=== PATIENT | male | born 1945 | race Caucasian/White ===

== ENCOUNTER 2020-02-09 09:20 | Outpatient (REF) | payer OTHER, SELFPAY | END 2020-02-09 09:21 | disposition home or self-care (01) | LOC: HO.LAB 09:20 | PROVIDERS: PCP Internal Medicine Geriatric Medicine; Visit Provider Internal Medicine | DX: Z20.828 Contact with and (suspected) exposure to other viral communicable diseases (principal) | CPT/HCPCS: C9803; U0003 ==

== ENCOUNTER 2021-12-23 10:20 | Outpatient (REF) | payer OTHER, SELFPAY | END 2021-12-23 10:21 | disposition home or self-care (01) | LOC: HO.US 10:20 | PROVIDERS: PCP Internal Medicine Geriatric Medicine; Visit Provider Internal Medicine Geriatric Medicine | DX: Z13.89 Encounter for screening for other disorder (principal) ==

== ENCOUNTER 2022-01-06 09:45 | Outpatient (REF) | payer OTHER, SELFPAY ==
[2022-01-06 11:46] LABS: Estimated Average Glucose 183 mg/dL
[2022-01-06 11:53] LABS: Prothrombin Time 11.6 SEC (10.0-13.1)
[2022-01-06 12:01] LABS: Alanine Aminotransferase 12 U/L (0-40); Albumin Level 4.4 g/dL (3.5-5.0); Alkaline Phosphatase 54 U/L (39-117); Anion Gap 16 (12-20); Aspartate Amino Transferase 22 U/L (5-37); Bilirubin Direct 0.5 mg/dL (0.0-0.5); Bilirubin Total 0.9 mg/dL (0.0-1.0); Blood Urea Nitrogen 25 mg/dL (9-16); Calcium 9.4 mg/dL (8.4-10.2); Carbon Dioxide 25 mmol/L (22-29); Chloride 104 mmol/L (96-108); Cholesterol 124 mg/dL; Estimated Glomerular Filt Rate 48; Glucose Random 181 mg/dL (60-115); HDL Cholesterol 35 mg/dL; Iron 91 mcg/dL (45-160); LDL Cholesterol Calculated 62 mg/dl; Percent Iron Saturation 21 % (15-50); Potassium 5.4 mmol/L (3.3-5.1); Sodium 140 mmol/L (135-145); Total Iron Binding Capacity 440 mcg/dL (228-428); Triglycerides 136 mg/dL; Unsaturated Iron Binding 349 ug/dL
[2022-01-06 12:20] LABS: HBS Num1 1.94 mIU/mL (0-7.99); HBc Num1 0.11 S/CO (0.00-0.79); HBsAGNum1 0.16 S/CO (0.00-0.99); Hepatitis B Core Antibody Nonreactive (Nonreactive); Hepatitis B Surface Antigen Negative (Negative); ~HepC Num1 0.18 S/CO (0.00-0.79); ~Hepatitis B Surface Antibody NONREACTIVE (Nonreactive); ~Hepatitis C Antibody Nonreactive (Nonreactive)
[2022-01-06 12:24] LABS: Ferritin 11 ng/mL (20-250); Vitamin D 25-OH Total 28.2 ng/mL (>30)
[2022-01-06 12:39] LABS: Folate 9.3 ng/mL (> or = 4.0); Vitamin B12 211 pg/mL (200-900)
[2022-01-07 08:10] LABS: Hepatitis A Antibody IgG REACTIVE (Nonreactive); ~Hepatitis A Antibody IgG 11.11 S/CO (0.00-0.99)
== END 2022-01-06 09:46 | disposition home or self-care (01) ==
LOC: HO.LAB 09:45
PROVIDERS: PCP Internal Medicine Geriatric Medicine; Visit Provider Internal Medicine
DX: K74.60 Unspecified cirrhosis of liver (principal); K29.70 Gastritis, unspecified, without bleeding; B96.81 Helicobacter pylori [H. pylori] as the cause of diseases classified elsewhere; Z86.010 Personal history of colon polyps; E11.9 Type 2 diabetes mellitus without complications; I10 Essential (primary) hypertension; Z79.899 Other long term (current) drug therapy
CPT/HCPCS: 80053; 80061; 80321; 82248; 82306; 82607; 82728; 82746; 83036; 83540; 85610; 86704; 86706; 86708; 86803; 87340; 99202

== ENCOUNTER 2022-01-23 09:43 | Outpatient (REF) | payer OTHER, SELFPAY ==
--- NOTE | ~2022-01-23 | US_ITS ---
EXAMINATION: US COMPLETE ABDOMEN WITH LIVER ELASTOGRAPHY CLINICAL INFORMATION: Hepatic cirrhosis. COMPARISON: None. TECHNIQUE: Real-time imaging of the abdominal viscera. Noninvasive ultrasound liver fibrosis assessment is performed using Candie ElastPQ point quantification shear wave elastography (2D-SWE) with a C5-2 MHz transducer. Multiple elastography samples are obtained. FINDINGS: PANCREAS: Limited. The visualized pancreatic head and proximal body are normal in appearance. The remainder of the pancreas is obscured from visualization by the overlying bowel gas. ABDOMINAL AORTA: The proximal, middle, and distal aortic segments are normal in caliber. INFERIOR VENA CAVA: Visualized portions are normal. LIVER: The liver demonstrates normal size, contour and generally increased echogenicity. No focal lesion or intrahepatic biliary duct dilatation. The right lobe measures 13.6 cm in length. The left lobe measures 11.4 cm in length. Portal flow is towards the liver (hepatopetal). Shear wave liver elastography median stiffness is 1.61 m/s (reference: normal median stiffness is 1.3 m/s or less). IQR/median stiffness to assess sampling precision is 0.13 (reference: good quality data set is IQR/median stiffness of 0.15 or less). GALLBLADDER: Normal. The gallbladder is physiologically distended without evidence of stones, sludge, polyps, wall thickening or pericholecystic fluid. COMMON BILE DUCT: Normal in caliber measuring 0.7 cm in diameter. RIGHT KIDNEY: There are multiple simple cysts, the largest at the interpolar aspect measuring 1.4 cm in maximal diameter.. No hydronephrosis. No renal calculi or focal parenchymal lesions. The kidney measures 10.3 cm in maximum dimension. LEFT KIDNEY: There are multiple simple cysts, the largest at the interpolar aspect measuring 4.3 cm in maximal diameter. No hydronephrosis. No renal calculi or focal parenchymal lesions. The kidney measures 11.4 cm in maximum dimension. SPLEEN: Normal. The spleen measures 13.0 cm in maximum dimension. FREE FLUID: None. US/US abdomen comp w elastography IMPRESSION: 1. There is generalized increase in hepatic echotexture, consistent with fatty infiltration or hepatocellular disease. Please correlate clinically. No focal hepatic mass or intrahepatic biliary dilatation is seen. 2. Liver elastography: In the absence of other known clinical signs, measurements rule out compensated advanced chronic liver disease. If there are known clinical signs, further testing may be needed for confirmation. 3. There is borderline splenomegaly. 4. There are benign, simple bilateral renal cysts, for which no imaging follow-up is recommended. 5. Technically limited ultrasound examination of the pancreas. REFERENCE: Society of Radiologists in Ultrasound Liver Stiffness Thresholds (2020): LIVER STIFFNESS THRESHOLDS: *Liver Stiffness equal or less than 1.3 m/s: High probability of being normal. *Liver Stiffness less than 1.7 m/s: In the absence of other known clinical signs, rules out compensated advanced chronic liver disease. *Liver Stiffness 1.7-2.1 m/s: Suggestive of compensated advanced chronic liver disease but need further test for confirmation. *Liver Stiffness over 2.1 m/s: Rules in compensated advanced chronic liver disease. *Liver Stiffness over 2.4 m/s: Suggestive of clinically significant portal hypertension. QUALITY OF DATA SET: *IQR/Median value equal or less than 0.15 implies a quality data set. *IQR/Median value over 0.15 implies a poor quality data set. SIGNIFICANT CHANGE FROM PRIOR EXAM: Significant change if liver stiffness measurement is 10% or greater from prior exam. OTHER CONSIDERATIONS: The stage of liver fibrosis may be overestimated in the setting of acute hepatitis, liver inflammation, elevated liver function tests, hepatic vascular congestion, obstructive cholestasis, non-fasting state, and infiltrative diseases such as amyloidosis and lymphoma. In some patients with NAFLD, the liver stiffness thresholds for compensated advanced chronic liver disease may be lower. In causes other than viral hepatitis and NAFLD, liver stiffness thresholds are not well established.
== END 2022-01-23 09:44 | disposition home or self-care (01) ==
LOC: HO.US 09:43
PROVIDERS: Visit Provider Internal Medicine Geriatric Medicine
DX: K74.60 Unspecified cirrhosis of liver (principal)
CPT/HCPCS: 76705; 76981

== ENCOUNTER 2022-03-05 08:56 | Day surgery (SDC) | payer OTHER, SELFPAY ==
[2022-02-26 13:37] VITALS: BMI 34.3
[2022-03-05] MEDS: Lactated Ringers 1,000 ML 50 ML IVCONT (09:20)
[2022-03-05 09:26] LABS: Hematocrit 38.6 % (42.0-52.0); Hemoglobin 12.8 g/dl (14.0-18.0); Mean Corpuscular HGB Conc 33.2 g/dl (31.0-36.0); Mean Corpuscular Hemoglobin 28.7 pg (27.0-33.0); Mean Corpuscular Volume 86.5 fL (80.0-98.0); Mean Platelet Volume 9.7 fL (9.4-12.4); Platelet Count 164 X10*3/uL (160-400); Red Blood Count 4.46 X10*6/uL (4.60-5.80); Red Cell Distribution Width 14.6 % (11.0-16.0); White Blood Count 5.7 X10*3/uL (4.8-10.8)
[2022-03-05 09:36] LABS: Anion Gap 11 (12-20); Carbon Dioxide 28 mmol/L (22-29); Chloride 105 mmol/L (96-108); Sodium 139 mmol/L (135-145)
--- NOTE | 2022-03-05 09:37 | MHC.SHP ---
Pre-Procedural Eval Section A Date of Service: 03/05/22 Section B Chief Complaint: Unspecified cirrhosis of liver, Hx of polyps Relevant Social History: Alcohol Use Present Medications: see Short Stay Collaborative assessment Medical History: Significant History (cirrhosis, H pylori, hx of 1.5 cm TA ) Allergies: Allergies Allergy/AdvReac Type Severity Reaction Status Date / Time hydrocodone [Vicodin] Allergy Intermediate Rash Verified 03/05/22 09:06 Review of Systems Review of Systems Comment: A 10 point ROS negative except as above Exam Exam Comment: Gen appear: No acute distress, well nourished HEENT: no icterus Chest: No overt resp distress Abd: soft, nontender, nondistended Psych: Stable affect, answering questions appropriately Neuro: A/Ox3 noted to move all extremities spontaneously Ext: no peripheral edema Plan Diagnosis/Plan: Unchanged I have reviewed the history and physical and performed a pertinent physical examination on my patient. No changes have occurred unless specified. Time Spent With Patient Time: Total time managing care of this patient today ____ minutes.
[2022-03-05 09:38] LABS: Glucose, Whole Blood 154 mg/dL (60-115)
[2022-03-05 09:40] VITALS: BP 157/83; PULSE 55; RESP 18; TEMP 36.7; O2SAT 99
--- NOTE | 2022-03-05 09:44 | P.CONAN_ITS ---
[facility] Active Problems Active Problems: All Active Problems (Updated 02/26/22 @ 13:41 by Haydee Infante RN) Cirrhosis (Acute) Personal history of colonic polyps (Acute) Helicobacter pylori gastritis (Acute) Past Medical History Medical History Alcohol use disorder BPH (benign prostatic hyperplasia) Chronic prescription opiate use Chronic renal insufficiency Cirrhosis Coronary artery disease CVA (cerebral vascular accident) Depression Elevated cholesterol Hypertension Obesity Sleep apnea Type 2 diabetes Family History Family history of problems with anesthesia: No Surgical History Surgical History History of esophagogastroduodenoscopy (EGD) Hx of colonoscopy Hx of transurethral resection of prostate History of Problems with Anesthesia: No Social History Social History Are you a primary laboratory animal care veterinarian to a significant other at home: No Do you presently have visiting nurse or other home services: No Patient Tobacco Use Status: Former Tobacco user Tobacco use type: Cigarette Use of substances other than those prescribed or required for medical reasons: No Have you been hit, kicked, punched, or otherwise hurt by someone within the past year? If so, by whom?: No Are you DNR?: No Advance Directives: No Advance Directives Information Provided: Yes (brochure mailed) Advance Directives on File: No Recently lost weight without trying: No Eating poorly because of decreased appetite: No Nutrition Risks: Surgical patient >75years Poor oral hygiene: No (adentulous) Meds Allergies Allergy/AdvReac Type Severity Reaction Status Date / Time hydrocodone [Vicodin] Allergy Intermediate Rash Verified 03/05/22 09:06 Active Medications: Current Medications Lactated Ringer's (Lr) 1,000 mls @ 50 mls/hr IVCONT .Q20H DANA Last Admin: 03/05/22 09:20 Dose: 50 mls/hr Home Medications Medication Instructions Recorded Confirmed Last Taken Type albuterol sulfate 90 mcg/actuation 1 puff inhalation Q4-6H PRN 01/06/22 02/26/22 Unknown History aerosol inhaler (Ventolin HFA) Wheezing aspirin 81 mg tablet,delayed 81 mg PO BEDTIME 01/06/22 02/26/22 Unknown History release atorvastatin 20 mg tablet 20 mg PO BEDTIME 01/06/22 02/26/22 Unknown History blood sugar diagnostic (FreeStyle #10 ea 01/06/22 Unknown History Lite Strips) dulaglutide 3 mg/0.5 mL 3 mg subcut QWEEK 01/06/22 02/26/22 Unknown History subcutaneous pen injector (Trulicity) fesoterodine 4 mg tablet,extended 4 mg PO BEDTIME 01/06/22 02/26/22 Unknown History release 24 hr (Toviaz) lancets 33 gauge (TRUEplus Lancets) #100 ea 01/06/22 Unknown History lisinopril 10 1 tab PO DAILY 01/06/22 02/26/22 Unknown History mg-hydrochlorothiazide 12.5 mg tablet metformin 500 mg tablet,extended 500 mg PO QPM 01/06/22 02/26/22 Unknown History release 24 hr metoprolol tartrate 50 mg tablet 50 mg PO BID 01/06/22 02/26/22 Unknown History naloxone 4 mg/actuation nasal spray 0 spray intranasal 01/06/22 Unknown History omeprazole 20 mg capsule,delayed 20 mg PO DAILY 01/06/22 02/26/22 Unknown History release oxycodone-acetaminophen 5 mg-325 1 tab PO Q12H PRN Pain 01/06/22 02/26/22 Unknown History mg tablet sertraline 50 mg tablet 50 mg PO DAILY 01/06/22 02/26/22 Unknown History sildenafil 100 mg tablet (Viagra) 100 mg PO DAILY PRN Erectile 01/06/22 02/26/22 Unknown History Dysfunction trazodone 50 mg tablet 50 mg PO BEDTIME 01/06/22 02/26/22 Unknown History coenzyme Q10-vit 1 cap PO DAILY 02/26/22 02/26/22 Unknown History D0-G9-O-magnesium-zinc 30 mg-25 mg-25 mg-250 mg cap ferrous sulfate 325 mg (65 mg 325 mg PO DAILY 02/26/22 02/26/22 Unknown History iron) tablet Exam Exam Date and Time: March 05, 2022 0944 Height,Weight and Vital Signs: Height 5 ft 6 in Weight 96.615 kg Last Vital Signs Temp 98.1 F 03/05/22 09:40 Pulse 55 03/05/22 09:40 Resp 18 03/05/22 09:40 BP 157/83 H 03/05/22 09:40 Pulse Ox 99 03/05/22 09:40 O2 Del Method 03/05/22 09:40 Pertinent Lab Results Pertinent Lab Results: Laboratory Tests 03/05/22 03/05/22 03/05/22 09:16 09:16 09:19 WBC 5.7 RBC 4.46 L Hgb 12.8 L Hct 38.6 L MCV 86.5 MCH 28.7 MCHC 33.2 RDW 14.6 Plt Count 164 MPV 9.7 Absolute Nucleated RBC 0.000 Nucleated RBC % (auto) 0.0 Sodium 139 Potassium 5.0 Chloride 105 Carbon Dioxide 28 Anion Gap 11 L POC Glucose 154 H Airway Mallampati Class: III TM Dist: >3cm Neck ROM: Full Assessment and Plan Assessment Anesthesia Assessment: Anesthesia Plan Discussed and Chart Reviewed Final Anesthetic Review Family History of Problems with Anesthesia: No History of Problems with Anesthesia: No NPO: Yes ASA Class: III Final Preanesthetic Review: No Changes in Pt Med Stat, Meds/Allgs Chart Reviewed, Consent Obtained/Reviewed and Anes Risks/Benef Reviewed Patient Risk: Intermediate Procedure Risk: Low Anesthetic Plan Anesthetic Plan: MAC: Disposition: Standard PACU
--- NOTE | 2022-03-05 10:03 | P.OP_ITS ---
Operative Note Operative Note Date of Service: 03/05/22 Narrative: Procedure:?Esophagogastroduodenoscopy and Colonoscopy Indication:?Cirrhosis r/o varices, personal hx of polyps Endoscopist:?Margaret Bruce MD Anesthesia Provider:?Dr Sheree Foote Anesthesia type:?MAC Instrument:?Olympus GIF-H190 and PCF-H190L ?? EGD Procedure:?? The procedure, indications, preparation and potential complications were reviewed with the patient, who indicated understanding and gave written informed consent to proceed. A physical exam was performed. The endoscope was introduced through the mouth, and advanced to the third part of duodenum. The mucosa was carefully examined on slow withdrawal of the endoscope. The patient tolerated the procedure well. There were no immediate complications.? ? EGD Findings:? * Esophagus:? White plaque like exudates noted throughout the esophagus. Flat v arices. The Z line was at 42 cm. * Stomach:?Diffuse congestion and erythema in mosaic pattern consistent with portal hypertensive gastropathy was noted in the whole stomach. Antral erosions and superficial ulcerations were noted. Random cold forceps gastric biopsies were taken to rule out H Pylori infection.? * Duodenum:? Small erosions and erythema noted in duodenal bulb. Remaining mucosa was endoscopically normal in the examined duodenum. Cold forceps biopsies were taken from duodenal bulb and second portion of the duodenum to rule out celiac sprue. Colonoscopy Procedure:? The patient was then turned for the colonoscopy. A digital rectal exam was performed which was abnormal due to findings of external hemorrhoids. The colonoscope was then inserted through the anus and advanced through the colon to the cecum at 75 cm and terminal ileum. The appendiceal orifice and ileocecal valve was identified.? Mucosa was carefully examined under high definition white light as the instrument was slowly withdrawn in a retrograde panoramic fashion. Retroflexion was performed in rectum. The procedure was not difficult. There were no immediate obvious complications. The quality of the prep was BBPS: 3+3+3 = excellent Withdrawal time 13 minutes. Limitations: No limitations. Findings: Mucosa: Scattered arteriovenous malformations were noted in right colon: 1 in cecum and 2 in ascending colon. These were completely ablated with argon plasma coagulation. Protruding lesions: * ?Small external hemorrhoids without stigmata of recent bleeding.? Impression:? 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 * Fluconazole 200mg x 14 days prescribed * NSBB not indicated for small varices in Child House Class A patient * Follow biopsy results. Our office will call or send a letter with results within 7-10 days.? * If H pylori +, patient will be prescribed eradication therapy followed by test of cure. * Avoid NSAIDs. * Repeat EGD in 2 years for variceal surveillance and repeat colonoscopy in 5 years due to history of advanced polyp Above has been reviewed with the patient. Relevant educational hand outs were provided at discharge.?
[2022-03-05 10:33] VITALS: BP 107/71; PULSE 75; RESP 18; TEMP 36.1; O2SAT 94
[2022-03-05 10:48] VITALS: BP 149/84; PULSE 61; RESP 16; TEMP 36.4; O2SAT 98
== END 2022-03-05 11:38 | disposition home or self-care (01) ==
PROVIDERS: Anesthesiology; PCP Internal Medicine Geriatric Medicine; Visit Provider Internal Medicine
PROC: (CPT 45388; principal; 2022-03-05 10:10)
DX: K74.60 Unspecified cirrhosis of liver (principal); I85.10 Secondary esophageal varices without bleeding; Z86.010 Personal history of colon polyps; K55.20 Angiodysplasia of colon without hemorrhage; K64.4 Residual hemorrhoidal skin tags; K29.50 Unspecified chronic gastritis without bleeding; B96.81 Helicobacter pylori [H. pylori] as the cause of diseases classified elsewhere; K76.6 Portal hypertension; K31.89 Other diseases of stomach and duodenum; B37.81 Candidal esophagitis; K29.80 Duodenitis without bleeding; I25.10 Atherosclerotic heart disease of native coronary artery without angina pectoris; Z87.891 Personal history of nicotine dependence; I10 Essential (primary) hypertension; E66.9 Obesity, unspecified; Z68.34 Body mass index [BMI] 34.0-34.9, adult; E11.9 Type 2 diabetes mellitus without complications; Z79.85 Long-term (current) use of injectable non-insulin antidiabetic drugs; Z86.73 Personal history of transient ischemic attack (TIA), and cerebral infarction without residual deficits; F10.91 Alcohol use, unspecified, in remission; Z79.891 Long term (current) use of opiate analgesic; Z88.8 Allergy status to other drugs, medicaments and biological substances; Z79.899 Other long term (current) drug therapy
CPT/HCPCS: 45388; 43239; 36415; 80051; 82947; 85027; 88305; 88342

== ENCOUNTER → 2022-03-20 12:16 | Outpatient (BNVA) | payer OTHER, SELFPAY | PROVIDERS: PCP Internal Medicine Geriatric Medicine; Visit Provider Internal Medicine | DX: K29.70 Gastritis, unspecified, without bleeding (principal); B96.81 Helicobacter pylori [H. pylori] as the cause of diseases classified elsewhere; K74.60 Unspecified cirrhosis of liver; Z86.010 Personal history of colon polyps; Z98.890 Other specified postprocedural states | CPT/HCPCS: 99212 ==

== ENCOUNTER 2022-11-18 12:52 | Outpatient (AMB) | payer OTHER, SELFPAY ==
--- NOTE | 2022-11-18 12:55 | MHC.OFFVIS ---
Intake Vital Signs 11/18/22 12:57 Height 5 ft 6 in Weight 213 lb 13.574 oz BMI 34.5 Blood Pressure Location Lt brachial Position Sitting Intake Visit Reasons: 6 Month Follow Up Intake Note: Rashid presents in the office as a 6 month follow up. CC: Ever since the EGD he has been having issues swallowing - they want a MRI on the stomach - there is a ball in his stomach when he lays down. 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 Patient is accompanied by his , who also helped interpret for him. Initial note 01/06/22: Per the notes received from primary care provider's office, he was seen at [facility] earlier in November for abdominal pain. Workup included CT scan of the abdomen that showed cirrhotic appearing liver. Of note, his lipase was also elevated at 663. CT abdomen and pelvis 11/21/2021: Scarring in the lower lobes with cystic lucencies similar to prior exam. Mild cardiomegaly. Liver demonstrates a nodular contour consistent with cirrhosis. Patient reports no gastrointestinal complaints to include abdominal pain, nausea, vomiting, changes in appetite, swelling in legs, new rash, shortness of breath, confusion. His only complaint is a bulge that appears in his abdomen whenever he is sitting up. He reports history of heavy alcohol use, but has been sober for 17 years. Also quit smoking. Does not report any history of IV drug use. No family history of liver disease to include liver cancer. Also does not report any history of iron overload, early COPD/pulmonary disease, early neuropsychiatric illness in the family. Recent endoscopy: EGD/colonoscopy 2019: EGD with H pylori gastritis. Patient does not recall getting treated. Colonoscopy was technically challenging and completed with position change and applying pressure. Good prep. 1.5 cm tubular adenoma in the transverse colon. US elastography 01/2022: No focal mass/lesion in the liver. Labs 01/06/22: Peth negative. Normal plt count. Not immune to HBV. EGD/colo 03/05/22 Excellent prep to the T.I. 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 Duodenal mucosa within normal limits; preserved villous architecture and no increased intraepithelial lymphocytes seen.? B.? Stomach, random, biopsy:? Gastric antral mucosa with moderate chronic active gastritis and numerous Helicobacter pylori organisms identified along with intestinal metaplasia; negative for dysplasia.? 03/20/22 Reports no gastrointestinal complaints. Denies any abdominal pain, nausea, vomiting, changes in appetite, increased abdominal distension. Continues to remain abstinent from alcohol. His recalls that he may have started hepatitis-B vaccination series, but does not know when he is due for next dose. She will check with his primary care provider. EGD and colonoscopy results discussed. Including results of H pylori, with gastric metaplasia. No family history of stomach cancer. 11/18/22: Coming in after Mar for follow up. Reports taking Abx however unsure if took them properly as reports still has some of the pills left. reports pt has frequent coughing and difficulty swallowing michael liquids - was not present at the time of previous EGD but has been progressing since earlier this year. No change in appetite, no weight loss. She is also worried about a lump that forms in his abdomen on sitting up. In terms of liver cirrhosis, no abd distention, swelling, shortness of breath or rash reported. Pt was not aware of US that was ordered for him earlier this year. Also due for surveillance EGD later this year. [facility] Medical History Chronic renal insufficiency Sleep apnea CVA (cerebral vascular accident) BPH (benign prostatic hyperplasia) Depression Alcohol use disorder Cirrhosis Elevated cholesterol Chronic prescription opiate use Obesity Type 2 diabetes Coronary artery disease Hypertension Surgical History Hx of transurethral resection of prostate History of esophagogastroduodenoscopy (EGD) Hx of colonoscopy Social History Are you a primary medication care manager to a significant other at home: No Do you presently have visiting nurse or other home services: No Patient Tobacco Use Status: Former Tobacco user Tobacco use type: Cigarette Review of Systems Const All systems reviewed & are unremarkable except as noted in HPI and below Physical Exam Vital Signs: BMI result Body Mass Index 34.5 Gen Appear: NAD, well nourished HEENT: No scleral icterus, no bitemporal wasting noted Chest: CTA CVS: Regular S1/S2 no murmurs Abd: soft, nontender, nondistended, no shifting dullness to percussion, bowel sounds active , diastasis recti Ext: +1 pitting peripheral edema bilaterally Neuro: A/Ox3, no asterixis Derm: Spider angioma on chest noted Assessment & Plan Assessment & Plan (1) Cirrhosis: Code(s): K74.60 - Unspecified cirrhosis of liver Plan: Compensated cirrhosis Child Class A Reviewed in detail that the likely etiology of his cirrhosis was background of alcohol use and more recently metabolic associated fatty liver disease. Patient and were educated on natural history and evolution of cirrhosis, and risk factors for progression of liver disease. Continues to remain compensated clinically, will obtain updated MELD labs. Also overdue for HCC screening. 1. No evidence of ascites on exam today. 2. No evidence of hepatic encephalopathy based on exam and history. 3. Variceal screening: Has PHG based on EGD 02/2022. Repeat due in 02/2023. 4. HCC screening: Overdue. US was initially ordered in July - reordered and pt and both urged to make the appt y. 5. Nutrition: Advised to take 2g Na diet. No protein restriction advised. Add a night time snack. (2) Helicobacter pylori gastritis: Code(s): K29.70 - Gastritis, unspecified, without bleeding; B96.81 - Helicobacter pylori [H. pylori] as the cause of diseases classified elsewhere Plan: Longstanding hx. Was noted on prior EGD as well but patient does not recall receiving antibiotics for H pylori 3 years ago. Most recent EGD 02/2022 also shows metaplasia and quad therapy was prescribed in Mar 2022. However pt does not recall taking this - also did not show for follow up H Pylori breath test. Plan: - H Pylori breath test in a week - Follow up in 6 weeks - retreat if positive - Given metaplasia, will need an EGD for mapping (see above) (3) Personal history of colonic polyps: Code(s): Z86.010 - Personal history of colonic polyps Plan: Has history of 1.5 cm tubular adenoma in 2019. No polyps noted on 02/2022 colo (excellent prep). Repeat colo will be due in 5 years (02/2027) due to personal hx of advanced adenoma. (4) Dysphagia: Code(s): R13.10 - Dysphagia, unspecified Plan: Ongoing for past 5-6 months mostly to liquids. No findings on recent EGD such as stricture or web. Will get a barium esophagogram to look for dysmotility. (5) Diastasis recti: Code(s): M62.08 - Separation of muscle (nontraumatic), other site Plan: Based on exam more consistent with diastasis however since is worried about a ventral hernia will obtain dedicated imaging. Plan: - CT Abd/pel with contrast - Avoid lifting heavy weights Plan Follow up in 6 weeks Orders: Orders Complete Blood Count no Diff Today K74.60 - Unspecified cirrhosis of liver Comprehensive Met. Panel Today K74.60 - Unspecified cirrhosis of liver [place] barium swallow Today R13.10 - Dysphagia, unspecified US abdomen complete Today K74.60 - Unspecified cirrhosis of liver CT abdomen pelvis w IV con Today M62.08 - Separation of muscle (nontraumatic), other site Prothrombin Time INR Today K74.60 - Unspecified cirrhosis of liver Patient Instructions: 1. Lab work today 2. Ultrasound liver ordered - pls call radiology to book this 3. XR test of esophagus ordered for swallowing 4. CT scan ordered for evaluation of ? hernia - pls call radiology to book this 5. Endoscopy due by the end of this year 6. H Pylori breath test to be booked in office 7. Follow up in 6 weeks Coding Level of Care Code Est Pt Level 5 (93149) Diagnoses Cirrhosis K74.60 Helicobacter pylori gastritis K29.70; B96.81 Personal history of colonic polyps Z86.010 Dysphagia R13.10 Diastasis recti M62.08
[2022-11-18 12:57] VITALS: BMI 34.5
== END 2022-11-18 14:08 | disposition home or self-care (01) ==
PROVIDERS: PCP Internal Medicine Geriatric Medicine; Visit Provider Internal Medicine
DX: K74.60 Unspecified cirrhosis of liver (principal); K29.70 Gastritis, unspecified, without bleeding; B96.81 Helicobacter pylori [H. pylori] as the cause of diseases classified elsewhere; Z86.010 Personal history of colon polyps; R13.10 Dysphagia, unspecified; M62.08 Separation of muscle (nontraumatic), other site
CPT/HCPCS: 99214

== ENCOUNTER 2022-11-18 12:52 | Outpatient (REF) | payer OTHER, SELFPAY ==
[2022-11-18 15:01] LABS: Hemoglobin 11.7 g/dl (14.0-18.0); Mean Corpuscular HGB Conc 30.8 g/dl (31.0-36.0); Mean Corpuscular Hemoglobin 24.9 pg (27.0-33.0); Mean Corpuscular Volume 80.9 fL (80.0-98.0); Mean Platelet Volume 9.8 fL (9.4-12.4); Platelet Count 235 X10*3/uL (160-400); Red Cell Distribution Width 15.4 % (11.0-16.0); White Blood Count 5.9 X10*3/uL (4.8-10.8)
[2022-11-18 15:32] LABS: Prothrombin Time 12.2 SEC (11.1-13.3)
[2022-11-18 15:40] LABS: Alanine Aminotransferase 15 U/L (0-40); Albumin Level 4.3 g/dL (3.5-5.0); Alkaline Phosphatase 58 U/L (39-117); Anion Gap 13 (12-20); Aspartate Amino Transferase 25 U/L (5-37); Bilirubin Total 0.8 mg/dL (0.0-1.0); Blood Urea Nitrogen 20 mg/dL (9-16); Calcium 10.1 mg/dL (8.4-10.2); Carbon Dioxide 27 mmol/L (22-29); Chloride 105 mmol/L (96-108); Estimated Glomerular Filt Rate 56; Glucose Random 123 mg/dL (60-115); Potassium 5.7 mmol/L (3.3-5.1); Sodium 139 mmol/L (135-145); Total Protein 8.3 g/dL (6.5-8.0)
== END 2022-11-18 12:53 | disposition home or self-care (01) ==
LOC: HO.LAB 12:52
PROVIDERS: PCP Internal Medicine Geriatric Medicine; Visit Provider Internal Medicine
DX: K74.60 Unspecified cirrhosis of liver (principal); I10 Essential (primary) hypertension; K29.70 Gastritis, unspecified, without bleeding; B96.81 Helicobacter pylori [H. pylori] as the cause of diseases classified elsewhere; R13.10 Dysphagia, unspecified; M62.08 Separation of muscle (nontraumatic), other site; Z86.010 Personal history of colon polyps
CPT/HCPCS: 36415; 80053; 85027; 85610; 99212

== ENCOUNTER 2022-11-23 08:40 | Outpatient (REF) | payer OTHER, SELFPAY ==
[2022-11-23 11:47] LABS: Anion Gap 11 (12-20); Blood Urea Nitrogen 18 mg/dL (9-16); Calcium 9.2 mg/dL (8.4-10.2); Carbon Dioxide 27 mmol/L (22-29); Chloride 107 mmol/L (96-108); Estimated Glomerular Filt Rate 57; Glucose Random 215 mg/dL (60-115); Potassium 5.1 mmol/L (3.3-5.1); Sodium 140 mmol/L (135-145)
== END 2022-11-23 08:41 | disposition home or self-care (01) ==
LOC: HO.HHCL 08:40
PROVIDERS: Visit Provider Nurse Practitioner Primary Care
DX: E87.5 Hyperkalemia (principal)
CPT/HCPCS: 36415; 80048

== ENCOUNTER 2022-11-23 09:36 | Outpatient (REF) | payer OTHER, SELFPAY ==
--- NOTE | ~2022-11-23 | US_ITS ---
EXAMINATION: US ABDOMEN COMPLETE CLINICAL INFORMATION: Unspecified cirrhosis of liver. COMPARISON: US abdomen complete with liver elastography 01/23/2022. TECHNIQUE: Real-time imaging of the abdominal viscera. Technically limited study secondary to body habitus. FINDINGS: PANCREAS: Normal head and body, the tail is obscured by bowel gas. ABDOMINAL AORTA: The abdominal aorta is normal caliber with atherosclerotic plaque. INFERIOR VENA CAVA: Visualized portions are normal. LIVER: The liver is normal in size. The liver contour is normal. There is diffuse increased liver parenchymal echogenicity. No focal hepatic lesion. There is no intrahepatic biliary duct dilatation seen. GALLBLADDER: The patient was not fasting for this study. The gallbladder is slightly contracted limiting evaluation. The gallbladder shows no evidence of stones, sludge, polyps, wall thickening or pericholecystic fluid. COMMON BILE DUCT: Normal in caliber measuring 0.7 cm in diameter. RIGHT KIDNEY: 1.0 x 0.8 x 1.0 cm simple exophytic cyst off the lower pole and 0.8 x 0.8 x 0.8 cm mid to lower pole simple cyst are seen. No imaging follow-up of these findings is recommended. No hydronephrosis or renal calculi. The kidney measures 10.7 cm in maximum dimension. LEFT KIDNEY: 4.1 x 3.5 x 4.2 cm simple exophytic cyst off the mid kidney and 0.67 x 0.6 x 1.0 cm simple cyst in the lower pole are seen. No imaging follow-up of these findings is recommended. No hydronephrosis or renal calculi. The kidney measures 11.0 cm in maximum dimension. SPLEEN: Normal. The spleen measures 12.0 cm in maximum dimension. FREE FLUID: None. US/US abdomen complete IMPRESSION: 1. There is generalized increased hepatic echogenicity, consistent with fatty infiltration or hepatocellular disease. Please correlate clinically. No hepatic mass or intrahepatic biliary dilatation. 2. The patient was not fasting for this study. The gallbladder is slightly contracted limiting evaluation.
== END 2022-11-23 09:37 | disposition home or self-care (01) ==
LOC: HO.US 09:36
PROVIDERS: Visit Provider Internal Medicine
DX: K74.60 Unspecified cirrhosis of liver (principal)
CPT/HCPCS: 76700

== ENCOUNTER → 2022-11-30 08:42 | Outpatient (BNVA) | payer OTHER, SELFPAY | PROVIDERS: PCP Internal Medicine Geriatric Medicine; Visit Provider Internal Medicine | DX: Z11.0 Encounter for screening for intestinal infectious diseases (principal) | CPT/HCPCS: 99211 ==

== ENCOUNTER 2022-11-30 16:19 | Outpatient (REF) | payer OTHER, SELFPAY ==
[2022-12-04 15:44] LABS: H Pylori Breath Test Negative (Negative)
== END 2022-11-30 16:20 | disposition home or self-care (01) ==
LOC: HO.LNP 16:19
PROVIDERS: Visit Provider Internal Medicine
DX: Z11.0 Encounter for screening for intestinal infectious diseases (principal)
CPT/HCPCS: 83013

== ENCOUNTER 2022-12-03 10:51 | Outpatient (REF) | payer OTHER, SELFPAY ==
--- NOTE | ~2022-12-03 | CT_ITS ---
EXAMINATION: CT ABDOMEN AND PELVIS WITH CONTRAST CLINICAL INFORMATION: Separation of muscle/nontraumatic other site COMPARISON: Previous abdominal ultrasound most recent 11/23/2022 TECHNIQUE: Multidetector volumetric images were obtained from the superior aspect of the liver through the pubic symphysis following administration 85 mL of Omnipaque 350 intravenous contrast. Sagittal and coronal reformatted images were obtained on the technologist's workstation. Oral contrast: Yes This CT examination was performed using dose optimization techniques as appropriate, variously including the following: *Automated exposure control *Adjustment of mA and/or kV according to patient size (this includes techniques or standardized protocols for targeted exams where dose is matched to indication/reason for exam; i.e. extremities or head) *Use of iterative reconstruction technique DLP: 569 mGy-cm FINDINGS: LUNG BASES: Increased peripheral interstitial markings at the lung bases, right greater than left. Appearance is questionable for mild interstitial lung disease. LIVER, GALLBLADDER, AND BILIARY TREE: The liver is normal in size, shape, and attenuation. Small benign-appearing calcification in the left lobe of the liver. No focal hepatic lesion or biliary ductal dilatation is present. The gallbladder is unremarkable with no evidence of radiopaque gallstones, gallbladder wall thickening, or obvious pericholecystic inflammatory changes. PANCREAS: Unremarkable. SPLEEN: Unremarkable. ADRENAL GLANDS: Unremarkable. KIDNEYS AND URETERS: The kidneys are normal in size, shape, and attenuation. No hydronephrosis, hydroureter, or calculi seen. No perinephric stranding. Bilateral renal cysts. No imaging follow-up recommended. BLADDER: Unremarkable. GASTROINTESTINAL TRACT: Mild diverticulosis of the colon. The small and large bowel are otherwise unremarkable. The appendix is unremarkable. There is a food in the stomach limiting evaluation. ABDOMINAL WALL: No abdominal wall hernia is seen. There is fat in both inguinal canals and question small right inguinal hernia. LYMPH NODES: Normal. VASCULAR: Severe atherosclerotic disease. No aneurysm. PELVIC VISCERA: Unremarkable. OSSEOUS STRUCTURES: Mild 4 mm anterior subluxation of L5 with respect to S1. Degenerative changes of the spine and hip joints. CT/CT abdomen pelvis w IV con IMPRESSION: No abdominal wall hernia. Fat in both inguinal canals and question small right inguinal hernia. Mild diverticulosis of the colon. No evidence of diverticulitis. Atherosclerotic disease. Fleischner guidelines were followed.
[2022-12-03] MEDS: iohexoL 350 MG/ML 100 ML INFUS..BTL IV (13:55)
[2022-12-03] MEDS: Barium Sulfate Oral (Vanilla) 450 ML ORAL.SUSP 900 ML PO (13:56)
== END 2022-12-03 10:52 | disposition home or self-care (01) ==
LOC: HO.CT 10:51
PROVIDERS: PCP Internal Medicine Geriatric Medicine; Visit Provider Internal Medicine
DX: M62.08 Separation of muscle (nontraumatic), other site (principal)
CPT/HCPCS: 74177; Q9967

== ENCOUNTER 2022-12-07 10:53 | Outpatient (REF) | payer OTHER, SELFPAY ==
[2022-12-07 14:00] LABS: Cholesterol 122 mg/dL (<200); HDL Cholesterol 33 mg/dL (>40); LDL Cholesterol Calculated 56 mg/dL (<100); Triglycerides 166 mg/dL (<150)
== END 2022-12-07 10:54 | disposition home or self-care (01) ==
LOC: HO.HHCL 10:53
PROVIDERS: Visit Provider Internal Medicine Geriatric Medicine
DX: E11.69 Type 2 diabetes mellitus with other specified complication (principal)
CPT/HCPCS: 36415; 80061

== ENCOUNTER 2022-12-30 08:35 | Outpatient (AMB) | payer OTHER, SELFPAY ==
--- NOTE | 2022-12-30 08:36 | MHC.OFFVIS ---
Intake Vital Signs 12/30/22 08:40 Height 5 ft 6 in Weight 218 lb 4.122 oz BMI 35.2 BP 141/79 H Blood Pressure Location Lt brachial Position Sitting Pulse 54 Intake Visit Reasons: 6 week follow up Intake Note: Rashid presents in the office as a 6 week follow up. CC: He is concerned about the prep. He is concerned he is concerned he wont be able to finish it. Allergies hydrocodone [Vicodin] Allergy (Intermediate, Verified 12/30/22 08:44) Rash HPI HPI Comments History of Present Illness Details This is a 76-year-old gentleman with past medical history of hypertension, type 2 diabetes, obesity, coronary artery disease, remote history of alcohol use disorder, who was referred to the gastroenterology office for newly diagnosed cirrhosis. Patient is accompanied by his , who also helped interpret for him. Initial note 01/06/22: Per the notes received from primary care provider's office, he was seen at [facility] earlier in November for abdominal pain. Workup included CT scan of the abdomen that showed cirrhotic appearing liver. Of note, his lipase was also elevated at 663. CT abdomen and pelvis 11/21/2021: Scarring in the lower lobes with cystic lucencies similar to prior exam. Mild cardiomegaly. Liver demonstrates a nodular contour consistent with cirrhosis. Patient reports no gastrointestinal complaints to include abdominal pain, nausea, vomiting, changes in appetite, swelling in legs, new rash, shortness of breath, confusion. His only complaint is a bulge that appears in his abdomen whenever he is sitting up. He reports history of heavy alcohol use, but has been sober for 17 years. Also quit smoking. Does not report any history of IV drug use. No family history of liver disease to include liver cancer. Also does not report any history of iron overload, early COPD/pulmonary disease, early neuropsychiatric illness in the family. Recent endoscopy: EGD/colonoscopy 2019: EGD with H pylori gastritis. Patient does not recall getting treated. Colonoscopy was technically challenging and completed with position change and applying pressure. Good prep. 1.5 cm tubular adenoma in the transverse colon. US elastography 01/2022: No focal mass/lesion in the liver. Labs 01/06/22: Peth negative. Normal plt count. Not immune to HBV. EGD/colo 03/05/22 Excellent prep to the T.I. 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 Duodenal mucosa within normal limits; preserved villous architecture and no increased intraepithelial lymphocytes seen.? B.? Stomach, random, biopsy:? Gastric antral mucosa with moderate chronic active gastritis and numerous Helicobacter pylori organisms identified along with intestinal metaplasia; negative for dysplasia.? 03/20/22 Reports no gastrointestinal complaints. Denies any abdominal pain, nausea, vomiting, changes in appetite, increased abdominal distension. Continues to remain abstinent from alcohol. His recalls that he may have started hepatitis-B vaccination series, but does not know when he is due for next dose. She will check with his primary care provider. EGD and colonoscopy results discussed. Including results of H pylori, with gastric metaplasia. No family history of stomach cancer. 11/18/22: Coming in after Mar for follow up. Reports taking Abx however unsure if took them properly as reports still has some of the pills left. reports pt has frequent coughing and difficulty swallowing michael liquids - was not present at the time of previous EGD but has been progressing since earlier this year. No change in appetite, no weight loss. She is also worried about a lump that forms in his abdomen on sitting up. In terms of liver cirrhosis, no abd distention, swelling, shortness of breath or rash reported. Pt was not aware of US that was ordered for him earlier this year. Also due for surveillance EGD later this year. 12/30/22: Reviewed H Pylori breath test - eradicated. Pt continues to report lump forming in the abdomen and remains worried about a hernia. Reassured that based on CT findings no ventral hernia and that this is likely diastasis. Otherwise no other GI issues to include abd pain, N,V, changes in BMs. FORMERLY [facility] Medical History Chronic renal insufficiency Sleep apnea CVA (cerebral vascular accident) BPH (benign prostatic hyperplasia) Depression Alcohol use disorder Cirrhosis Elevated cholesterol Chronic prescription opiate use Obesity Type 2 diabetes Coronary artery disease Hypertension Surgical History Hx of transurethral resection of prostate History of esophagogastroduodenoscopy (EGD) Hx of colonoscopy Social History Are you a primary pharmacy care coordinator to a significant other at home: No Do you presently have visiting nurse or other home services: No Patient Tobacco Use Status: Former Tobacco user Tobacco use type: Cigarette Review of Systems Const All systems reviewed & are unremarkable except as noted in HPI and below Physical Exam Vital Signs: Last Vital Signs Pulse 54 12/30/22 08:40 BP 141/79 H 12/30/22 08:40 BMI result Body Mass Index 35.2 Gen Appear: NAD, well nourished HEENT: No scleral icterus, no bitemporal wasting noted Chest: CTA CVS: Regular S1/S2 no murmurs Abd: soft, nontender, nondistended, no shifting dullness to percussion, bowel sounds active , diastasis recti Ext: +1 pitting peripheral edema bilaterally Neuro: A/Ox3, no asterixis Derm: Spider angioma on chest noted Assessment & Plan Assessment & Plan (1) Cirrhosis: Code(s): K74.60 - Unspecified cirrhosis of liver Plan: Compensated cirrhosis MELD-Na 8 Child Class A Reviewed in detail that the likely etiology of his cirrhosis was previous background of alcohol use and more recently metabolic associated fatty liver disease. Patient and were educated on natural history and evolution of cirrhosis, and risk factors for progression of liver disease. Continues to remain compensated clinically. 1. No evidence of ascites or hepatic encephalopathy based on exam and history. 2. Variceal screening: Has PHG based on EGD 02/2022. Repeat due in 02/2023. To be booked today. 3. HCC screening: US Abd due in May 2023. 4. Nutrition: Advised to take 2g Na diet. No protein restriction advised. Add a night time snack. 5. Avoid NSAIDs. Tylenol ok to take for pain control as needed up to 2g/day. 6. Well compensated cirrhosis with low MELD, no indication for transplant referral currently. (2) Helicobacter pylori gastritis: Code(s): K29.70 - Gastritis, unspecified, without bleeding; B96.81 - Helicobacter pylori [H. pylori] as the cause of diseases classified elsewhere Plan: Longstanding hx. Was noted on prior EGD as well but patient does not recall receiving antibiotics for H pylori 3 years ago. Most recent EGD 02/2022 also shows metaplasia and quad therapy was prescribed in Mar 2022. Most recent breath test is negative, i.e successfully eradicated. (3) Personal history of colonic polyps: Code(s): Z86.010 - Personal history of colonic polyps Plan: Has history of 1.5 cm tubular adenoma in 2019. No polyps noted on 02/2022 colo (excellent prep). Repeat colo will be due in 5 years (02/2027) due to personal hx of advanced adenoma. (4) Dysphagia: Code(s): R13.10 - Dysphagia, unspecified Plan: Ongoing for past 5-6 months mostly to liquids. No findings on recent EGD such as stricture or web. Reminded to book barium swallow. GEtting booked for EGD anyway. (5) Diastasis recti: Code(s): M62.08 - Separation of muscle (nontraumatic), other site Plan: No abd wall hernia noted on CT. - Can discuss PT referral with PCP for core strengthening - Avoid lifting heavy weights Plan Follow up after EGD Coding Level of Care Code Est Pt Level 4 (27504) Diagnoses Cirrhosis K74.60 Helicobacter pylori gastritis K29.70; B96.81 Personal history of colonic polyps Z86.010 Dysphagia R13.10 Diastasis recti M62.08
[2022-12-30 08:40] VITALS: BP 141/79; PULSE 54; BMI 35.2
== END 2022-12-30 13:22 | disposition home or self-care (01) ==
PROVIDERS: PCP Internal Medicine Geriatric Medicine; Visit Provider Internal Medicine
DX: K74.60 Unspecified cirrhosis of liver (principal); K29.70 Gastritis, unspecified, without bleeding; B96.81 Helicobacter pylori [H. pylori] as the cause of diseases classified elsewhere; Z86.010 Personal history of colon polyps; R13.10 Dysphagia, unspecified; M62.08 Separation of muscle (nontraumatic), other site
CPT/HCPCS: 99214

== ENCOUNTER → 2022-12-30 08:35 | Outpatient (BNVA) | payer OTHER, SELFPAY | PROVIDERS: PCP Internal Medicine Geriatric Medicine; Visit Provider Internal Medicine | DX: K74.60 Unspecified cirrhosis of liver (principal); K29.70 Gastritis, unspecified, without bleeding; B96.81 Helicobacter pylori [H. pylori] as the cause of diseases classified elsewhere; R13.10 Dysphagia, unspecified; M62.08 Separation of muscle (nontraumatic), other site; Z86.010 Personal history of colon polyps | CPT/HCPCS: 99212 ==

== ENCOUNTER 2023-03-02 07:39 | Day surgery (SDC) | payer OTHER, SELFPAY ==
[2023-02-25 11:06] VITALS: BMI 35.2
[2023-03-02 07:58] VITALS: BP 147/67; PULSE 70; RESP 17; TEMP 36.3; O2SAT 98
[2023-03-02 07:59] VITALS: BMI 34.9
[2023-03-02 08:04] LABS: Glucose, Whole Blood 234 mg/dL (60-115)
[2023-03-02] MEDS: Lactated Ringers 1,000 ML 50 ML IVCONT (08:14)
--- NOTE | 2023-03-02 08:23 | P.CONAN_ITS ---
REPLACED BY [facility] Active Problems Active Problems: All Active Problems (Updated 11/18/22 @ 13:55 by Margaret Bruce MD) Diastasis recti (Acute) Dysphagia (Acute) Helicobacter pylori gastritis (Acute) Personal history of colonic polyps (Acute) Cirrhosis (Acute) Past Medical History Medical History Chronic renal insufficiency Sleep apnea CVA (cerebral vascular accident) BPH (benign prostatic hyperplasia) Depression Alcohol use disorder Cirrhosis Elevated cholesterol Chronic prescription opiate use Obesity Type 2 diabetes Coronary artery disease Hypertension Family History Family history of problems with anesthesia: No Surgical History Surgical History Hx of transurethral resection of prostate History of esophagogastroduodenoscopy (EGD) Hx of colonoscopy History of Problems with Anesthesia: No Social History Social History (Updated 02/25/23 @ 11:16 by Angie Yost RN) Household Members: Spouse Housing: House Are you a primary primary care pediatrician to a significant other at home: No Do you presently have visiting nurse or other home services: Yes Patient Tobacco Use Status: Former Tobacco user Tobacco use type: Cigarette Use of substances other than those prescribed or required for medical reasons: No Are you DNR?: No Advance Directives: No Advance Directives Information Provided: Yes Advance Directives on File: No Nutrition Risks: Surgical patient >75years Meds Allergies Allergy/AdvReac Type Severity Reaction Status Date / Time hydrocodone [Vicodin] Allergy Intermediate Rash Verified 02/25/23 11:10 Active Medications: Current Medications Lactated Ringer's (Lr) 1,000 mls @ 50 mls/hr IVCONT .Q20H DANA Last Admin: 03/02/23 08:14 Dose: 50 mls/hr Home Medications Medication Instructions Recorded Confirmed Last Taken Type albuterol sulfate 90 mcg/actuation 1 puff inhalation Q4-6H PRN 01/06/22 02/25/23 Unknown History aerosol inhaler (Ventolin HFA) Wheezing aspirin 81 mg tablet,delayed 81 mg PO BEDTIME 01/06/22 02/25/23 Unknown History release atorvastatin 20 mg tablet 20 mg PO BEDTIME 01/06/22 02/25/23 Unknown History blood sugar diagnostic (FreeStyle #10 ea 01/06/22 Unknown History Lite Strips) dulaglutide 3 mg/0.5 mL 3 mg subcut QWEEK 01/06/22 02/25/23 02/21/23 History subcutaneous pen injector (Trulicity) fesoterodine 4 mg tablet,extended 4 mg PO BEDTIME 01/06/22 02/25/23 Unknown History release 24 hr (Toviaz) lancets 33 gauge (TRUEplus Lancets) #100 ea 01/06/22 Unknown History lisinopril 10 1 tab PO DAILY 01/06/22 02/25/23 Unknown History mg-hydrochlorothiazide 12.5 mg tablet metoprolol tartrate 50 mg tablet 50 mg PO BID 01/06/22 02/25/23 Unknown History naloxone 4 mg/actuation nasal spray 0 spray intranasal 01/06/22 Unknown History oxycodone-acetaminophen 5 mg-325 1 tab PO Q12H PRN Pain 01/06/22 02/25/23 Unknown History mg tablet sertraline 50 mg tablet 50 mg PO DAILY 01/06/22 02/25/23 Unknown History sildenafil 100 mg tablet (Viagra) 100 mg PO DAILY PRN Erectile 01/06/22 02/26/22 Unknown History Dysfunction trazodone 50 mg tablet 50 mg PO BEDTIME 01/06/22 02/25/23 Unknown History coenzyme Q10-vit 1 cap PO DAILY 02/26/22 02/25/23 Unknown History S3-T5-C-magnesium-zinc 30 mg-25 mg-25 mg-250 mg cap ferrous sulfate 325 mg (65 mg 325 mg PO DAILY 02/26/22 02/25/23 Unknown History iron) tablet losartan 50 mg tablet 50 mg PO DAILY 11/18/22 02/25/23 Unknown History multivitamin 1 tab PO DAILY 11/18/22 02/25/23 Unknown History sitagliptin phosphate 50 1 tab PO BID 11/18/22 02/25/23 Unknown History mg-metformin 500 mg tablet (Janumet) duloxetine 30 mg capsule,delayed 30 mg PO DAILY 12/30/22 02/25/23 Unknown History release olopatadine 0.2 % eye drops 1 drp ophthalmic (eye) QAM 12/30/22 02/25/23 Unknown History Exam Height,Weight and Vital Signs: Height 5 ft 6 in Weight 98.2 kg Last Vital Signs Temp 97.4 F 03/02/23 07:58 Pulse 70 03/02/23 07:58 Resp 17 03/02/23 07:58 BP 147/67 H 03/02/23 07:58 Pulse Ox 98 03/02/23 07:58 O2 Del Method Room Air 03/02/23 07:58 Pertinent Lab Results Pertinent Lab Results: Laboratory Tests 03/02/23 07:56 POC Glucose 234 H Airway Mallampati Class: III TM Dist: >3cm Neck ROM: Full Denture: Upper and Lower Heart: rrr Lungs: clear Assessment and Plan Final Anesthetic Review Family History of Problems with Anesthesia: No History of Problems with Anesthesia: No NPO: Yes ASA Class: IV Final Preanesthetic Review: No Changes in Pt Med Stat, Meds/Allgs Chart Reviewed, Consent Obtained/Reviewed and Anes Risks/Benef Reviewed Patient Risk: High Procedure Risk: Low Anesthetic Plan Anesthetic Plan: MAC: Disposition: Standard PACU
--- NOTE | 2023-03-02 08:26 | MHC.SHP ---
Pre-Procedural Eval Section A Date of Service: 03/02/23 Section B Chief Complaint: Varicose veins of other specified sites Relevant Family History (Specify if Yes): No Relevant Social History: None Present Medications: see Short Stay Collaborative assessment Medical History: Significant History (Chronic renal insufficiency Sleep apnea CVA (cerebral vascular accident) BPH (benign prostatic hyperplasia) Depression Alcohol use disorder Cirrhosis Elevated cholesterol Chronic prescription opiate use Obesity Type 2 diabetes Coronary artery disease Hypertension) History of Previous Operations: Relevant previous surgery/procedure and date(s) ( Hx of transurethral resection of prostate History of esophagogastroduodenoscopy (EGD) Hx of colonoscopy) Allergies: Allergies Allergy/AdvReac Type Severity Reaction Status Date / Time hydrocodone [Vicodin] Allergy Intermediate Rash Verified 02/25/23 11:10 Review of Systems Sugical H&P ROS: Negative: Constitution, Cardiovascular, Respiratory, Neurological, Psychiatric, Hem-Onc, Allergic/Immunologic, Gastrointestinal, Genitourinary, Musculoskeletal, Integumentary, Endocrine and Eyes/Ears/Nose/Throat Exam Surgical H&P Exam: Normal: HEENT, Normal: Heart, Normal: Lungs, Normal: Extremities, Normal: Abdomen, Normal: Skin and Normal: Neurological Plan Diagnosis/Plan: Unchanged I have reviewed the history and physical and performed a pertinent physical examination on my patient. No changes have occurred unless specified. Time Spent With Patient Time: Total time managing care of this patient today ____ minutes.
--- NOTE | 2023-03-02 08:27 | W.PM.OPN ---
Operative Note Operative Note Date of Service: 03/02/23 Narrative: Procedure Description: EGD Indication: hx of varices Anesthesia: MAC FLEXIBLE TRANSORAL UPPER GASTROINTESTINAL ENDOSCOPY UPPER ENDOSCOPY Consent: Indications for the procedure and potential complications of bleeding, perforation, reaction to medications and missed diagnosis were discussed with the patient and informed consent was obtained. Instrument: Olympus GIF H 190 J mid size upper endoscope Monitoring: Vital signs and clinical assessment, continuous EKG monitoring, Pulse oximetry, Carbon Dioxide monitoring and blood pressure monitoring were done throughout the procedure. Procedure: The patient was placed in the left lateral decubitis position and pre-procedure medications were administered and a bite block was placed. The endoscope was inserted into the mouth and advanced under direct vision to the third part of duodenum. A careful inspection was made as the upper endoscope was withdrawn including a retroflexed examination of the proximal stomach; Findings and interventions are described below. Findings: Larynx:normal Esophagus: GE junction at 40 cm, diaphragm hiatus at 40 cm, mild esophagitis, irregualr z line, small flat varices. Stomach: Mild patchy gastric erythema consistent w/ mild portal hypertensive gastropathy. Grade 2 flap valve on retroflexed examination of the cardia. no gastric varices seen Duodenum: Normal bulb and descending duodenum Intervention: none Impression/Findings: small varices mild portal hypertensive gastropathy PLAN: repeat EGD in 1-2 yr or earlier if clinically indicated, can consider WATS next time if GEJ still irregular if any clinical signs of reflux then low dose PPI
[2023-03-02 08:45] VITALS: BP 132/71; PULSE 79; RESP 20; TEMP 36.2; O2SAT 97
[2023-03-02 09:00] VITALS: BP 122/67; PULSE 56; RESP 18; TEMP 36.4; O2SAT 99
== END 2023-03-02 09:42 | disposition home or self-care (01) ==
PROVIDERS: PCP Internal Medicine Geriatric Medicine; Visit Provider Internal Medicine Gastroenterology
PROC: 0DJ08ZZ Inspection of Upper Intestinal Tract, Via Natural or Artificial Opening Endoscopic (ICD-10-PCS; CPT 43235; principal; 2023-03-02 10:10)
DX: I85.00 Esophageal varices without bleeding (principal); K20.80 Other esophagitis without bleeding; K22.89 Other specified disease of esophagus; K44.9 Diaphragmatic hernia without obstruction or gangrene; K76.6 Portal hypertension; K31.89 Other diseases of stomach and duodenum; K74.60 Unspecified cirrhosis of liver; I25.10 Atherosclerotic heart disease of native coronary artery without angina pectoris; E11.22 Type 2 diabetes mellitus with diabetic chronic kidney disease; I12.9 Hypertensive chronic kidney disease with stage 1 through stage 4 chronic kidney disease, or unspecified chronic kidney disease; N18.9 Chronic kidney disease, unspecified; M62.08 Separation of muscle (nontraumatic), other site; E78.00 Pure hypercholesterolemia, unspecified; I69.941 Monoplegia of lower limb following unspecified cerebrovascular disease affecting right dominant side; F10.91 Alcohol use, unspecified, in remission; Z79.84 Long term (current) use of oral hypoglycemic drugs; Z79.85 Long-term (current) use of injectable non-insulin antidiabetic drugs; Z99.89 Dependence on other enabling machines and devices; Z88.5 Allergy status to narcotic agent; Z87.891 Personal history of nicotine dependence
CPT/HCPCS: 43235; 82947; J2704

== ENCOUNTER → 2023-03-02 07:39 | Outpatient (BNV) | payer OTHER, SELFPAY | PROVIDERS: PCP Internal Medicine Geriatric Medicine; Visit Provider Internal Medicine Gastroenterology | DX: I85.00 Esophageal varices without bleeding (principal); K76.6 Portal hypertension; K20.90 Esophagitis, unspecified without bleeding | CPT/HCPCS: 43235 ==

== ENCOUNTER 2023-03-25 09:56 | Outpatient (REF) | payer OTHER, SELFPAY | END 2023-03-25 09:57 | disposition home or self-care (01) | LOC: HO.HHCL 09:56 | PROVIDERS: Visit Provider Internal Medicine Geriatric Medicine | DX: Z13.89 Encounter for screening for other disorder (principal) ==

== ENCOUNTER 2023-03-26 09:51 | Outpatient (REF) | payer OTHER, SELFPAY ==
[2023-03-26 12:41] LABS: Creatinine Urine 295.56 mg/dL; Microalbum/Creatinine Ratio Ur 47.3 ug/mg cr (<30)
== END 2023-03-26 09:52 | disposition home or self-care (01) ==
LOC: HO.HHCL 09:51
PROVIDERS: Visit Provider Internal Medicine Geriatric Medicine
DX: E11.69 Type 2 diabetes mellitus with other specified complication (principal)
CPT/HCPCS: 82043; 82570

== ENCOUNTER 2023-05-13 08:38 | Outpatient (REF) | payer OTHER, SELFPAY ==
--- NOTE | ~2023-05-13 | US_ITS ---
EXAMINATION: US ABDOMEN COMPLETE CLINICAL INFORMATION: Unspecified cirrhosis of liver. COMPARISON: CT abdomen and pelvis 12/03/2022. Ultrasound abdomen complete 11/23/2022. Ultrasound abdomen complete with elastography 01/23/2022. TECHNIQUE: Real-time imaging of the abdominal viscera. FINDINGS: PANCREAS: Normal body, the head and tail are obscured by bowel gas. ABDOMINAL AORTA: The proximal, mid, and distal segments are normal in caliber. INFERIOR VENA CAVA: Visualized portions are normal. LIVER: The liver is normal in size. The liver contour is normal. There is diffuse increased liver parenchymal echogenicity, consistent with hepatic steatosis. No focal hepatic lesion. There is no intrahepatic biliary duct dilatation seen. GALLBLADDER: Normal. The gallbladder is physiologically distended without evidence of stones, sludge, polyps, wall thickening or pericholecystic fluid. COMMON BILE DUCT: Normal in caliber measuring 0.6 cm in diameter. RIGHT KIDNEY: No hydronephrosis or renal calculi. The kidney measures 11.7 cm in maximum dimension. There are 2 cysts, the largest is in the mid kidney, measures 1.1 x 1.0 x 0.8 cm. No imaging follow-up is recommended. LEFT KIDNEY: No hydronephrosis or renal calculi. The kidney measures 11.8 cm in maximum dimension. There are 2 cysts, the largest is a 4.2 x 3.7 x 4.0 cm exophytic cyst in the mid to lower pole. No imaging follow-up is recommended. SPLEEN: The spleen measures 12.4 cm in maximum dimension. FREE FLUID: None. US/US abdomen complete IMPRESSION: 1. Hepatic steatosis. 2. Limited views of the pancreas.
== END 2023-05-13 08:39 | disposition home or self-care (01) ==
LOC: HO.US 08:38
PROVIDERS: PCP Internal Medicine Geriatric Medicine; Visit Provider Internal Medicine
DX: K74.60 Unspecified cirrhosis of liver (principal)
CPT/HCPCS: 76700

== ENCOUNTER 2023-08-31 11:09 | Outpatient (REF) | payer OTHER, SELFPAY ==
[2023-08-31 13:53] LABS: Anion Gap 12 (12-20); Blood Urea Nitrogen 15 mg/dL (9-16); Carbon Dioxide 28 mmol/L (22-29); Chloride 104 mmol/L (96-108); Estimated Glomerular Filt Rate > 60; Glucose Random 174 mg/dL (60-115); Potassium 5.1 mmol/L (3.3-5.1); Sodium 139 mmol/L (135-145)
== END 2023-08-31 11:10 | disposition home or self-care (01) ==
LOC: HO.HHCL 11:09
PROVIDERS: Visit Provider Nurse Practitioner Primary Care
DX: E87.5 Hyperkalemia (principal)
CPT/HCPCS: 36415; 80048

== ENCOUNTER 2023-11-11 08:22 | Outpatient (REF) | payer OTHER, SELFPAY ==
--- NOTE | ~2023-11-11 | US_ITS ---
EXAMINATION: US ABDOMEN LIMITED CLINICAL INFORMATION: Unspecified cirrhosis of the liver. COMPARISON: Ultrasound abdomen 05/13/2023 and 11/23/2022. CT abdomen and pelvis 12/03/2022. TECHNIQUE: Real-time imaging of the right upper quadrant abdominal viscera. Technically difficult study secondary to body habitus. FINDINGS: PANCREAS: Normal. LIVER: Imaging limited. The liver is normal in size. The liver contour is normal. There is diffuse increased liver parenchymal echogenicity. No focal hepatic lesion. There is no intrahepatic biliary duct dilatation seen. GALLBLADDER: Normal. The gallbladder is physiologically distended without evidence of stones, sludge, polyps, wall thickening or pericholecystic fluid. COMMON BILE DUCT: Normal in caliber measuring 0.9 cm in diameter. RIGHT KIDNEY: No hydronephrosis or renal calculi. The kidney measures 9.8 cm in maximum dimension. At the interpolar aspect, 1.2 cm and 1.1 cm benign, simple cysts are seen. At the lower pole, a 1.0 cm T9, simple cyst is seen. These require no imaging follow-up. FREE FLUID: None. US/US abdomen limited IMPRESSION: 1. There is generalized increase in hepatic echotexture, consistent with fatty infiltration or hepatocellular disease. Please correlate clinically. The provided history of cirrhosis is noted. No focal hepatic mass or intrahepatic biliary dilatation is seen. 2. There is dilatation of the common bile duct to 9 mm, without pancreatic mass or choledocholithiasis noted. If clinically indicated, this can be further evaluated with abdominal MRI/MRCP or CT. Electronically signed by: Gomez Liriano MD 11/12/2023 10:28 PM EDT
== END 2023-11-11 08:23 | disposition home or self-care (01) ==
LOC: HO.US 08:22
PROVIDERS: PCP Internal Medicine Geriatric Medicine; Visit Provider Internal Medicine
DX: K74.60 Unspecified cirrhosis of liver (principal)
CPT/HCPCS: 76705

== ENCOUNTER 2023-12-16 08:34 | Outpatient (REF) | payer OTHER, SELFPAY ==
[2023-12-16 11:39] LABS: Hematocrit 32.2 % (42.0-52.0); Hemoglobin 9.8 g/dl (14.0-18.0); Mean Corpuscular HGB Conc 30.4 g/dl (31.0-36.0); Mean Corpuscular Hemoglobin 23.8 pg (27.0-33.0); Mean Corpuscular Volume 78.2 fL (80.0-98.0); Mean Platelet Volume 10.4 fL (9.4-12.4); Platelet Count 228 X10*3/uL (160-400); Red Blood Count 4.12 X10*6/uL (4.60-5.80); Red Cell Distribution Width 19.9 % (11.0-16.0)
[2023-12-16 11:41] LABS: Prothrombin Time 11.7 SEC (10.9-12.4)
[2023-12-16 12:09] LABS: Alanine Aminotransferase 14 U/L (0-40); Albumin Level 3.8 g/dL (3.5-5.0); Alkaline Phosphatase 59 U/L (39-117); Anion Gap 13 (12-20); Aspartate Amino Transferase 22 U/L (5-37); Bilirubin Total 0.7 mg/dL (0.0-1.0); Blood Urea Nitrogen 27 mg/dL (9-16); Carbon Dioxide 26 mmol/L (22-29); Chloride 109 mmol/L (96-108); Estimated Glomerular Filt Rate 59; Gamma Glutamyl Transpeptidase 20 U/L (11-51); Glucose Random 153 mg/dL (60-115); Potassium 5.5 mmol/L (3.3-5.1); Sodium 142 mmol/L (135-145); Total Protein 7.6 g/dL (6.5-8.0)
[2023-12-16 12:16] LABS: Alanine Aminotransferase 14 U/L (0-40); Albumin Level 3.8 g/dL (3.5-5.0); Alkaline Phosphatase 58 U/L (39-117); Anion Gap 12 (12-20); Aspartate Amino Transferase 23 U/L (5-37); Bilirubin Total 0.7 mg/dL (0.0-1.0); Blood Urea Nitrogen 26 mg/dL (9-16); Carbon Dioxide 26 mmol/L (22-29); Chloride 109 mmol/L (96-108); Cholesterol 117 mg/dL (<200); Estimated Glomerular Filt Rate > 60; Glucose Random 151 mg/dL (60-115); HDL Cholesterol 33 mg/dL (>40); LDL Cholesterol Calculated 65 mg/dL (<100); Potassium 5.1 mmol/L (3.3-5.1); Sodium 142 mmol/L (135-145); Total Protein 7.6 g/dL (6.5-8.0); Triglycerides 99 mg/dL (<150)
[2023-12-16 12:26] LABS: Vitamin B12 306 pg/mL (200-900)
== END 2023-12-16 08:35 | disposition home or self-care (01) ==
LOC: HO.HHCL 08:34
PROVIDERS: Internal Medicine; Visit Provider Internal Medicine Geriatric Medicine
DX: E78.5 Hyperlipidemia, unspecified (principal); E11.65 Type 2 diabetes mellitus with hyperglycemia; K83.8 Other specified diseases of biliary tract
CPT/HCPCS: 36415; 80053; 80061; 82607; 82977; 85027; 85610

== ENCOUNTER 2024-05-29 08:50 | Outpatient (AMB) | payer OTHER, SELFPAY ==
--- NOTE | 2024-05-29 09:14 | A.OFFVIS_ITS ---
Vital Signs 05/29/24 09:18 Height 5 ft 6 in Weight 202 lb 13.204 oz BMI 32.7 BP 103/56 L Blood Pressure Location Lt brachial Position Sitting Pulse 50 Intake Visit Reasons: Cirrhosis f/u Intake Note: Rashid presents in the office as a follow up for cirrhosis. CC: States that they are concerned of the ball in his epigastric region. states that she wants to be sent to [facility] for more testing because she feels like nothing is being done. Retail Sales Merchandiser Required: No Allergies hydrocodone [Vicodin] Allergy (Intermediate, Verified 05/29/24 09:18) Rash HPI Comments Details: This is a 76-year-old gentleman with past medical history of hypertension, type 2 diabetes, obesity, coronary artery disease, remote history of alcohol use disorder, who was referred to the gastroenterology office for newly diagnosed cirrhosis. Patient is accompanied by his , who also helped interpret for him. Initial note 01/06/22: Per the notes received from primary care provider's office, he was seen at [facility] earlier in November for abdominal pain. Workup included CT scan of the abdomen that showed cirrhotic appearing liver. Of note, his lipase was also elevated at 663. CT abdomen and pelvis 11/21/2021: Scarring in the lower lobes with cystic lucencies similar to prior exam. Mild cardiomegaly. Liver demonstrates a nodular contour consistent with cirrhosis. Patient reports no gastrointestinal complaints to include abdominal pain, nausea, vomiting, changes in appetite, swelling in legs, new rash, shortness of breath, confusion. His only complaint is a bulge that appears in his abdomen whenever he is sitting up. He reports history of heavy alcohol use, but has been sober for 17 years. Also quit smoking. Does not report any history of IV drug use. No family history of liver disease to include liver cancer. Also does not report any history of iron overload, early COPD/pulmonary disease, early neuropsychiatric illness in the family. Recent endoscopy: EGD/colonoscopy 2019: EGD with H pylori gastritis. Patient does not recall getting treated. Colonoscopy was technically challenging and completed with position change and applying pressure. Good prep. 1.5 cm tubular adenoma in the transverse colon. US elastography 01/2022: No focal mass/lesion in the liver. Labs 01/06/22: Peth negative. Normal plt count. Not immune to HBV. EGD/colo 03/05/22 Excellent prep to the T.I. 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 Duodenal mucosa within normal limits; preserved villous architecture and no increased intraepithelial lymphocytes seen.? B.? Stomach, random, biopsy:? Gastric antral mucosa with moderate chronic active gastritis and numerous Helicobacter pylori organisms identified along with intestinal metaplasia; negative for dysplasia.? 03/20/22 Reports no gastrointestinal complaints. Denies any abdominal pain, nausea, vomiting, changes in appetite, increased abdominal distension. Continues to remain abstinent from alcohol. His recalls that he may have started hepatitis-B vaccination series, but does not know when he is due for next dose. She will check with his primary care provider. EGD and colonoscopy results discussed. Including results of H pylori, with gastric metaplasia. No family history of stomach cancer. 11/18/22: Coming in after Mar for follow up. Reports taking Abx however unsure if took them properly as reports still has some of the pills left. reports pt has frequent coughing and difficulty swallowing michael liquids - was not present at the time of previous EGD but has been progressing since earlier this year. No change in appetite, no weight loss. She is also worried about a lump that forms in his abdomen on sitting up. In terms of liver cirrhosis, no abd distention, swelling, shortness of breath or rash reported. Pt was not aware of US that was ordered for him earlier this year. Also due for surveillance EGD later this year. 12/30/22: Reviewed H Pylori breath test - eradicated. Pt continues to report lump forming in the abdomen and remains worried about a hernia. Reassured that based on CT findings no ventral hernia and that this is likely diastasis. Otherwise no other GI issues to include abd pain, N,V, changes in BMs. 05/29/24: Pt seen in office after almost 18 months. Lost to follow up. Had mutiple admission at [facility] last year Feb 2024 for covid, complicated by pericarditis and pericardial effusion, Afib. Currently following with Cardiology. Pericardial effusion better per their documentation. Pt remains on high dose ibuprofen and colchicine as well as eliquis. In terms of cirrhosis, pt interestingly had very little recollection of this diagnosis. Most of the visit was spent reviewing this in detail. brings up altered sleep habits > 6 months. Sleeps very little during the night and sleeps during the day. does not report any mood or memory issues. US Abd nov 2023: 1. There is generalized increase in hepatic echotexture, consistent with fatty infiltration or hepatocellular disease. Please correlate clinically. The provided history of cirrhosis is noted. No focal hepatic mass or intrahepatic biliary dilatation is seen. 2. There is dilatation of the common bile duct to 9 mm, without pancreatic mass or choledocholithiasis noted. If clinically indicated, this can be further evaluated with abdominal MRI/MRCP or CT. CT abd/pel Feb 2024 ([facility]) Gallbladder: No CT evidence of gallbladder pathology. Bile ducts: No biliary ductal dilation. Spleen: Normal in size. Pancreas: No suspicious lesion or ductal dilatation. Stomach, small bowel, and large bowel: Normal caliber stomach and bowel loops. No evidence of obstruction. Colonic diverticulosis without evidence of acute diverticulitis. Appendix: Normal appendix. [facility] Medical History Chronic renal insufficiency Sleep apnea CVA (cerebral vascular accident) BPH (benign prostatic hyperplasia) Depression Alcohol use disorder Cirrhosis Elevated cholesterol Chronic prescription opiate use Obesity Type 2 diabetes Coronary artery disease Hypertension Surgical History Hx of transurethral resection of prostate History of esophagogastroduodenoscopy (EGD) Hx of colonoscopy Social History Household Members: Spouse Housing: House Are you a primary special needs child caregiver to a significant other at home: No Do you presently have visiting nurse or other home services: Yes Patient Tobacco Use Status: Former Tobacco user Tobacco use type: Cigarette Review of Systems Const All systems reviewed & are unremarkable except as noted in HPI and below Physical Exam Vital Signs: Last Vital Signs Pulse 50 05/29/24 09:18 BP 103/56 L 05/29/24 09:18 BMI result Body Mass Index 32.7 Gen Appear: NAD, well nourished HEENT: No scleral icterus, no bitemporal wasting noted Chest: CTA Abd: soft, nontender, nondistended, no shifting dullness to percussion, bowel sounds active , 4 finger diastasis recti Ext: no pitting edema Neuro: A/Ox3, no asterixis Derm: Spider angioma on chest noted Assessment & Plan Assessment & Plan (1) Cirrhosis: Code(s): K74.60 - Unspecified cirrhosis of liver Category: Medical Plan: Compensated cirrhosis MELD-Na 8 Child Class A Reviewed in detail that the likely etiology of his cirrhosis was previous background of alcohol use and more recently metabolic associated fatty liver disease. Patient and were educated on natural history and evolution of cirrhosis, and risk factors for progression of liver disease. Unclear if sleep changes due to post hospitalization mild delirium vs covert HE. Will trial lactulose. 1. No evidence of ascites based on exam and history. 2. Question of covert HE as outlined above. Trial of lactulose 30 ml BID/TID x 7 days. If sx improve, this should be continued. 3. Variceal screening: Small varices and PHG 02/2023. Repeat due 02/2025. 4. HCC screening: US Abd due. Considered MRI due to dilated bile ducts noted on prev US however recent contrasted CT at [facility] does not show any ductal dilation. 5. Nutrition: Advised to take 2g Na diet. No protein restriction advised. Add a night time snack. 6. Ideally, NSAIDs to be avoided or to be taken for minimum duration. Will send msg to Cardiology office to clarify duration of high dose ibuprofen. Tylenol ok to take for pain control as needed up to 2g/day. 7. Well compensated cirrhosis with low MELD, no indication for transplant referral currently. (2) Dilated bile duct: Code(s): K83.8 - Other specified diseases of biliary tract Category: Medical Plan: Noted incidentally on Nov 2023 US Abd. No riddhi dil noted on contrasted CT done in [facility]. Plan: - Check LFTs - US Abd - if has persistent riddhi dil and/or elevated LFTs, will proceed with MRI/MRCP (3) Pericarditis: Code(s): I31.9 - Disease of pericardium, unspecified Category: Medical Plan: Post covid. Care at [facility] Cardiology. Will clarify duration of ibuprofen as outlined above. In the meantime, pt to continue omeprazole 20 as long as hes on ibuprofen + ASA as per AHA guidelines. (4) Personal history of colonic polyps: Code(s): Z86.010 - Personal history of colon polyps Category: Medical Plan: Has history of 1.5 cm tubular adenoma in 2019. No polyps noted on 02/2022 colo (excellent prep). Repeat colo will be due in 5 years (02/2027) due to personal hx of advanced adenoma. Plan Follow up 2 months Orders: Orders Complete Blood Count no Diff Today K74.60 - Unspecified cirrhosis of liver Comprehensive Met. Panel Today K74.60 - Unspecified cirrhosis of liver Prothrombin Time INR Today K74.60 - Unspecified cirrhosis of liver US abdomen complete Today K74.60 - Unspecified cirrhosis of liver, K83.8 - Other specified diseases of biliary tract Medications: New lactulose 20 grams (30 mL) PO BID 30 days 1,800 mL 0RF Changed From omeprazole 20 mg PO BID 14 days 28 caps 0RF To omeprazole 20 mg PO DAILY 90 days 90 caps 0RF Coding Level of Care Code Est Pt Level 5 (43684) Complex EM visit Add On G2211 Diagnoses Cirrhosis K74.60 Dilated bile duct K83.8 Pericarditis I31.9 Personal history of colonic polyps Z86.010
[2024-05-29 09:18] VITALS: BP 103/56; PULSE 50; BMI 32.7
== END 2024-05-29 09:53 | disposition home or self-care (01) ==
LOC: HO.HGI 08:50
PROVIDERS: PCP Internal Medicine Geriatric Medicine; Visit Provider Internal Medicine
DX: K74.60 Unspecified cirrhosis of liver (principal); K83.8 Other specified diseases of biliary tract; I31.9 Disease of pericardium, unspecified; Z86.0100 Personal history of colon polyps, unspecified
CPT/HCPCS: 99214; G2211

== ENCOUNTER → 2024-05-29 08:50 | Outpatient (BNVA) | payer OTHER, SELFPAY | PROVIDERS: PCP Internal Medicine Geriatric Medicine; Visit Provider Internal Medicine | DX: K74.60 Unspecified cirrhosis of liver (principal); K83.8 Other specified diseases of biliary tract; I31.9 Disease of pericardium, unspecified; Z86.0100 Personal history of colon polyps, unspecified | CPT/HCPCS: 99212 ==

== ENCOUNTER 2024-07-04 08:30 | Outpatient (REF) | payer OTHER, SELFPAY ==
--- NOTE | ~2024-07-04 | US_ITS ---
EXAMINATION: US ABDOMEN HISTORY: K74.60 - Unspecified cirrhosis of liver TECHNIQUE: Real-time grayscale ultrasound imaging of the abdomen was performed and images were reviewed. COMPARISON: Comparison is made with the prior examination dated 11/11/2023. FINDINGS: Liver: The right lobe of the liver measures 13.3 cm in size. The left lobe of the liver measures 9.6 cm in size. The liver demonstrates coarsened echotexture. No focal mass or intrahepatic biliary ductal dilatation is identified. There is normal hepatopedal flow in the portal vein. Gallbladder and biliary tree: The gallbladder is unremarkable, without evidence of calculi, wall thickening, or pericholecystic fluid. There is no sonographic Quinones sign. The common bile duct is normal in caliber measuring 5 mm. Kidneys: The right kidney measures 10.9 cm in length and demonstrates multiple cysts, the largest of which measures 10 mm in size. The left kidney measures 12.6 cm in length and demonstrates multiple cysts, the largest is at the mid to lower pole measuring 4.6 x 3.8 x 4.3 cm. The kidneys are otherwise unremarkable, without evidence of solid masses, hydronephrosis, or calculi. Pancreas: There is limited visualization of the pancreas. Spleen: The spleen is normal in size and contour, measuring 11.4 cm in length. Abdominal aorta and inferior vena cava: The visualized portions of the abdominal aorta and inferior vena cava are normal in caliber. There is no free fluid in the abdomen. US/US abdomen complete IMPRESSION: 1. Coarsened hepatic echotexture which is a nonspecific finding. No masses are identified. 2. Bilateral renal cysts as described. Electronically signed by: Jose Luis Rivera MD 07/05/2024 02:00 PM EDT
--- OUTSIDE RECORDS SUMMARY | 2024-07-04 08:50 | XMS_ITS | Encounter Summary ---
Author Organization [employer] Address [address] [facility] [address] [place] [address] Care Team Providers Care Wash Tank Tender Name Role Phone Name, Iain WHITESIDE Primary Care Provider [phone] Ysabel Rivas PharmD Unavailable [phone] Reason for Visit * Reason Comments Med Refill Encounter Details Date Type Department Care Team (Late st Contact Info) Description 01/14/[address] [facility] [address] [place] [address] Name, MD Iain [address] [place], [place] [phone] Chronic pain syndrome Social History Tobacco Use Types Packs/Day Years Used Date Smoking Tobacco: Never Smokeless Tobacco: Never Alcohol Use Standard Drinks/Week Comments Never 0 (1 standard drink = 0.6 oz pur e alcohol) Depression Answer Date Recorded Patient Health Questionnaire-9 Score 0 08/28/2022 Housing Stability Answer Date Recorded What is your housing situation today? I have eula rutherford 12/30/[address] you li ve. Do you have problems with any of the following? None of the above 12/30/2022 Food Insecurity Answer Date Recorded Within the past 12 months, y ou worried that your food would run out before you got money to buy more: Never True 12/30/2022 Within the past 12 months,th e food you bought just didn't last and you didn't have enough money to get more: Never True Transportation Answer Date Recorded In the past 12 months, has l ack of transportation kept you from medical appts, meetings, work or from getting things needed for daily living? No 12/30/2022 Utilities Answer Date Recorded In the past 12 months, has t he electric, gas, oil or water company threatened to shut off services in your home? No 12/30/2022 Depression Answer Date Recorded Patient Health Questionnaire-2 Score 0 08/28/2022 Sex and Gender Information Value Date Recorded Sex Assigned at Male 01/05/2022 10:25 AM EDT Legal Sex Male 10:25 AM EDT Gender Identity Male 01/05/2022 10:25 AM EDT Sexual Orientation Straight 01/05/2022 10 :25 AM EDT documented as of this encounter Plan of Treatment Upcoming Encounters Date Type Department Care Team (Late st Contact Info) Description 07/10/2024 9:30 AM EDT Medication Management [facility] [address] [place] [phone] Ysabel Rivas PharmD [address] [place] [address] 09/01/2024 9:00 AM EDT Telemedicine [address] [address] Milena Barnes RN 10/13/2024 10:15 AM EDT Office Visit [facility] [address] [place] [phone] Name, MD Iain [address] [place] [address] documented as of this encounter Visit Diagnoses Diagnosis Chronic pain syndrome documented in this encounter Additional Health Concerns Assessment Noted Time PHQ-9 Depression Total Score: 0 08/29/19 23 9:29 AM EDT documented as of this encounter Care Teams Wash Tank Tender Relationship Specialty Start Date End Date Name, MD Iain [address] [place] [address] PCP - General Family Medicine 04/15/15 Ysabel Rivas PharmD [address] [place] [address] Pharmacist Internal Medicine 10/04/23 [facility] 02/23/24 documented as of this encounter
--- OUTSIDE RECORDS SUMMARY | 2024-07-04 08:51 | XMS_ITS | Encounter Summary ---
Author Organization [employer] Address [address] [facility] 7t [place] [address] Care Team Providers Care Packer Fuser Name Role Phone Name, Iain WHITESIDE Primary Care Provider [phone] Ysabel Rivas PharmD Unavailable [phone] Reason for Visit * Reason Onset Date Comments Hospital Follow-up 08/13/2023 Encounter Details Date Type Department Care Team ([facility] st Contact Info) Description 08/13/2023 Telephone [facility] [address] [place] [address] Name, MD Iain [address] [place], [place] [phone] Hospital Follow-up Social History Tobacco Use Types Packs/Day Years [...] AM EDT documented as of this encounter Miscellaneous Notes * Telephone Encounter - Kal Obregon - 08/13/2023 9:14 AM EDT Tc from November with [facility] requesting a HDF appt. Hospital: [facility] Date of admission: 08/09 Discharge date: 08/11 Diagnosed: Hyperkalemia documented in this encounter Plan of Treatment Upcoming Encounters Date Type Department Care Team (Late st Contact Info) Description 07/10/2024 9:30 AM EDT Medication Management [address] [address] Ysabel Rivas, EricD [address] [place] [address] 09/01/2024 9:00 AM EDT Telemedicine [address] [address] Milena Barnes RN 10/13/2024 10:15 AM EDT Office Visit [facility] [address] [place] [phone] Iain Moura MD [address] [place] [address] documented as of this encounter Visit Diagnoses Not on filedocumented in this encounter Additional Health Concerns Assessment Noted Time PHQ-9 Depression Total Score: 0 08/29/19 9:29 AM EDT documented as of this encounter Care Teams Packer Fuser Relationship Specialty Start Date End Date Iain Moura MD [address] [place] [address], [place] [address] PCP - General Family Medicine 04/15/15 Ysabel Rivas PharmD [address] [place] [address] Pharmacist Internal Medicine 10/04/23 [facility] 02/23/24 documented as of this encounter
--- OUTSIDE RECORDS SUMMARY | 2024-07-04 08:51 | XMS_ITS | Encounter Summary ---
Author Organization [employer] Address [address] [facility] 7t [place] [address] Care Team Providers Care Sign Painter Helper Name Role Phone Name, Iain WHITESIDE Primary Care Provider [phone] Ysabel Rivas PharmD Unavailable [phone] Reason for Visit * Reason Comments Med Refill Encounter Details Date Type Department Care Team (Late st Contact Info) Description 07/06/2023 Refill [facility] [address] [place] [address] Name, MD Iain [address] [place], [place] [phone] Chronic pain syndrome Social History Tobacco Use [...] Description 07/10/2024 9:30 AM EDT Medication Management [facility] [address] [place] [address] Ysabel Rivas PharmD [address] [place] [address] 09/01/2024 9:00 AM EDT Telemedicine [address] [address] Milena Barnes RN 10/13/2024 10:15 AM EDT Office Visit [facility] [address] [place] [phone] Name, MD Iain [address] [place] [address] documented as of this encounter Visit Diagnoses Diagnosis Chronic pain syndrome documented in this encounter Additional Health Concerns Assessment Noted Time PHQ-9 Depression Total Score: 0 08/29/19 23 9:29 AM EDT documented as of this encounter Care Teams Sign Painter Helper Relationship Specialty Start Date End Date Name, MD Iain [address] [place] [address] PCP - General Family Medicine 04/15/15 Ysabel Rivas PharmD [address] [place] [phone] Pharmacist Internal Medicine 10/04/23 [facility] 02/23/24 documented as of this encounter
--- OUTSIDE RECORDS SUMMARY | 2024-07-04 08:51 | XMS_ITS | Encounter Summary ---
Author Organization [employer] [facility] Address [address] [place] [address] 7t [place] [address] Care Team Providers Care Low Voltage Technician Name Role Phone Name, Iain WHITESIDE Primary Care Provider [phone] Ysabel Rivas PharmD Unavailable [phone] Reason for Visit * Reason Comments Med Refill Encounter Details Date Type Department Care Team (Late Contact Info) Description 09/04/2022 Refill [facility] [address] [place] [address] [phone] Name, MD Iain [address] [place] [address] [phone] Chronic pain syndrome Social History Tobacco Use Types Packs/Day Years Used Date Smoking Tobacco: Never Smokeless Tobacco: Never Alcohol Use Standard Drinks/Week Comments Never 0 (1 standard drink = 0.6 oz pur e alcohol) Depression Answer Date Recorded Patient Health Questionnaire-9 Score 0 08/28/2022 Depression Answer Date Recorded Patient Health Questionnaire-2 Score 0 08/28/2022 Sex and Gender Information Value Date Recorded Sex Assigned at Male 01/05/2022 10:25 AM EDT Legal Sex Male 10:25 AM EDT Gender Identity Male 01/05/2022 10:25 AM EDT Sexual Orientation Straight 01/05/2022 10 :25 AM EDT COVID-19 Exposure Response Date Recorded In the last 10 days, have yo u been in contact with someone who was confirmed or suspected to have Coronavirus/COVID-19? No / Unsure 08/28/2022 8:49 AM EDT documented as of this encounter Plan of Treatment Upcoming Encounters Date Type Department Care Team (Late st Contact Info) Description 07/10/2024 9:30 AM EDT Medication Management [facility] [address] [place] [address] Ysabel Rivas PharmD [address] [facility] [place] [address] 09/01/2024 9:00 AM EDT Telemedicine [facility] [place] [address] Milena Barnes RN 10/13/2024 10:15 AM EDT Office Visit [facility] [place] [address] Name, MD Iain [facility] [place] [address] documented as of this encounter Visit Diagnoses Diagnosis Chronic pain syndrome documented in this encounter Additional Health Concerns Assessment Noted Time PHQ-9 Depression Total Score: 0 08/29/19 9:29 AM EDT documented as of this encounter Care Teams Low Voltage Technician Relationship Specialty Start Date End Date Name, MD Iain [facility] [place] [address] PCP - General Family Medicine 04/15/15 Ysabel Rivas PharmD [facility] [place] [address] Pharmacist Internal Medicine 10/04/23 [facility] 02/23/24 documented as of this encounter
--- OUTSIDE RECORDS SUMMARY | 2024-07-04 08:51 | XMS_ITS | Encounter Summary ---
Author Organization [employer] Address [address] [place] [address] 7t [place] [address] Care Team Providers Care Pool Attendant Name Role Phone Name, Iain WHITESIDE Primary Care Provider [phone] Ysabel Rivas PharmD Unavailable Encounter Details Date Type Department Care Team (Late st Contact Info) Description 03/11/2022 Orders Only [facility] [address] [place] [address] Joanie Tillman LPN Social History Tobacco Use Types Packs/Day Years Used Date Smoking Tobacco: Never Assessed Sex and Gender Information Value Date Recorded Sex Assigned at Male 01/05/2022 10:25 AM EDT Legal Sex Male 10:25 AM EDT Gender Identity Male 01/05/2022 10:25 AM EDT Sexual Orientation Straight 01/05/2022 10 :25 AM EDT documented as of this encounter Plan of Treatment Upcoming Encounters Date Type Department Care Team (Late st Contact Info) Description 07/10/2024 9:30 AM EDT Medication Management [address] [address] Ysabel Rivas, PharmD [address] [place] [address] 09/01/2024 9:00 AM EDT Telemedicine [address] [address] Milena Barnes, PAO 10/13/2024 10:15 AM EDT Office Visit [address] [address] Name, MD Iain [address] [place] [address] documented as of this encounter Visit Diagnoses Not on filedocumented in this encounter Care Teams Pool Attendant Relationship Specialty Start Date End Date Name, MD Iain [address] [place] [address] PCP - General Family Medicine 04/15/15 Ysabel Rivas, Toney [address] [place] [address] Pharmacist Internal Medicine 10/04/23 [facility] 02/23/24 documented as of this encounter
--- OUTSIDE RECORDS SUMMARY | 2024-07-04 08:51 | XMS_ITS | Clinical Summary ---
Author Organization [employer] Address [address] [place] [address] [address] [place] [address] Care Team Providers Care Manager Call Name Role Phone Name, Iain WHITESIDE Primary Care Provider [phone] PuiaYsabel PharmD Unavailable [phone] Allergies Active Allergy Reactions Criticality Noted Date Comments Bee Venom 04/10/2013 Hydrocodone-Acetaminophen Nausea And Vomiting 0 09/05/2009 Medications Ventolin HFA 108 (90 Base) MCG/ACT inhaler Inhale 2 puffs Every 4-6 hours as needed. 022 Active naloxone (Narcan) 4 mg/0.1 mL nasal spray ADMINISTER 1 SPRAY INTO ONE NOSTRIL.MAY REPEAT DOSE EVERY 2-3 MIN NEEDED IN ALTERNATING NOSTRILS Active loratadine (Claritin) 10 MG tablet TAKE 1 TABLET BY MOUTH EVERY MORNING 30 tablet 5 Active Blood Glucose Monitoring Suppl (FreeStyle Lite) w/Device kit USE DIRECTED 4 TIMES DAILY TO TEST BLOOD SUGAR Active lidocaine (Lidoderm) 5 % patchIndicatio ns:Neck pain Apply 1 patch topically Once per day. Remove & discard patch within 12 hours or as directed by . 30 patch 2 024 2024 Active glucose blood (FREESTYLE LITE) test stripIndicatio ns:Type 2 diabetes mellitus with other specified complication, without long-term current use of insulin ([facility]) TEST BLOOD SUGAR ONCE DAILY 100 strip 11 Active Continuous Glucose Greenhouse Specialist (FreeStyle Fran 2 [place]) deviceIndicati ons:Type 2 diabetes mellitus with hyperglycemia, unspecified whether ocean transportation intermediary insulin use (CMS/HCC),Hype rkalemia Scan sensor every 8 hours 1 each Active glucose blood (FreeStyle Precision Bob Test) test strip Use to test blood sugar 3 times daily 100 each 024 2024 Active TRUEplus Lancets 33G misc USE TO TEST BLOOD SUGAR 3 times DAILY 100 each Active Alcohol Swabs (B-D SINGLE USE SWABS REGULAR) padsIndication s:Type 2 diabetes mellitus with hyperglycemia, unspecified whether ocean transportation intermediary insulin use (CMS/HCC) Use as directed, up to 4 times daily. 100 each Active DULoxetine (Cymbalta) [address] capsule TAKE 1 CAPSULE BY MOUTH EVERY MORNING DO NOT BREAK, CRUSH, DISSOLVE OR CHEW 30 capsule Active Multiple Vitamin (Multivitamin) tablet TAKE 1 TABLET BY MOUTH EVERY MORNING 30 tablet 11 Active losartan (Cozaar) 50 MG tablet TAKE 1 TABLET BY MOUTH EVERY DAY AT NOON 90 tablet 1 Active Semaglutide, 2 MG/DOSE, (Ozempic, 2 MG/DOSE,) 8 MG/3ML solution pen-injectorIn dications:Type 2 diabetes mellitus with hyperglycemia, unspecified whether intermediate insulin use (CMS/[facility]) Inject 2 mg under the skin 1 (one) time per week. 3 mL 11 Active atorvastatin (Lipitor) 20 MG tabletIndicati ons:Type 2 diabetes mellitus with hyperglycemia, unspecified whether intermediate insulin use (CMS/HCC),Sylvia nary artery disease involving [place] coronary artery of [place] heart, unspecified whether angina present Take 1 tablet (20 mg) by mouth at bedtime. 90 tablet 3 Active olopatadine (Pataday) 0.2 % ophthalmic solution PLACE 1 DROP INTO THE AFFECTED EYE(S) EVERY MORNING 2.5 mL 2 Active glucose 4 g chewable tablet Chew 4 tablets (16 g) if needed for low blood sugar. (BG < 70 MG/DL). Repeat as needed & as directed. 40 tablet 5 Active Sure Comfort Pen [place] 31G X 5 MM misc Use as instructedUSE DIRECTED EVERY DAY WITH INSULIN 100 each 3 Active Eliquis 5 MG tablet Take 1 tablet by mouth 2 times daily. Active ferrous sulfate 325 (65 Fe) MG EC tablet Take 1 tablet by mouth Once per day. Active [facility] Glucose 4-6 GM-MG oral gel PLEASE SEE ATTACHED FOR DETAILED DIRECTIONS Active metoprolol succinate XL (Toprol-XL) 25 MG 24 hr tablet Take 1 tablet by mouth Once per day. Active omeprazole (PriLOSEC) [address] capsule Take 1 capsule by mouth before breakfast and before evening meal. Do not crush or chew. Active Continuous Glucose Sensor (FreeStyle Fran 2 Sensor) miscIndication s:Type 2 diabetes mellitus with hyperglycemia, unspecified whether ocean transportation intermediary insulin use (CMS/[facility]) Apply 1 sensor every 14 days 2 each 11 Active empagliflozin- metFORMIN ER (Synjardy XR) 10-1000 MG 24 hr tabletIndicati ons:Type 2 diabetes mellitus with hyperglycemia, unspecified whether ocean transportation intermediary insulin use ([facility]) Take 1 tablet by mouth with breakfast. 90 tablet 3 024 2024 Active insulin glargine (Lantus SoloStar) 100 UNIT/ML penIndications :Type 2 diabetes mellitus with hyperglycemia, unspecified whether ocean transportation intermediary insulin use ([facility]) Inject 12 Units under the skin at bedtime. 15 mL 5 Active tadalafil (Cialis) 20 MG tablet Take 1 tablet (20 mg) by mouth if needed each day for erectile dysfunction. 10 tablet Active traZODone (Desyrel) 50 MG tabletIndicati ons:Depression , unspecified depression type TAKE 1 TABLET BY MOUTH EVERY DAY AT BEDTIME 90 tablet 1 025 Active oxyCODONE-acet aminophen (Percocet) 5-325 MG tabletIndicati ons:Chronic pain syndrome Take 1 tablet by mouth every 12 (twelve) hours if needed for severe pain for up to 28 days. Do not start before May 03, 2024. 56 tablet 025 2024 Discontinued(R eorder (will not trigger notification to Pharmacy)) oxyCODONE-acet aminophen (Percocet) 5-325 MG tabletIndicati ons:Chronic pain syndrome Take 1 tablet by mouth every 12 (twelve) hours if needed for severe pain for up to 28 days. 56 tablet 025 2024 Active Problems Problem Noted Date Diagnosed Date Pericarditis 04/04/2024 Paroxysmal A-fib 04/04/2024 Class 1 obesity 02/28/2024 Disease due to severe acute respiratory syndrome coronavirus 2 (SARS-CoV-2) 02/22/2024 Overview (04/03/2024): Problem added by Discern Expert Gastrointestinal hemorrhage 08/25/2022 Perforation of tympanic membrane 08/25/2022 Headache 03/20/2022 Portal hypertensive gastropathy (CMS/HCC) 2022 AVM (arteriovenous malformation) of colon 2022 Cirrhosis of liver 12/12/2021 Overview (03/25/2023): EGD/colonoscopy 2019: EGD with H pylori gastritis. Patient does not recall getting treated. Colonoscopy was technically challenging and completed with position change and applying pressure. Good prep. 1.5 cm tubular adenoma in the transverse colon. US elastography 01/2022: No focal mass/lesion in the liver. Labs 01/06/22: Peth negative. Normal plt count. Not immune to HBV. EGD/colo 03/05/22 Excellent prep to the T.I. Esophageal candidiasis Flat varices Portal hypertensive gastropathy Antral gastritis (biopsy) Duodenitis (biopsy) AVMs in right colon (APC) External hemorrhoids Helicobacter pylori infection 11/05/2017 Overview (03/25/2023): Treated successfully 2019 by [facility] Tubular adenoma of colon 11/05/2017 Respiratory crackles 05/31/2017 Depressive disorder 06/18/2015 Onychomycosis 05/13/2015 BPH (benign prostatic hyperplasia) 07/04/2014 Obstructive sleep apnea 02/20/2014 CKD (chronic kidney disease) stage 3, GFR 30-59 ml/min 05/09/2013 Overview (08/25/2022): GFR 58 04/2013 Coronary artery disease 04/06/2013 Overview (03/25/2023): Patient had cardiac cath back in 2013 at [facility] showing minimal coronary irregularities Hemorrhoids 04/06/2013 Obesity 04/06/2013 Old TX (myocardial infarction) 04/06/2013 Type 2 diabetes mellitus 06/02/2011 Overview (08/25/2022): GFR 58 on 04/22/13. NS/ Cataracts out side eye exam 12/06/12 Dr. Walker ED urology consult 12/29/12 Kezai Eduardo PA-C. Hyperlipidemia 06/18/2010 COPD (chronic obstructive pulmonary disease) 07/2009 Back pain 06/10/2009 Asthma 05/01/2009 Hypertension 05/01/2009 Resolved Problems Problem Noted Date Diagnosed Date Resolved Date Diarrhea 08/25/2022 09/17/2022 Straining with stools 08/25/20222023 History of colonoscopy 03/11/202203/25 Iron deficiency anemia 08/08/201809/17 Cough 05/31/2017 03/25/2023 Malaise 05/31/2017 09/17/2022 Occult blood in stools 03/30/201709/17 Diabetes mellitus type 2, uncontrolled 06/18/2015 03/25/2023 Late effect of stroke 04/06/20132022 Overview (08/25/2022): history of stroke with residual left arm weakness Encounters Date Type Department Care Team Description 06/27/2024 9:15 AM EDT Office Visit [facility] [address] [place] [phone] Name, MD Iain Type 2 diabetes mellitus with hyperglycemia, unspecified whether ocean transportation intermediary insulin use ([facility]) (Primary Dx); Seborrheic keratoses; Chronic midline low back pain without sciatica 06/27/2024 Travel 06/21/2024 Telephone [facility] [address] [place] [address] Cleve PimentelelijahRUBY chart prep 06/05/2024 Refill [facility] [address] [place] [address] NameIain MD Chronic pain syndrome 06/01/2024 Telephone [facility] [address] [place] [phone] NameIain MD 05/15/2024 Telephone [facility] [address] [place] [phone] NameIain MD Call Back Request 05/02/2024 Refill [facility] [address] [place] [address] NameIain MD Chronic pain syndrome 04/20/2024 Refill [facility] [address] [place] [phone] NameIain MD Depression, unspecified depression type 04/06/2024 Telephone [facility] [address] [place] [phone] NameIain MD Durable Medical Equipment (Electric wheelchair) from Last 3 Months Immunizations Name Administration Dates Next Due Hep B, adult 11/03/2023,03/25/2023,01/19/2022 Influenza High-dose Quadriva lent Preservative Free 03/25/2023,12/07/2022,12/02/2021,11/27 Influenza injectable quadriv alent IIV4 with preservative 12/22/2016,12/11/2015 Influenza injectable quadriv alent preservative free 02/03/2021 Influenza, High Dose Seasona l, Preservative Free 12/01/2023,11/23/2018,12/07/2017 Influenza, IIV3, injectable 12/31/2011, 1,12/20/2009 Pfizer Covid-19 Vaccine 12+ 12/01/2023, 2,04/24/2020 Pfizer Covid-19 Vaccine 12+ rea-sucrose (Quiroga Cap) 07/02/2021 Pneumococcal Conjugate PCV 13 12/22/2016 Pneumococcal Conjugate PCV 20 09/02/2023 Pneumococcal Polysaccharide PPSV23 12/11/2015 RSV Bivalent 12/15/2023 Tdap 02/12/2016 Zoster, Recombinant 04/15/2021,02/03/2021 Social History Tobacco Use Types Packs/Day Years Used Date Smoking Tobacco: Never Passive Smoke Exposure: Never Smokeless Tobacco: Never Tobacco Cessation:Counseling Given: Not Answered Alcohol Use Standard Drinks/Week Comments Never 0 (1 standard drink = 0.6 oz pur e alcohol) Alcohol Answer Date Recorded Frequency of Alcohol Consumption Not on file 09/02/2023 Average Number of Drinks Not on file 024 Frequency of Binge Drinking Not on file 08/07 Score 0 09/02/2023 Depression Answer Date Recorded Patient Health Questionnaire-9 Score 0 09/02/2023 Patient Health Questionnaire-9 Score 0 09/02/2023 Last PHQ-9: Questionnaire Data Not on file 0 09/02/2023 Housing Stability Answer Date Recorded What is your housing situation today? I have eula rutherford 09/02/[address] you li ve. Do you have problems with any of the following? None of the above 09/02/2023 Food Insecurity Answer Date Recorded Within the past 12 months, y ou worried that your food would run out before you got money to buy more: Never True 09/02/2023 Within the past 12 months,th e food you bought just didn't last and you didn't have enough money to get more: Never True Transportation Answer Date Recorded In the past 12 months, has l ack of transportation kept you from medical appts, meetings, work or from getting things needed for daily living? No 09/02/2023 Utilities Answer Date Recorded In the past 12 months, has t he electric, gas, oil or water company threatened to shut off services in your home? No 09/02/2023 Depression Answer Date Recorded Patient Health Questionnaire-2 Score 0 09/02/2023 Internet Access Answer Date Recorded Internet Access Q1 No 11/08/2023 Internet Access Q2 I do not want or need it 04/2023 Sex and Gender Information Value Date Recorded Sex Assigned at Male 01/05/2022 10:25 AM EDT Legal Sex Male 10:25 AM EDT Gender Identity Male 01/05/2022 10:25 AM EDT Sexual Orientation Straight 01/05/2022 10 :25 AM EDT Last Filed Vital Signs Vital Sign Reading Time Taken Comments Blood Pressure 146/84 06/27/2024 9:14 AM EDT Pulse 90 06/27/2024 9:14 AM EDT Temperature 36.2 ??C (97.1 ??F) 06/27/2024 9:14 AM ED T Respiratory Rate 18 06/27/2024 9:14 AM EDT Oxygen Saturation 98% 06/27/2024 9:14 AM EDT Inhaled Oxygen Concentration - - Weight 93.7 kg (206 lb 9.6 oz) 06/27/2024 9:14 A M EDT Height 185.4 cm (6' 1 ) 04/04/2024 10:19 AM EST Body Mass Index 27.26 04/04/2024 10:19 AM EST Plan of Treatment Upcoming Encounters Date Type Department Care Team (Late st Contact Info) Description 07/10/2024 9:30 AM EDT Medication Management [address] [address] Ysabel Rivas PharmD [address] [place] [phone] 09/01/2024 9:00 AM EDT Telemedicine [address] [address] Milena Barnes, PAO 10/13/2024 10:15 AM EDT Office Visit [address] [address] Name, MD Iain [address] [place] [phone] Health Maintenance Due Date Last Done Comments Diabetes: Urine Protein Screening 03/26/2024 03/26/2023, 06/24/2021, 05/26/2021, Additional history exists Alcohol/Substance Use Screening 09/01/2024 09/02/2023 Depression Screening 09/01/2024 09/02/2023, 09/02/19 24 SDOH Screening 09/01/2024 09/02/2023 Diabetes: Hemoglobin A1C 09/04/202403/07/2 024, 12/01/2023, 09/02/2023, Additional history exists Diabetes: Foot Exam 11/30/2024 12/01/2023, 12/01/2023, 12/01/2023, Additional history exists Lipid Panel 12/15/2024 12/16/2023, 04/2022, 06/24/2021, Additional history exists Eye Exam 05/24/2025 05/25/2023 Tobacco Screening 06/27/2025 06/27/2024 DTaP/Tdap/Td Vaccines (2 - Td or Tdap) 02/11/2026 02/12/2016 Zoster Vaccines Completed 04/15/2021, 02/03/2021 Pneumococcal Vaccine: 50+ Years Completed 09/02/2023, 12/22/2016, 12/11/2015 Hepatitis B Vaccines Completed 11/03/2023, 03/25/2023, 01/19/2022 COVID-19 Vaccine Completed 12/01/2023, , 07/02/2021, Additional history exists Influenza Vaccine Completed 12/01/2023, , 12/07/2022, Additional history exists RSV Patients and Patients Aged 60 years or older Completed 12/15/2023 HIB Vaccines Aged Out No longer eligi ble based on patient's age to complete this topic HPV Vaccines Aged Out No longer eligi ble based on patient's age to complete this topic Hepatitis A Vaccines Discontinued IPV Vaccines Aged Out No longer eligi ble based on patient's age to complete this topic Meningococcal Vaccine Aged Out No cynthia ada eligible based on patient's age to complete this topic RSV under 20 months Aged Out No longe r eligible based on patient's age to complete this topic Rotavirus Vaccines Aged Out No longer eligible based on patient's age to complete this topic Goals Goal Patient Goal Type Associated Problems Recent Progress Patient-Stated? Author Hemoglobin A1c < 7.5 Result Component 6(03/07/2024 12:49 PM EST) No Ysabel Rivas PharmD Note: Per ADA higher A1c goal would be appropriate given age. Will target 7.5% (over <8.0%) given cardiac hx (CAD, hx of [place]) Record your blood sugar as directed Result Component No Ysabel Rivas, PharmDagoberto Note: Use CGM, ensuring sensor is scanned at least once every 8 hours to capture 24H data. Check BG manually, as directed. Procedures Procedure Name Priority Date/Time Associated Diagnosis Comments POCT GLUCOSE Routine 06/27/2024 9:16 AM EDT Type 2 diabetes mellitus with hyperglycemia, unspecified whether intermediate insulin use ([facility]) POCT GLYCATED HEMOGLOBIN, TOTAL Routine 03/07/2024 12:49 PM EST Type 2 diabetes mellitus with hyperglycemia, unspecified whether ocean transportation intermediary insulin use ([facility]) LIPID PANEL, STANDARD Routine 12/16/2023 8:40 AM EDT DIABETES EYE EXAM Routine 05/25/2023 ALBUMIN, RANDOM URINE W/CREATININE Routine 03/26/2023 9:53 AM EST Type 2 diabetes mellitus with other specified complication, without long-term current use of insulin ([facility]) from Last 3 Months or Most Recently Relevant to Health Maintenance Results * (ABNORMAL) POCT Glucose (06/27/2024 9:16 AM EDT) Glucose Blood, POC 246(A) 60 - 200 mg/dL QC Media Lot # [id number] Lot# Expiration Date [id number] Blood Capillary blood specimen / Unknown 06/27/2024 9:16 AM EDT us Iain Moura MD POINT OF CARE TEST ENTER/EDIT OR DERABLES Final Result * POCT HGB A1C (03/07/2024 12:49 PM EST) Hemoglobin A1C 6.0 4.0 - 6.0 % QC Media Lot # [id number] Blood 03/07/2024 12:4 9 PM EST us Iain Moura MD POINT OF CARE TEST ENTER/EDIT OR DERABLES Final Result * (ABNORMAL) Lipid Panel, Standard (12/16/2023 8:40 AM EDT) Triglycerides 99 <150 mg/dL [facility] Comment:Desirable Triglyceri de: less than 150 mg/dLBorderline High Triglyceride 150-199 mg/dLHigh Triglyceride: 200-499 mg/dLVery High Triglyceride: greater than or equal to 5OO mg/dL Cholesterol 117 <200 mg/dL [facility] Comment:Desirable Cholestero l: less than 200 mg/dLBorderline High Cholesterol: 200-239 mg/dLHigh Cholesterol: greater than 239 mg/dL LDL Cholesterol Calculated 65 <100 mg/dL [facility] Comment:Desirable LDL: less than 100 mg/dLNear Optimal/Above Optimal LDL: 110- 129 mg/dLBorderline High LDL: 130-159 mg/dLHigh LDL: 160-189 mg/dLVery High LDL: greater than or equal to 190 mg/dL HDL Cholesterol 33(L) >40 mg/dL [facility] Comment:Desirable HDL: great er than 40 mg/dL Note: This HDL assay may give artificially low results in patients with liver disease. 12/16/2023 8:40 AM EDT 12/16/2023 11:16 AM EDT us Iain Moura MD LAB BLOOD ORDERABLES Final Resul t [facility] [address] [place] [address] [phone] * Diabetes Eye Exam (05/25/2023) Eye Exam Normal Normal, BIRADS 0 , BIRADS 1 , BIRADS 2, BIRADS 3 , BIRADS 4+ us Iain Moura MD HEALTH MAINTENANCE Final Result * (ABNORMAL) Albumin, Random Urine W/Creatinine (03/26/2023 9:53 AM EST) Creatinine, Urine 295.56 mg/dL [facility] Microalbumin Urine 140.0 mg/L [facility] Microalbum Creatinine Ratio Ur 47.3(H) <30 ug/mg cr [facility] Comment:Albumin/Creatinine R atio Reference Ranges: Normal: < 30 ug/mg creatinine Microalbuminuria: 30 - 300 ug/mg creatinineClinical Albuminuria: > 300 ug/mg creatinine Urine (Urine, Random) 03/26/2023 9:53 AM EST 03/26/2023 11:15 AM EST us Iain Moura MD LAB URINE ORDERABLES Final Resul t [facility] [address] [place] [address] [phone] from Last 3 Months or Most Recently Relevant to Health Maintenance Insurance [facility] [employer] (O D-SNP) TK MATIAS [id number] Care Teams Manager Call Relationship Specialty Start Date End Date Name, MD Iain [address] [place] [phone] PCP - General Family Medicine 2/8/16 Ysabel Rivas, EricD [address] [place] [address] Pharmacist Internal Medicine 10/04/23 [employer] 02/23/24
--- OUTSIDE RECORDS SUMMARY | 2024-07-04 08:51 | XMS_ITS | Clinical Summary ---
Author Organization [facility], Address [address] [place] [address] [place] [address] Phone Care Team Providers Care Epic Ambulatory Specialists Name Role Phone Name, Iain WHITESIDE Primary Care Provider [phone] Allergies Active Allergy Reactions Criticality Noted Date Comments Bee Venom 05/12/2021 Hornet Venom 05/12/2021 Hydrocodone-Acetaminophen 05/12/2021 Wasp Venom Protein 05/12/2021 Medications albuterol HFA (PROVENTIL HFA;VENTOLIN HFA) 108 (90 Base) MCG/ACT inhaler Inhale 2 puffs every 6 (six) hours if needed for wheezing Active metFORMIN (GLUCOPHAGE) 1000 MG tablet Take 1,000 mg by mouth 2 (two) times a day with meals Active omeprazole (PriLOSEC) [address] capsule Take 20 mg by mouth 1 (one) time each day Do not crush or chew. Active ferrous sulfate 325 (65 Fe) MG tablet Take 325 mg by mouth 1 (one) time each day with breakfast Active co-enzyme Q-10 30 MG capsule Take 30 mg by mouth 1 (one) time each day Active metoprolol tartrate (LOPRESSOR) 50 MG tablet Take 50 mg by mouth 2 (two) times a day Active Dulaglutide (Trulicity) 0.75 MG/0.5ML solution pen-injector Inject under the skin Active lisinopril-hydr oCHLOROthiazide (PRINZIDE,ZESTO RETIC) 10-12.5 MG per tablet Take 1 tablet by mouth 1 (one) time each day Active aspirin (ST EDMUNDO) 81 MG EC tablet Take 81 mg by mouth 1 (one) time each day Active sildenafil (VIAGRA) 50 MG tablet Take 50 mg by mouth 1 (one) time each day if needed for erectile dysfunction Active atorvastatin (LIPITOR) 20 MG tablet Take 20 mg by mouth 1 (one) time each day Active oxyCODONE-aceta minophen (PERCOCET) 5-325 MG per tablet Take 1 tablet by mouth every 4 (four) hours if needed for moderate pain Active sertraline (ZOLOFT) 50 MG tablet Take 50 mg by mouth 1 (one) time each day Active Active Problems Problem Noted Date Diagnosed Date Stage 3a chronic kidney disease 11/14/2020 Type 2 diabetes mellitus 11/14/2020 Iron deficiency anemia 11/14/2020 Hypertension 11/14/2020 Resolved Problems Problem Noted Date Diagnosed Date Resolved Date Depressive disorder 11/14/2020 11/15/19 21 Social History Tobacco Use Types Packs/Day Years Used Date Smoking Tobacco: Never Assessed Sex and Gender Information Value Date Recorded Sex Assigned at Not on file Legal Sex Male 11:13 AM EDT Gender Identity Not on file Sexual Orientation Not on file Last Filed Vital Signs Vital Sign Reading Time Taken Comments Blood Pressure 118/56 11/15/2020 3:48 PM EDT Pulse - - Temperature - - Respiratory Rate - - Oxygen Saturation - - Inhaled Oxygen Concentration - - Weight - - Height - - Body Mass Index - - Plan of Treatment Health Maintenance Due Date Last Done Comments Pneumococcal Vaccine: 50+ Ye ars (1 of 2 - PCV) 05/11/1964 Diabetes: Ophthalmology Exam 11/14/2020 Diabetes: Pedal Pulse Checked 11/14/2020 Diabetes: Sensory Foot Exam 11/14/2020 Diabetes: Visual Foot Exam 11/14/2020 Diabetes: Hemoglobin A1C 02/14/2021 11/15/2020 Influenza Vaccine (Season Ended) 2024 Hepatitis B Vaccine Aged Out No longe r eligible based on patient's age to complete this topic Procedures Procedure Name Priority Date/Time Associated Diagnosis Comments HEMOGLOBIN A1C Routine 11/15/2020 3:57 PM EDT Stage 3a chronic kidney disease (HCC) from Last 3 Months or Most Recently Relevant to Health Maintenance Results * (ABNORMAL) Hemoglobin A1c (11/15/2020 3:57 PM EDT) Hemoglobin A1C 9.2(H) (4.0-5.6) % [facility] Comment: MONITORING: In known diabetic patients, hemoglobin A1c targets should be discussed with health care provider. DIAGNOSTIC USE: ??The [place] Diabetes Association (ADA) and the World Health Organization (WHO) recommend the use of HbA1c to diagnose diabetes using a threshold of 6.5%. Patients who have an HbA1c between 5.7% and 6.4% are considered at increased risk for developing diabetes in the future. CAUTION: Falsely low HbA1c results may be observed in patients with hemolytic anemia, homozygous forms of abnormal hemoglobin (e.g. SS, CC, SC), , recent blood loss or hemoglobin F greater than 7%. Fructosamine may be used as an alternate test in these cases. REFERENCE: ADA: Standards of Medical Care in Diabetes 2020, The Journal of Clinical and Applied Research and Education Volume 43, Supplement 1 Testing performed or reported by [facility] [employer], a Service of [facility], [address] [place] [address] Sujata Arreguin MD, Aerospace Assembler [facility]# [id number] Blood (Blood, Venous) 11/15/2020 3:57 PM EDT 11/15/2020 3:58 PM EDT us Yfn Ramirez MD LAB BLOOD ORDERABLES Final Re sult [facility] from Last 3 Months or Most Recently Relevant to Health Maintenance Insurance Care Teams Epic Ambulatory Specialists Relationship Specialty Start Date End Date Name, MD Iain [address] [place] [address] PCP - General Internal Medicine 09/23/20
--- OUTSIDE RECORDS SUMMARY | 2024-07-04 08:51 | XMS_ITS | Encounter Summary ---
Author Organization [employer] Address [address] [facility] 7t [place] [address] Care Team Providers Care Railway Signal Electrician Name Role Phone Name, Iain WHITESIDE Primary Care Provider [phone] sYabel Rivas PharmD Unavailable [phone] Encounter Details Date Type Department Care Team ([facility] st Contact Info) Description 06/04/2023 Telephone [facility] [address] [place] [address] Name, MD Iain [address] [place] [address] Social History Tobacco Use Types Packs/Day Years [...] Description 07/10/2024 9:30 AM EDT Medication Management [facility] [address] [place] [phone] Ysabel Rivas PharmD [address] [place] [address] 09/01/2024 9:00 AM EDT Telemedicine [address] [address] Milena Barnes RN 10/13/2024 10:15 AM EDT Office Visit [address] [address] Name, MD Iain [address] [place] [address] documented as of this encounter Visit Diagnoses Not on filedocumented in this encounter Additional Health Concerns Assessment Noted Time PHQ-9 Depression Total Score: 0 08/29/19 23 9:29 AM EDT documented as of this encounter Care Teams Railway Signal Electrician Relationship Specialty Start Date End Date Name, MD Iain [address] [place] [address] PCP - General Family Medicine 04/15/15 Ysabel Rivas PharmD [address] [place] [address] Pharmacist Internal Medicine 10/04/23 [facility] 02/23/24 documented as of this encounter
--- OUTSIDE RECORDS SUMMARY | 2024-07-04 08:51 | XMS_ITS | Encounter Summary ---
Author Organization [employer] Address [address] [facility] 7t [place] [address] Care Team Providers Care Public Records Officer Name Role Phone Name, Iain WHITESIDE Primary Care Provider [phone] Ysabel Rivas PharmD Unavailable [phone] Reason for Visit * Reason Comments Med Refill Encounter Details Date Type Department Care Team (Late st Contact Info) Description 02/13/2024 Refill [facility] [address] [place] [address] Name, MD Iain [address] [place], [place] [phone] Social History Tobacco Use Types Packs/Day Years [...] encounter Miscellaneous Notes * Telephone Encounter - Yamilka Srinivasan RN - 02/15/2024 11:20 AM EST TC placed to pt via BLS interpreting ([place] ID#[id number]). Spoke to pt spouse Katelyn regarding pt status following hospital visit. She informed me the pt is doing okay and would like to book a follow up with PCP. Follow up booked with PCP on 03/02 at 10:00 AM. documented in this encounter Plan of Treatment Upcoming Encounters Date Type Department Care Team (Late st Contact Info) Description 07/10/2024 9:30 AM EDT Medication Management [facility] [address] [place] [address] Ysabel Rivas, Toney [address] [place] [address] 09/01/2024 9:00 AM EDT Telemedicine [address] [address] Milena Barnes RN 10/13/2024 10:15 AM EDT Office Visit [facility] [place] [address] Name, MD Iain [facility] [place] [address] documented as of this encounter Goals Goal Patient Goal Type Associated Problems Recent Progress Patient-Stated? Author Hemoglobin A1c < 7.5 Result Component 6(03/07/2024 12:49 PM EST) No Ysabel Rivas PharmD Note: Per ADA higher A1c goal would be appropriate given age. Will target 7.5% (over <8.0%) given cardiac hx (CAD, hx of [place]) Record your blood sugar as directed Result Component No Ysabel Rivas, Toney Note: Use CGM, ensuring sensor is scanned at least once every 8 hours to capture 24H data. Check BG manually, as directed. documented as of this encounter Visit Diagnoses Not on filedocumented in this encounter Additional Health Concerns Assessment Noted Time PHQ-9 Depression Total Score: 0 09/02/19 24 9:09 AM EDT documented as of this encounter Care Teams Public Records Officer Relationship Specialty Start Date End Date Name, MD [facility] [place] [address] PCP - General Family Medicine 04/15/15 Ysabel Rivas, [place] [address] Pharmacist Internal Medicine 10/04/23 [facility] 02/23/24 documented as of this encounter
--- OUTSIDE RECORDS SUMMARY | 2024-07-04 08:51 | XMS_ITS | Encounter Summary ---
Author Organization [employer] [facility] Address [address] [place] [address] 7t [place] [address] Care Team Providers Care News Gathering Technician Name Role Phone Name, Iain WHITESIDE Primary Care Provider [phone] PuYsabel dalton PharmD Unavailable Reason for Visit * Reason Comments Med Refill Encounter Details Date Type Department Care Team (Late st Contact Info) Description 05/13/[address] [facility] MED[facility]INE [address] [place] [address] [phone] Name, MD Iain [address] [place] [phone] Coronary artery disease involving n[place] coronary artery of [place] heart, unspecified whether angina present (Primary Dx) Social History Tobacco Use Types Packs/Day Years Used Date Smoking Tobacco: Never Smokeless Tobacco: Never PHQ-2 Answer Date Recorded Patient Health Questionnaire-2 Score 0 03/20/2022 Sex and Gender Information Value Date Recorded Sex Assigned at Male 01/05/2022 10:25 AM EDT Legal Sex Male 10:25 AM EDT Gender Identity Male 01/05/2022 10:25 AM EDT Sexual Orientation Straight 01/05/2022 10 :25 AM EDT documented as of this encounter Plan of Treatment Upcoming Encounters Date Type Department Care Team (Late st Contact Info) Description 07/10/2024 9:30 AM EDT Medication Management [facility] [address] [place] [address] Puia, Ysabel, PharmD [address] [place] [address] 09/01/2024 9:[address] [facility] [address] [place] [address] Milena Barnes RN 10/13/2024 10:15 AM EDT Office Visit 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
--- OUTSIDE RECORDS SUMMARY | 2024-07-04 08:51 | XMS_ITS | Encounter Summary ---
Author Organization [employer] Address [address] [facility] 7t [place] [address] Care Team Providers Care Ict Sales Assistant Name Role Phone Name, Iain WHITESIDE Primary Care Provider [phone] Ysabel Rivas PharmD Unavailable [phone] Reason for Visit * Reason Onset Date Comments Durable Medical Equipment 04/06/2024 Electr ic wheelchair Encounter Details Date Type Department Care Team ([facility] st Contact Info) Description 04/06/2024 Telephone [facility] MED[facility] [address] [place], [place] [phone] Name, MD Iain [address] [place] [address] Durable Medical Equipment (Electric wheelchair) Social History Tobacco Use Types Packs/Day Years Used Date Smoking Tobacco: Never Passive Smoke Exposure: Never Smokeless Tobacco: Never Alcohol Use Standard [...] encounter Miscellaneous Notes * Telephone Encounter - Marion De La Paz - 06/29/2024 2:24 PM EDT Bottle House Cleaners Supervisor called pt and spoke with pt spouse/Katelyn to inform of OT/PT evaluation denial and pcp decision to not request another eval. Katelyn disagreed with determination that electric wheelchair is not medically necessary and verbalized dissatisfaction with [facility] therapist. Bottle House Cleaners Supervisor recommended pt call [facility] appeal. Katelyn verbalized understanding. * Telephone Encounter - Bambi Boyd - 06/21/2024 10:12 AM EDT Tc from pt spouse requesting a call back regarding status on wheel chair . Did inform last task butwas asked if pt can be re evaluated because it has already been couple months. Please call to clarify. * Telephone Encounter - Marion De La Paz - 04/06/2024 3:17 PM EST Rx for electric wheelchair and w/c eval faxed to [facility] 12/08/2023. Bottle House Cleaners Supervisor called [facility] who stated PAwas denied. Evaluation performed 12/17/2023 found that pt was able to ambulate with cane in apartment as well as in the community; pt also has TOUR COORDINATOR and transportation services available therefore an electric/power wheelchair was deemed not medically necessary at this time. * Telephone Encounter - Marion De La Paz - 04/06/2024 3:16 PM EST ----- Message from Iain Moura MD sent at 04/04/2024 10:53 AM EST ----- Can you find out what happened with the prescription for the electrical wheelchair I did for this patient documented in this encounter Plan of Treatment Upcoming Encounters Date Type Department Care Team (Late st Contact Info) Description 07/10/2024 9:30 AM EDT Medication Management [address] [address] Ysabel Rivas PharmD [address] [place] [address] 09/01/2024 9:00 AM EDT Telemedicine [address] [phone] Milena Barnes RN 10/13/2024 10:15 AM EDT Office Visit [address] [address] Martell, MD Iain [address] [place] [address] documented as of this encounter Goals Goal Patient Goal Type Associated Problems Recent Progress Patient-Stated? Author Hemoglobin A1c < 7.5 Result Component 6(03/07/2024 12:49 PM EST) No Ysabel Rivas PharmD Note: Per ADA higher A1c goal would be appropriate given age. Will target 7.5% (over <8.0%) given cardiac hx (CAD, hx of [place]) Record your blood sugar as directed Result Component No Ysabel Rivas PharmD Note: Use CGM, ensuring sensor is scanned at least once every 8 hours to capture 24H data. Check BG manually, as directed. documented as of this encounter Visit Diagnoses Not on filedocumented in this encounter Additional Health Concerns Assessment Noted Time PHQ-9 Depression Total Score: 0 09/02/19 24 9:09 AM EDT documented as of this encounter Care Teams Ict Sales Assistant Relationship Specialty Start Date End Date Name, MD Iain [address] [place] [address] PCP - General Family Medicine 04/15/15 Ysabel Rivas, Toney [address] [place] [address] Pharmacist Internal Medicine 10/04/23 [facility] 02/23/24 documented as of this encounter
--- OUTSIDE RECORDS SUMMARY | 2024-07-04 08:51 | XMS_ITS | Clinical Summary ---
Author Organization [employer] [facility] Address [address] [place] [address] Care Team Providers Care Shampoo Person Name Role Phone Name, Iain WHITESIDE Primary Care Provider [phone] Medical History Medical History Date Comments Asthma 05/01/2009 DX:Asthma HTN (hypertension) 05/01/2009 DX:HTN (hyper tension) Historical Medical DX 05/27/2009 DX:Glucose intolerance Type II or unspecified type diabetes mellitus with unspecified complication, not stated as uncontrolled DX:Type II or unspecified ty pe diabetes mellitus with unspecified complication, not stated as uncontrolled Bronchitis, not specified as acute or chronic DX:Bronchitis, not specified as acute or chronic Type 2 diabetes mellitus, co ntrolled, with renal complications ([facility] V24, [facility] V28) 05/09/2013 DX:Type 2 diabetes mellitus, controlled, with renal complications ([facility]); COMMENT: GFR 58 on 04/22/13. Family History Medical History Relation Name Comments Blindness Neg Hx Cataracts Neg Hx Glaucoma Neg Hx Macular degeneration Neg Hx Strabismus Neg Hx Relation Name Status Comments Father (Age 106) Healthy Mother (Age 98) Healthy Social History Tobacco Use Types Packs/Day Years Used Date Smoking Tobacco: Former Cigarettes Q uit: 04/24/2009 Smokeless Tobacco: Never Alcohol Use Standard Drinks/Week Comments No 0 (1 standard drink = 0.6 oz pur e alcohol) Sex and Gender Information Value Date Recorded Sex Assigned at Not on file Legal Sex Male 2:33 PM EST Gender Identity Not on file Sexual Orientation Not on file Obstetrics History Plan of Treatment Health Maintenance Due Date Last Done Comments Diabetes: Annual GFR (Glomerular Filtration Rate) 1944 Diabetes: Annual Foot Exam 1954 Diabetes: Annual Retina Eye Exam 1954 DTaP,Tdap,and Td Vaccines (1 - Tdap) 05/11/1963 Pneumococcal Vaccine: 50+ Years (1 of 2 - PCV) 05/11/1963 Zoster Vaccines (1 of 2) 1994 RSV Immunization Adult Patients (1 - 1-dose 75+ series) 05/11/2019 Cholesterol Screening (Lipid Panel) 02/04/2022 Depression Screening 02/04/2022 Falls Risk Assessment 02/04/2022 Social Influencers of Health Screening 02/04/2022 Diabetes: Annual Urine Albumin-Creatinine Ratio (uACR) 02/12/2022 Diabetes: Blood Sugar Contro l Test (HGBA1C) 02/12/2022 Hypertension/CHF/CAD Annual BMP Blood Test 02/12/2022 COVID-19 Vaccine ( - 2023-2 5 season) 2023 Influenza Vaccine (Season Ended) 2024 12/31/2011, 11/11/2010, 12/20/2009 HIB Vaccines Aged Out No longer eligi ble based on patient's age to complete this topic HPV Vaccines Aged Out No longer eligi ble based on patient's age to complete this topic Hepatitis A Vaccines Aged Out No long er eligible based on patient's age to complete this topic Hepatitis B Vaccines Aged Out No long er eligible based on patient's age to complete this topic IPV Vaccines Aged Out No longer eligi ble based on patient's age to complete this topic MMR Vaccines Aged Out No longer eligi ble based on patient's age to complete this topic Meningococcal ACWY Vaccine Aged Out N o longer eligible based on patient's age to complete this topic Meningococcal B Vaccine Aged Out No l onger eligible based on patient's age to complete this topic RSV Immunization Patients Under 20 months Aged Out No longer eligible b ased on patient's age to complete this topic Varicella Vaccines Aged Out No longer eligible based on patient's age to complete this topic Care Teams Shampoo Person Relationship Specialty Start Date End Date Name, MD Iain [address] [place] [address] PCP - General Internal Medicine 09/26/14
--- OUTSIDE RECORDS SUMMARY | 2024-07-04 08:51 | XMS_ITS | Encounter Summary ---
Author Organization [employer] Address [address] [facility] 7t [place] [address] Care Team Providers Care Lead Operator Name Role Phone Name, Iain WHITESIDE Primary Care Provider [phone] Ysabel Rivas PharmD Unavailable [phone] Reason for Visit * Reason Comments Med Refill Encounter Details Date Type Department Care Team (Late st Contact Info) Description 10/08/2023 Refill [facility] MED[facility]INE [address] [place] [address] Name, MD Iain [address] [place], [place] [phone] Chronic pain syndrome Social History Tobacco Use [...] Recorded Patient Health Questionnaire-2 Score 0 09/02/2023 Sex and Gender Information Value Date Recorded Sex Assigned at Male 01/05/2022 10:25 AM EDT Legal Sex Male 10:25 AM EDT Gender Identity Male 01/05/2022 10:25 AM EDT Sexual Orientation Straight 01/05/2022 10 :25 AM EDT documented as of this encounter Plan of Treatment Upcoming Encounters Date Type Department Care Team (Late st Contact Info) Description 07/10/2024 9:30 AM EDT Medication Management [address] [address] Ysabel Rivas, EricD [address] [place] [address] 09/01/2024 9:00 AM EDT Telemedicine [address] [address] Milena Barnes RN 10/13/2024 10:15 AM EDT Office Visit [address] [address] Name, MD Iain [address] [place] [phone] documented as of this encounter Goals Goal Patient Goal Type Associated Problems Recent Progress Patient-Stated? Author Hemoglobin A1c < 7.5 Result Component 6(03/07/2024 12:49 PM EST) No Ysabel Rivas PharmD Note: Per ADA higher A1c goal would be appropriate given age. Will target 7.5% (over <8.0%) given cardiac hx (CAD, hx of [place]) Record your blood sugar as directed Result [...] documented as of this encounter Care Teams Lead Operator Relationship Specialty Start Date End Date Name, MD Iain [address] [place] [address] PCP - General Family Medicine 04/15/15 Ysabel Rivas PharmD [address] [place] [address] Pharmacist Internal Medicine 10/04/23 [facility] 02/23/24 documented as of this encounter
--- OUTSIDE RECORDS SUMMARY | 2024-07-04 08:51 | XMS_ITS | Encounter Summary ---
Author Organization [employer] [facility] Address [address] [place] [address] 7t [place] [address] Care Team Providers Care Structural Fitter Name Role Phone Name, Iain WHITESIDE Primary Care Provider PuiaYsabel PharmD Unavailable Reason for Visit * Reason Comments Med Refill Encounter Details Date Type Department Care Team (Late st Contact Info) Description 04/09/2022 Refill [facility] MED[facility]INE [address] [place] [address] [phone] Name, MD Iain [address] [place], [place] [phone] Social History Tobacco Use Types Packs/Day Years [...] suspected to have Coronavirus/COVID-19? No / Unsure 03/20/2022 10:25 AM EST documented as of this encounter Plan of Treatment Upcoming Encounters Date Type Department Care Team (Late st Contact Info) Description 07/10/2024 9:30 AM EDT Medication Management [facility] [address] [place] [address] [phone] Puia, Ysabel, PharmD [address] [place], [place] [phone] 09/01/2024 9:00 AM EDT Telemedicine [facility] [address] [place] [address] [phone] Milena Barnes RN 10/13/2024 10:15 AM EDT Office Visit [facility] [address] [place] [phone] Name, MD Iain [address] [place] [address] documented as of this encounter Visit Diagnoses Not on filedocumented in this encounter Care Teams Structural Fitter Relationship Specialty Start Date End Date Name, MD Iain [address] [place] [address] PCP - General Family Medicine 04/15/15 Ysabel Rivas PharmD [address] [place] [address] Pharmacist Internal Medicine 10/04/23 [facility] 02/23/24 documented as of this encounter
--- OUTSIDE RECORDS SUMMARY | 2024-07-04 08:51 | XMS_ITS | Encounter Summary ---
Author Organization [employer] Address [address] [facility] 7t [place] [address] Care Team Providers Care Timber Grader Name Role Phone Name, Iain WHITESIDE Primary Care Provider [phone] Ysabel Rivas PharmD Unavailable [phone] Reason for Visit * Reason Comments Med Refill Encounter Details Date Type Department Care Team (Late st Contact Info) Description 08/05/2023 Refill [facility] MEDICINE [address] [place] [address] Name, MD Iain [address] [place], [place] [phone] Chronic pain syndrome Social History Tobacco Use [...] Description 07/10/2024 9:30 AM EDT Medication Management [facility] MEDICINE [address] [place] [phone] Ysabel Rivas PharmD [address] [place] [address] 09/01/2024 9:00 AM EDT Telemedicine [address] [address] Milena Barnes RN 10/13/2024 10:15 AM EDT Office Visit [facility] MEDICINE [address] [place] [phone] Name, MD Iain [address] [place] [phone] documented as of this encounter Visit Diagnoses Diagnosis Chronic pain syndrome documented in this encounter Additional Health Concerns Assessment Noted Time PHQ-9 Depression Total Score: 0 08/29/19 23 9:29 AM EDT documented as of this encounter Care Teams Timber Grader Relationship Specialty Start Date End Date Name, MD Iain [address] [place] [address] PCP - General Family Medicine 04/15/15 Ysabel Rivas PharmD [address] [place] [phone] Pharmacist Internal Medicine 10/04/23 [facility] 02/23/24 documented as of this encounter
--- OUTSIDE RECORDS SUMMARY | 2024-07-04 08:51 | XMS_ITS | Encounter Summary ---
Author Organization [employer] Address [address] [facility] 7t [place] [address] Care Team Providers Care Battery Recharger Name Role Phone Name, Iain WHITESIDE Primary Care Provider [phone] Ysabel Rivas PharmD Unavailable [phone] Encounter Details Date Type Department Care Team ([facility] st Contact Info) Description 01/07/2024 Telephone [facility] MEDICINE [address] [place], [place] [phone] Name, MD Iain [address] [place] [address] Social History Tobacco Use Types Packs/Day Years [...] Description 07/10/2024 9:30 AM EDT Medication Management [address] [address] Ysabel Rivas, PharmD [address] [place] [address] 09/01/2024 9:00 AM EDT Telemedicine [address] [address] Milena Barnes RN 10/13/2024 10:15 AM EDT Office Visit [address] [address] Name, MD Iain [address] [place] [address] documented as of this encounter Goals Goal Patient Goal Type Associated Problems Recent Progress Patient-Stated? Author Hemoglobin A1c < 7.5 Result Component 6(03/07/2024 12:49 PM EST) No Ysabel Rivas, PharmD Note: Per ADA higher A1c goal would be appropriate given age. Will target 7.5% (over <8.0%) given cardiac hx (CAD, hx of HI) Record your blood sugar as directed Result [...] documented as of this encounter Care Teams Battery Recharger Relationship Specialty Start Date End Date Name, MD Iain [address] [place], [place] [phone] PCP - General Family Medicine 04/15/15 Ysabel Rivas, Toney [address] [place] [address] Pharmacist Internal Medicine 10/04/23 [facility] 02/23/24 documented as of this encounter
== END 2024-07-04 08:31 | disposition home or self-care (01) ==
LOC: HO.US 08:30
PROVIDERS: PCP Internal Medicine Geriatric Medicine; Visit Provider Internal Medicine
DX: K74.60 Unspecified cirrhosis of liver (principal); K83.8 Other specified diseases of biliary tract
CPT/HCPCS: 76700

== ENCOUNTER → 2024-07-04 08:32 | Outpatient (BNV) | payer OTHER, SELFPAY | PROVIDERS: PCP Internal Medicine Geriatric Medicine; Visit Provider Radiology Diagnostic Radiology | DX: N28.1 Cyst of kidney, acquired (principal) | CPT/HCPCS: 76700 ==

== ENCOUNTER 2024-08-09 08:53 | Outpatient (AMB) | payer OTHER, SELFPAY ==
--- NOTE | 2024-08-09 09:06 | MHC.OFFVIS ---
Vital Signs 08/09/24 09:10 Height 5 ft 6 in Weight 201 lb BMI 32.4 BP 110/59 L Blood Pressure Location Lt brachial Position Sitting Pulse 54 Pulse Oximetry (%) 100 Oxygen Delivery Method Room Air Intake Visit Reasons: 2 mo f/u Cirrhosis and imaging results Intake Note: Patient 2 mo f/u Cirrhosis and US results. Patient denies any other GI issues. Elementary Assistant Principal Required: No Accompanied by: Family/Other Allergies hydrocodone [Vicodin] Allergy (Intermediate, Verified 08/09/24 09:05) Rash HPI Comments Details: This is a 76-year-old gentleman with past medical history of hypertension, type 2 diabetes, obesity, coronary artery disease, remote history of alcohol use disorder, who was referred to the gastroenterology office for newly diagnosed cirrhosis. Patient is accompanied by his , who also helped interpret for him. Initial note 01/06/22: Per the notes received from primary care provider's office, he was seen at [facility] earlier in November for abdominal pain. Workup included CT scan of the abdomen that showed cirrhotic appearing liver. Of note, his lipase was also elevated at 663. CT abdomen and pelvis 11/21/2021: Scarring in the lower lobes with cystic lucencies similar to prior exam. Mild cardiomegaly. Liver demonstrates a nodular contour consistent with cirrhosis. Patient reports no gastrointestinal complaints to include abdominal pain, nausea, vomiting, changes in appetite, swelling in legs, new rash, shortness of breath, confusion. His only complaint is a bulge that appears in his abdomen whenever he is sitting up. He reports history of heavy alcohol use, but has been sober for 17 years. Also quit smoking. Does not report any history of IV drug use. No family history of liver disease to include liver cancer. Also does not report any history of iron overload, early COPD/pulmonary disease, early neuropsychiatric illness in the family. Recent endoscopy: EGD/colonoscopy 2019: EGD with H pylori gastritis. Patient does not recall getting treated. Colonoscopy was technically challenging and completed with position change and applying pressure. Good prep. 1.5 cm tubular adenoma in the transverse colon. US elastography 01/2022: No focal mass/lesion in the liver. Labs 01/06/22: Peth negative. Normal plt count. Not immune to HBV. EGD/colo 03/05/22 Excellent prep to the T.I. 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 Duodenal mucosa within normal limits; preserved villous architecture and no increased intraepithelial lymphocytes seen.? B.? Stomach, random, biopsy:? Gastric antral mucosa with moderate chronic active gastritis and numerous Helicobacter pylori organisms identified along with intestinal metaplasia; negative for dysplasia.? 03/20/22 Reports no gastrointestinal complaints. Denies any abdominal pain, nausea, vomiting, changes in appetite, increased abdominal distension. Continues to remain abstinent from alcohol. His recalls that he may have started hepatitis-B vaccination series, but does not know when he is due for next dose. She will check with his primary care provider. EGD and colonoscopy results discussed. Including results of H pylori, with gastric metaplasia. No family history of stomach cancer. 11/18/22: Coming in after Mar for follow up. Reports taking Abx however unsure if took them properly as reports still has some of the pills left. reports pt has frequent coughing and difficulty swallowing michael liquids - was not present at the time of previous EGD but has been progressing since earlier this year. No change in appetite, no weight loss. She is also worried about a lump that forms in his abdomen on sitting up. In terms of liver cirrhosis, no abd distention, swelling, shortness of breath or rash reported. Pt was not aware of US that was ordered for him earlier this year. Also due for surveillance EGD later this year. 12/30/22: Reviewed H Pylori breath test - eradicated. Pt continues to report lump forming in the abdomen and remains worried about a hernia. Reassured that based on CT findings no ventral hernia and that this is likely diastasis. Otherwise no other GI issues to include abd pain, N,V, changes in BMs. 05/29/24: Pt seen in office after almost 18 months. Lost to follow up. Had mutiple admission at [facility] [place] last year Feb 2024 for covid, complicated by pericarditis and pericardial effusion, Afib. Currently following with Cardiology. Pericardial effusion better per their documentation. Pt remains on high dose ibuprofen and colchicine as well as eliquis. In terms of cirrhosis, pt interestingly had very little recollection of this diagnosis. Most of the visit was spent reviewing this in detail. brings up altered sleep habits > 6 months. Sleeps very little during the night and sleeps during the day. does not report any mood or memory issues. US Abd nov 2023: 1. There is generalized increase in hepatic echotexture, consistent with fatty infiltration or hepatocellular disease. Please correlate clinically. The provided history of cirrhosis is noted. No focal hepatic mass or intrahepatic biliary dilatation is seen. 2. There is dilatation of the common bile duct to 9 mm, without pancreatic mass or choledocholithiasis noted. If clinically indicated, this can be further evaluated with abdominal MRI/MRCP or CT. CT abd/pel Feb 2024 ([facility] [place] Gallbladder: No CT evidence of gallbladder pathology. Bile ducts: No biliary ductal dilation. Spleen: Normal in size. Pancreas: No suspicious lesion or ductal dilatation. Stomach, small bowel, and large bowel: Normal caliber stomach and bowel loops. No evidence of obstruction. Colonic diverticulosis without evidence of acute diverticulitis. Appendix: Normal appendix. 08/09/24: Here for follow up. Accompanied by his . Seen with the help of switching clerk. Pt and again were counseled re cirrhosis and its natural progression. Did not trial lactulose - caused N/V so stopped after a few doses. Can not recall if that helped with his alertness levels and sleep wake cycle. US results reviewed, no focal mass. CBD 5 mm. Due for EGD this year. [facility] Medical History Chronic renal insufficiency Sleep apnea CVA (cerebral vascular accident) BPH (benign prostatic hyperplasia) Depression Alcohol use disorder Cirrhosis Elevated cholesterol Chronic prescription opiate use Obesity Type 2 diabetes Coronary artery disease Hypertension Surgical History Hx of transurethral resection of prostate History of esophagogastroduodenoscopy (EGD) Hx of colonoscopy Social History Household Members: Spouse Housing: House Are you a primary farm or ranch animal caretaker to a significant other at home: No Do you presently have visiting nurse or other home services: Yes Patient Tobacco Use Status: Former Tobacco user Tobacco use type: Cigarette Review of Systems Const All systems reviewed & are unremarkable except as noted in HPI and below Physical Exam Vital Signs: Last Vital Signs Pulse 54 08/09/24 09:10 BP 110/59 L 08/09/24 09:10 Pulse Ox 100 08/09/24 09:10 Oxygen Delivery Method Room Air 08/09/24 09:10 BMI result Body Mass Index 32.4 Gen Appear: NAD, well nourished HEENT: No scleral icterus, no bitemporal wasting noted Chest: CTA Abd: soft, nontender, nondistended, no shifting dullness to percussion, bowel sounds active , 4 finger diastasis recti Ext: no pitting edema Neuro: A/Ox3, no asterixis Derm: Spider angioma on chest noted Assessment & Plan Assessment & Plan (1) Cirrhosis: Code(s): K74.60 - Unspecified cirrhosis of liver Category: Medical Plan: Compensated cirrhosis MELD-Na 8 Child Class A Reviewed in detail that the likely etiology of his cirrhosis was previous background of alcohol use and more recently metabolic associated fatty liver disease. Patient and were educated on natural history and evolution of cirrhosis, and risk factors for progression of liver disease. Was unable to cont lactulose due to s/e. Will switch to rifaximin. Pt also overdue for MELD labs. 1. MELD labs - pt reminded again to get these done. 2. Question of covert HE as outlined above. STOP lactulose. Start Rifaximin 550 BID. 3. Variceal screening: Small varices and PHG 02/2023. Repeat due 02/2025. Msg already sent to [facility]. 4. HCC screening: US Abd due in Dec 2024. 5. Nutrition: Advised to take 2g Na diet. No protein restriction advised. Add a night time snack. 6. Avoid NSAIDs. Tylenol ok to take for pain control as needed up to 2g/day. 7. Advanced age + well compensated cirrhosis with low MELD, no indication for transplant referral currently. (2) Dilated bile duct: Code(s): K83.8 - Other specified diseases of biliary tract Category: Medical Plan: Noted incidentally on Nov 2023 US Abd. No riddhi dil noted on contrasted CT done in [facility] [place]. Plan: - Check LFTs - US Abd - if has persistent riddhi dil and/or elevated LFTs, will proceed with MRI/MRCP (3) Personal history of colonic polyps: Code(s): Z86.010 - Personal history of colon polyps Category: Medical Plan: Has history of 1.5 cm tubular adenoma in 2019. No polyps noted on 02/2022 colo (excellent prep). Repeat colo will be due in 5 years (02/2027) due to personal hx of advanced adenoma. Plan Follow up 6 months Orders: Orders Lipid Panel Today K74.60 - Unspecified cirrhosis of liver Hemoglobin A1c Today K74.60 - Unspecified cirrhosis of liver Medications: New rifaximin 550 mg PO BID 90 days 180 tabs 1RF Coding Level of Care Code Est Pt Level 4 (87779) Complex EM visit Add On G2211 Diagnoses Cirrhosis K74.60 Dilated bile duct K83.8 Personal history of colonic polyps Z86.010
[2024-08-09 09:10] VITALS: BP 110/59; PULSE 54; O2SAT 100; BMI 32.4
--- OUTSIDE RECORDS SUMMARY | 2024-08-09 09:17 | XMS_ITS | Encounter Summary ---
Author Organization [employer] Address [address] [facility] 7[address] [place] [address] Care Team Providers Care Online Project Manager Name Role Phone Name, Iain WHITESIDE Primary Care Provider [phone] Ysabel Rivas PharmD Unavailable [phone] Reason for Visit * Reason Comments Med Refill Encounter Details Date Type Department Care Team (Late st Contact Info) Description 01/14/2023 Refill [facility] MEDICINE [address] [place] [address] Name, MD Iain [address] [place], [place] [phone] Chronic pain syndrome Social History Tobacco Use [...] Care Team (Late st Contact Info) Description 08/10/2024 9:00 AM EDT Medication Management [facility] MEDICINE [address] [place] [phone] Ysabel Rivas PharmD [address] [place] [phone] 09/01/2024 9:00 AM EDT Telemedicine [address] [address] Milena Barnes RN 10/13/2024 10:15 AM EDT Office Visit [facility] MEDICINE [address] [place] [address] Name, MD Iain [address] [place] [phone] documented as of this encounter Visit Diagnoses Diagnosis Chronic pain syndrome documented in this encounter Additional Health Concerns Assessment Noted Time PHQ-9 Depression Total Score: 0 08/29/19 23 9:29 AM EDT documented as of this encounter Care Teams Online Project Manager Relationship Specialty Start Date End Date Name, MD Iain [address] [place] [phone] PCP - General Family Medicine 04/15/15 Ysabel Rivas PharmD [address] [place] [phone] Pharmacist Internal Medicine 10/04/23 [facility] 02/23/24 documented as of this encounter
== END 2024-08-09 09:56 | disposition home or self-care (01) ==
LOC: HO.HGI 08:54
PROVIDERS: PCP Internal Medicine Geriatric Medicine; Visit Provider Internal Medicine
DX: K74.60 Unspecified cirrhosis of liver (principal); K83.8 Other specified diseases of biliary tract; Z86.0100 Personal history of colon polyps, unspecified
CPT/HCPCS: 99214; G2211

== ENCOUNTER 2024-08-09 08:53 | Outpatient (REF) | payer OTHER, SELFPAY ==
[2024-08-09 10:43] LABS: Hemoglobin 14.7 g/dl (14.0-18.0); Mean Corpuscular HGB Conc 33.4 g/dl (31.0-36.0); Mean Corpuscular Hemoglobin 29.5 pg (27.0-33.0); Mean Corpuscular Volume 88.4 fL (80.0-98.0); Mean Platelet Volume 9.4 fL (9.4-12.4); Platelet Count 183 X10*3/uL (160-400); Red Blood Count 4.98 X10*6/uL (4.60-5.80); White Blood Count 5.5 X10*3/uL (4.8-10.8)
[2024-08-09 10:51] LABS: INTERNATIONAL NORM RATIO 1.4 (0.9-1.1); Prothrombin Time 16.5 SEC (10.9-12.4)
[2024-08-09 10:54] LABS: Estimated Average Glucose 134 mg/dL; Hemoglobin A1c % 6.3 % (<6.0)
[2024-08-09 12:09] LABS: Alanine Aminotransferase 23 U/L (0-40); Albumin Level 4.2 g/dL (3.5-5.0); Anion Gap 13 (12-20); Aspartate Amino Transferase 35 U/L (5-37); Bilirubin Total 1.3 mg/dL (0.0-1.0); Blood Urea Nitrogen 23 mg/dL (9-16); Calcium 9.7 mg/dL (8.4-10.2); Carbon Dioxide 29 mmol/L (22-29); Chloride 102 mmol/L (96-108); Cholesterol 116 mg/dL (<200); Estimated Glomerular Filt Rate > 60; Glucose Random 115 mg/dL (60-115); HDL Cholesterol 33 mg/dL (>40); LDL Cholesterol Calculated 62 mg/dL (<100); Potassium 5.1 mmol/L (3.3-5.1); Sodium 139 mmol/L (135-145); Triglycerides 107 mg/dL (<150)
[2024-08-09 13:02] LABS: Alkaline Phosphatase 71 U/L (39-117)
== END 2024-08-09 08:54 | disposition home or self-care (01) ==
LOC: HO.LAB 08:53
PROVIDERS: PCP Internal Medicine Geriatric Medicine; Visit Provider Internal Medicine
DX: K74.60 Unspecified cirrhosis of liver (principal); K83.8 Other specified diseases of biliary tract; Z13.6 Encounter for screening for cardiovascular disorders; Z13.1 Encounter for screening for diabetes mellitus
CPT/HCPCS: 36415; 80053; 80061; 83036; 85027; 85610; 99212

== ENCOUNTER 2025-02-05 07:34 | Outpatient (REF) | payer OTHER, SELFPAY ==
--- OUTSIDE RECORDS SUMMARY | 2025-02-02 23:59 | XMS_ITS | Continuity of Care Document ---
Author Organization [facility] Address [address] [place] [id number]- Care Team Providers Care Data Systems Analyst Name Role Phone Name Iain WHITESIDE Primary Care Physician Encounter [facility] Date(s): 12/14/24 - 02/02/25 [facility] [address] [place] [id number] Encounter Diagnosis CAD in [place] artery(Discharge Diagnosis) - 01/03/25 HTN (hypertension)(Discharge Diagnosis) - 01/03/25 HLD (hyperlipidemia)(Discharge Diagnosis) - 01/03/25 Pericarditis(Discharge Diagnosis) - 01/03/25 Preop examination(Discharge Diagnosis) - 01/03/25 Atrial fibrillation(Discharge Diagnosis) - 01/03/25 Attending Physician: Corey Dangelo NP Admitting Physician: Corey Dangelo NP Encounter Type: Pre-OutPatient One Time Allergies, Adverse Reactions, Alerts Substance Criticality Severity [...] 20 mg, By Mouth, Daily at bedtime, # 30 tablet, 0 Refills, Maintenance, 02/02/25 12:52:00 PM EST, Tablet, [id number], Partial fill upon patient request if the prescription is for aschedule II opioid drug., 168, cm, 07/11/24 17:53:00 EDT, Height, 92.4, kg, 07/11/24 17:53:00 EDT, Dry Weight Start Date: 02/02/25 Status: Ordered Medication Dispense Status: Completed Quantity: 30.0 Unit: tablet Total Allowed Fills: 1 Fills Dispensed: 0 colchicine 0.6 mg oral tablet 0.6 mg, By Mouth, 2 times a day, # 180 tablet, Refills 3, Tot. Refills 3, Maintenance, 02/02/25 12:53:00 PM EST, Route to Pharmacy Electronically, [id number], Partial fill upon patient request if the prescription is for a schedule II opioid drug., 168, cm, 07/11/24 17:53:00 EDT, Height, 92.4, kg, 07/11/24 17:53:00 EDT, Dry Weight Start Date: 02/02/25 Status: Ordered Medication Dispense Status: Completed Quantity: 180.0 Unit: tablet Total Allowed Fills: 4 Fills Dispensed: 0 duloxetine 30 mg oral [...] day, # 60 tablet, 5 Refills, Maintenance, 01/18/25 2:28:00 PM EST, Tablet, [id number], Partial fill upon patient request if the prescription is for a schedule II opioid drug., 168, cm, 07/11/24 17:53:00 EDT, Height, 92.4, kg, 07/11/24 17:53:00 EDT, Dry Weight Start Date: 01/18/25 Status: Ordered Medication Dispense Status: Completed Quantity: 60.0 Unit: tablet Total Allowed Fills: 6 Fills Dispensed: 0 ferrous sulfate 325 mg oral enteric coated tablet 325 mg, By Mouth, Daily, # 30 tablet, Refills 0, Tot. Refills 0, Maintenance, 02/12/24 1:49:00 PM EST, [facility] fill upon patient request if [...] Daily, # 30 tablet, 0 Refills, Maintenance, 02/02/25 12:52:00 PM EST, Tablet, [id number], Partial fill upon patient request if the prescription is for a schedule II opioid drug., 168, cm, 07/11/24 17:53:00 EDT, Height, 92.4, kg, 07/11/24 17:53:00 EDT, Dry Weight Start Date: 02/02/25 Status: Ordered Medication Dispense Status: Completed Quantity: 30.0 Unit: tablet Total Allowed Fills: 1 Fills Dispensed: 0 metoprolol 25 mg oral tablet, extended release 25 mg, 1, tablet, By Mouth, Daily, # 30 tablet, Refills 0, Tot. Refills 0, Maintenance, 02/12/24 1:50:00 PM EST, Route to Pharmacy Electronically, [facility], Partial fill upon patient request if [...] Maintenance, 02/12/24 1:49:00 PM EST, EC Capsule, [facility], Partial fill upon patient request if [...] Confirmed Active Heme positive stool Confirmed Active *[phone] [employer] Montserrat Duncan Confirmed Active Tubular adenoma of colon 2018 x 2, repeat colonoscopy in 2022 Confirmed 11/05/17 Active 1Problem added by Discern Expert Diagnosis Diagnosis Type Effective Dates Health Status Clinical Service Informant CAD in [place] artery Discharge Diagnosis 01/03/25 HTN (hypertension) Discharge Diagnosis 01/03/25 HLD (hyperlipidemia) Discharge Diagnosis 01/03/25 Pericarditis Discharge Diagnosis 01/03/25 Preop examination Discharge Diagnosis 01/03/25 Atrial fibrillation Discharge Diagnosis 01/03/25 Social History Social History Type Response Smoking Status Former smoker; Tobac co user in household: Yes; Other: Ex-; entered on: 04/27/17 Sex Sex Representation Male (finding) Cardiology Outpatient Note * Antolin VERDUGO, Corey Leger: PERFORM Event Display: Cardiology Note Office Authored Date: [id number] patient no show Patient Care team information Care Team Personnel Name: Lucio Lebron RN Position: S RN Member Role: Primary Care Nurse Name: Brianda Hurtado RN Position: S RN Member Role: Primary Care Nurse Name: Teetee Hill RN Position: S RN Member Role: Primary Care Nurse Name: Iain Moura MD Position: S Outreach Member Role: PCP Address: [address] [place] [id number] Telecom: Name: Kenzie Silva RN Position: S RN Member Role: Primary Care Nurse Name: Teresa Madrigal RN Position: S RN Member Role: Primary Care Nurse Name: Lucero Sandoval RN Position: GAURI PEREZ RN Member Role: Primary Care Nurse Care Team Related Persons Name: ERICKSON CHAND JR Name: ESTRADA CHAND Insurance Providers Guarantor name: ERICKSON CHAND [facility] Plan Information #: 1 Payer: [employer] Payer Identifier: NA Member Number: [id number] Group Number: NA Subscriber Identifier: [id number] Relationship to Subscriber: self Coverage Type: Medicare Managed Care (Includes Medicare Advantage Plans) Coverage Verification Date: NA Telecom: NA Address: NA
--- NOTE | ~2025-02-05 | US_ITS ---
CLINICAL HISTORY: K74.60 - Unspecified cirrhosis of liver US abdomen complete. COMPARISON: None provided. Technique: Real time sonographic imaging, including color-flow imaging, was performed by the computer engineering technologist. Multiple credit resolution representative static images were saved for review. FINDINGS: Distal abdominal aortic ectasia measuring up to 2.8 cm. The visualized portions of the pancreas appear normal. The liver has mildly coarsened echotexture. The main portal vein is antegrade. Liver, right lobe size: 14.5 cm, normal. The gallbladder is contracted. No cholelithiasis or sludge identified. There is a negative sonographic Quinones's sign. Gallbladder wall: 2 mm, normal. Common bile duct: 7 mm, normal. Right kidney: Cortical medullary differentiation is maintained. Normal color flow by Doppler. Several right renal cystic lesions measuring up to 1.2 cm of the superior pole. No hydronephrosis. Right kidney length: 10.8 cm Left kidney: Cortical medullary differentiation is maintained. Normal color flow by Doppler. Left renal simple cysts present measuring up to 4.7 cm in the midportion. No hydronephrosis. Left kidney size: 11.5 cm The spleen has normal echogenicity. Splenic length: 12.2 cm, normal. No free intraperitoneal fluid identified. IMPRESSION: 1. Mildly coarsened hepatic echotexture. No hepatic lesion. 2. Bilateral renal cystic lesions measuring up to 4.7 cm on the left kidney. 3. Distal abdominal aortic ectasia measuring up to 2.8 cm. This document has been electronically signed by: Carson Ennis MD on 02/05/2025 16:56:49
--- OUTSIDE RECORDS SUMMARY | 2025-02-05 07:37 | XMS_ITS | Clinical Summary ---
Author Organization [employer] Address 75 [facility] 7t [place] [address] Care Team Providers Care Interventional Technologist Name Role Phone Name, Iain WHITESIDE Primary Care Provider [phone] Ysabel Rivas PharmD Unavailable Allergies Active Allergy Reactions Criticality Noted Date [...] 2 diabetes mellitus with hyperglycemia, unspecified whether long chain beamer insulin use (HCC) Use as directed, up to 4 times daily. 100 each 11 024 Active Sure Comfort Pen [place] 31G X 5 MM misc Use as [...] 20 MG tabletIndicati ons:Coronary artery disease involving cahto coronary artery of cahto heart, unspecified whether angina present,Type 2 diabetes mellitus with other specified complication, without long-term current use of insulin ([facility]) Take 1 tablet (20 mg) by mouth at bedtime. 90 tablet 3 Active empagliflozin- metFORMIN ER (Synjardy XR) 10-1000 MG 24 hr tabletIndicati ons:Type 2 diabetes mellitus with other specified complication, without long-term current use of insulin ([facility]) Take 1 tablet by mouth with breakfast. 90 tablet 3 025 2025 Active glucose 4 g chewable tabletIndicati ons:Type 2 diabetes mellitus with other specified complication, without long-term current use of insulin ([facility]) Chew 4 tablets (16 g) if needed for low blood sugar. (BG < 70 MG/DL). Repeat as needed & as directed. 40 tablet 5 Active insulin glargine (Lantus SoloStar) 100 UNIT/ML penIndications :Type 2 diabetes mellitus with other specified complication, without long-term current use of insulin ([facility]) Inject 12 Units under the skin at bedtime. 15 mL Active Semaglutide, 2 MG/DOSE, (Ozempic, 2 MG/DOSE,) 8 MG/3ML solution pen-injectorIn dications:Type 2 diabetes mellitus with other specified complication, without long-term current use of insulin ([facility]) Inject 0.75 mL (2 mg) under the skin 1 (one) time per week. 3 mL Active sildenafil (Viagra) 100 MG tablet TAKE 1 TABLET BY MOUTH 1 HR BEFORE SEXUAL RELATIONS ONCE DAILY NEEDED 10 tablet Active Continuous Glucose Sensor (FreeStyle Fran 2 Plus Sensor) miscIndication s:Type 2 diabetes mellitus with other specified complication, without long-term current use of insulin ([facility]) 1 each every 8 (eight) hours. Apply 1 sensor every 15 days as directed for CGM. Continue to scan Q8H, at minimum, to capture 24 hr BG data. 2 each Active glucose blood (FreeStyle Precision Bob Test) test stripIndicatio ns:Type 2 diabetes mellitus with other specified complication, without long-term current use of insulin ([facility]) Use as needed to check blood glucose readings by subcutaneous route 100 each Active Continuous Glucose Site Acquisition Specialist (FreeStyle Fran 2 [place]) deviceIndicati ons:Type 2 diabetes mellitus with other specified complication, without long-term current use of insulin (HCC) Scan sensor every 8 hours 1 each [...] 28 days. 56 tablet 025 2024 Active oxyCODONE-acet aminophen (Percocet) 5-325 MG tabletIndicati ons:Chronic pain syndrome Take 1 tablet by mouth every 12 (twelve) hours if needed for severe pain for up to 28 days. Do not start before December 29, 2024. 56 tablet 025 2024 Discontinued(R eorder [...] 11/05/2017 Overview (03/25/2023): Treated successfully 2019 by [facility] Tubular adenoma of colon 11/05/2017 Respiratory crackles 05/31/2017 Depressive disorder 06/18/2015 Onychomycosis 05/13/2015 BPH (benign prostatic hyperplasia) 07/04/2014 Obstructive sleep apnea 02/20/2014 CKD (chronic kidney disease) stage 3, GFR 30-59 ml/min ([facility]) 05/09/2013 Overview (08/25/2022): GFR 58 04/2013 Coronary artery disease 04/06/2013 Overview (03/25/2023): Patient had cardiac cath back in 2013 at [facility] showing minimal coronary irregularities Hemorrhoids 04/06/2013 Obesity 04/06/2013 Old IA (myocardial infarction) 04/06/2013 Type 2 diabetes mellitus [...] Encounters Date Type Department Care Team Description 01/29/2025 Telephone [facility] [place] [address] Iain Moura MD pre op 01/25/2025 Refill [facility] [place] [address] Iain Moura MD Chronic pain syndrome 01/12/2025 11:00 AM EST Telemedicine [facility] [place] [address] Milena Barnes, RN Long-term current use of opiate analgesic 01/12/2025 Telephone [facility] [place] [address] Milena Barnes RN 01/12/2025 Travel 01/12/2025 Telephone [facility] [place] [address] Iain Moura MD Call Back Request 01/05/2025 Telephone [facility] [place] [address] Iain Moura MD Prior Authorization 12/26/2024 Refill [facility] [address] [place] [address] Name, MD Iain Chronic pain syndrome 12/05/2024 Refill [facility] [address] [place] [address] NameIain MD 11/29/2024 Telephone [facility] [address] [place] [address] NameIain MD Med Refill 11/27/2024 Refill [facility] [address] [place] [address] NameIain MD Chronic pain syndrome 11/15/2024 Telephone [facility] [address] [place] [address] NameIain MD 11/12/2024 Refill [facility] [address] [place] [address] NameIain MD Depression, unspecified depression type 11/10/2024 9:00 AM EDT Telemedicine [facility] [address] [place] [address] Milena Barnes, PAO Long-term current use of opiate analgesic 11/10/2024 Refill [facility] [address] [place] [address] Milena Barnes RN 11/10/2024 Travel 11/09/[address] [address] NameIain MD Referral from Last 3 Months Immunizations Immunization Administration [...] Care Team (Late st Contact Info) Description 02/07/2025 9:30 AM EST Office Visit [facility] [address] [place] [address] Name, MD Iain [address] [place] [address] 02/08/2025 1:30 PM EST Office Visit [facility] [address] [place] [address] Vianey Alaniz MD [address] [place] [address] 04/20/2025 10:30 AM EST Telemedicine [facility] [address] [place] [address] Milena Barnes, RN Health Maintenance Due Date [...] Author Hemoglobin A1c < 7.5 Result Component 6.7(10/14/19 10:12 AM EDT) No Ysabel Rivas PharmD [...] 24H data. Check BG manually, as directed. Help patients manage their type 2 diabetes Care Plan Help patients manage their type 2 diabetes No Sabas Do Weekly blood pressure task Care Plan Weekly blood pressure task No Sabas Do Help patients manage their type 2 diabetes Care Plan Help patients manage their type 2 diabetes No Sabas Do Patient has chronic kidney disease Care Plan Patient has chronic kidney disease No Sabas Do Weekly blood pressure task Care Plan Weekly blood pressure task No Sabas Do Patient has chronic kidney disease Care Plan Patient has chronic kidney disease No Sabas Do Weekly blood pressure task Care Plan Weekly blood pressure task No Sabas Do Weekly blood pressure task Care Plan Weekly blood pressure task No Sabas Do Patient has chronic kidney disease Care Plan Patient has chronic kidney disease No Sabas Do Patient has chronic kidney disease Care Plan Patient has chronic kidney disease No Sabas Do Procedures Procedure Name Priority Date/Time Associated Diagnosis Comments POCT GLYCATED HEMOGLOBIN, TOTAL Routine 10/13/2024 10:12 AM EDT Type 2 diabetes mellitus with other specified complication, without long-term current use of insulin ([facility]) LIPID PANEL, STANDARD Routine 08/09/2024 10:26 AM EDT DIABETES EYE EXAM Routine 05/25/2023 ALBUMIN, RANDOM URINE W/CREATININE Routine 03/26/2023 9:53 AM EST Type 2 diabetes mellitus with other specified complication, without long-term current use of insulin ([facility]) from Last 3 Months or Most Recently [...] 10:26 AM EDT) Triglycerides 107 <150 mg/dL [facility] Comment:Desirable Triglyceri de: less than 150 mg/dLBorderline High Triglyceride 150-199 mg/dLHigh Triglyceride: 200-499 mg/dLVery High Triglyceride: greater than or equal to 5OO mg/dL Cholesterol 116 <200 mg/dL [facility] Comment:Desirable Cholestero l: less than 200 mg/dLBorderline High Cholesterol: 200-239 mg/dLHigh Cholesterol: greater than 239 mg/dL LDL Cholesterol Calculated 62 <100 mg/dL [facility] Comment:Desirable LDL: less than 100 mg/dLNear Optimal/Above Optimal LDL: 110- 129 mg/dLBorderline High LDL: 130-159 mg/dLHigh LDL: 160-189 mg/dLVery High LDL: greater than or equal to 190 mg/dL HDL Cholesterol 33(L) >40 mg/dL [facility] Comment:Desirable HDL: great er than 40 mg/dL Note: This HDL assay may give artificially low results in patients with liver disease. 08/09/2024 10:2 6 AM EDT 08/09/2024 10:26 AM EDT Generic External Data Provider LAB BLOOD ORDERAB LES Final Result Performing Organization Address [facility] Co de Phone Number [facility] [address] [place] [phone] * Diabetes Eye Exam (05/25/2023) Eye Exam Normal Normal, BIRADS 0 , BIRADS 1 , BIRADS 2, BIRADS 3 , BIRADS 4+ Iain Moura MD HEALTH MAINTENANCE Final Result * (ABNORMAL) Albumin, Random Urine W/Creatinine (03/26/2023 9:53 AM EST) Creatinine, Urine 295.56 mg/dL [facility] Microalbumin Urine 140.0 mg/L [facility] Microalbum Creatinine Ratio Ur 47.3(H) <30 ug/mg cr [facility] Comment:Albumin/Creatinine R atio Reference Ranges: Normal: < 30 ug/mg creatinine Microalbuminuria: 30 - 300 ug/mg creatinineClinical Albuminuria: > 300 ug/mg creatinine Urine (Urine, Random) 03/26/2023 9:53 AM EST 03/26/2023 11:15 AM EST Iain Moura MD LAB URINE ORDERABLES Final Resul t Performing Organization Address [facility] Co de Phone Number [facility] [address] [place] [phone] from Last 3 Months or Most Recently Relevant to Health Maintenance Additional Health Concerns Active Problems Noted Date Diagnosed Date Help patients manage their type 2 diabetes 01/25 Weekly blood pressure task 01/25/2025 Help patients manage their type 2 diabetes 01/25 Patient has chronic kidney disease 01/25/2025 Weekly blood pressure task 01/25/2025 Patient has chronic kidney disease 01/25/2025 Weekly blood pressure task 01/29/2025 Weekly blood pressure task 01/29/2025 Patient has chronic kidney disease 01/29/2025 Patient has chronic kidney disease 01/29/2025 Insurance [facility] C[facility] HOME OPTIONS (HMO D-SNP) [place] [id number] Care Teams Interventional Technologist Relationship Specialty Start Date End Date Name, MD Iain [address] [place] [address] PCP - General Family Medicine 04/15/15 Ysabel Rivas, Toney [address] [place] [address] Pharmacist Internal Medicine 10/04/23 [facility] 02/23/24
--- OUTSIDE RECORDS SUMMARY | 2025-02-05 07:37 | XMS_ITS | Encounter Summary ---
Author Organization [employer] Address 75 [facility] [address] [place] [address] Care Team Providers Care Financial Market Dealer Name Role Phone Name, Iain WHITESIDE Primary Care Provider [phone] Ysabel Rivas PharmD Unavailable [phone] Reason for Visit * Reason Onset Date Comments Med Refill 11/29/2024 Encounter Details Date Type Department Care Team ([facility] st Contact Info) Description 11/29/2024 Telephone [facility] [address] [place] [address] Name, MD Iain [address] [place] [address] Med Refill Social History Tobacco Use Types [...] 5 MG tablet To be sent to: [facility]/pharmacy #[id number] [place], [place] - [address] AT [facility] documented in this encounter Plan of Treatment Upcoming Encounters Date Type Department Care Team (Late st Contact Info) Description 02/07/2025 9:30 AM EST Office Visit [facility] [address] [place] [address] Name, MD Iain [address] [place], [place] [phone] 02/08/2025 1:30 PM EST Office Visit [facility] [address] [place] [address] Vianey Alaniz MD [address] [place] [address] 04/20/2025 10:30 AM EST Telemedicine [facility] [address] [place] [address] Milena Barnes, RN documented as of this encounter Goals Goal Patient Goal Type Associated Problems Recent Progress Patient-Stated? Author Hemoglobin A1c < 7.5 Result Component 6.7( 10:12 AM EDT) No Ysabel Rivas, Toney Note: Per ADA higher A1c goal would be appropriate given age. Will target 7.5% (over <8.0%) given cardiac hx (CAD, hx of [place]) Record your blood sugar as directed Result [...] documented as of this encounter Care Teams Financial Market Dealer Relationship Specialty Start Date End Date Name, MD Iain [address] [place] [address] PCP - General Family Medicine 04/15/15 Ysabel Rivas PharmD [address] [place] [address] Pharmacist Internal Medicine 10/04/23 [facility] 02/23/24 documented as of this encounter
--- OUTSIDE RECORDS SUMMARY | 2025-02-05 07:37 | XMS_ITS | Encounter Summary ---
Author Organization [employer] Address 75 [facility] 7t [place] [address] Care Team Providers Care Hotel Breakfast Attendant Name Role Phone Name, Iain WHITESIDE Primary Care Provider Ysabel Rivas PharmD Unavailable [phone] Reason for Visit * Reason Comments Med Refill Encounter Details Date Type Department Care Team (Late st Contact Info) Description 01/14/2023 Refill [facility] [address] [place] [address] Name, MD Iain [address] [place], [place] [phone] Chronic pain syndrome Social History Tobacco Use [...] Description 02/07/2025 9:30 AM EST Office Visit [facility] MEDICINE [address] [place] [address] Iain Moura MD [address] [place] [address] 02/08/2025 1:30 PM EST Office Visit [facility] MED & PEDS [address] [place] [address] Vianey Alaniz MD 505 [place] [address] 04/20/2025 10:30 AM EST Telemedicine [facility] [address] [place] [address] Milena Barnes, RN documented as of this encounter Visit Diagnoses Diagnosis Chronic pain syndrome documented in this encounter Additional Health Concerns Assessment Noted Time PHQ-9 Depression Total Score: 0 08/29/19 23 9:29 AM EDT documented as of this encounter Care Teams Hotel Breakfast Attendant Relationship Specialty Start Date End Date Iain Moura MD [address] [place] [address] PCP - General Family Medicine 04/15/15 Ysabel Rivas PharmD [address] [place] [address] Pharmacist Internal Medicine 10/04/23 [facility] 02/23/24 documented as of this encounter
--- OUTSIDE RECORDS SUMMARY | 2025-02-05 07:37 | XMS_ITS | Encounter Summary ---
Author Organization [employer] Address 75 [facility] 7t [place] [address] Care Team Providers Care Mangle Roll Operator Name Role Phone Name, Iain WHITESIDE Primary Care Provider [phone] Ysabel Rivas PharmD Unavailable [phone] Reason for Visit * Reason Onset Date Comments Hospital Follow-up 08/13/2023 Encounter Details Date Type Department Care Team ([facility] st Contact Info) Description 08/13/2023 Telephone [facility] [address] [place] [address] Name, MD Iain [address] [place], [place] [phone] Hospital Follow-up Social History Tobacco Use Types [...] EDT Tc from November with [facility] Clinical Research Scientist requesting a HDF appt. Hospital: [facility] Date of admission: 08/09 Discharge date: 08/11 Diagnosed: Hyperkalemia documented in this encounter Plan of Treatment Upcoming Encounters Date Type Department Care Team (Late st Contact Info) Description 02/07/2025 9:30 AM EST Office Visit [facility] [address] [place] [phone] Name, MD Iain [address] [place] [address] 02/08/2025 1:30 PM EST Office Visit [facility] [address] [place] [address] Vianey Alaniz MD [address] [place] [address] 04/20/2025 10:30 AM EST Telemedicine [facility] [address] [place] [address] Milena Barnes RN documented as of this encounter Visit Diagnoses Not on filedocumented in this encounter Additional Health Concerns Assessment Noted Time PHQ-9 Depression Total Score: 0 08/29/19 23 9:29 AM EDT documented as of this encounter Care Teams Mangle Roll Operator Relationship Specialty Start Date End Date NameIain MD [address] [place] [phone] PCP - General Family Medicine 04/15/15 Ysabel Rivas PharmD [address] [place] [address] Pharmacist Internal Medicine 10/04/23 [facility] 02/23/24 documented as of this encounter
--- OUTSIDE RECORDS SUMMARY | 2025-02-05 07:37 | XMS_ITS | Encounter Summary ---
Author Organization [employer] Address [address] [place] [address] 7t [place] [address] Care Team Providers Care Principal Trainer Name Role Phone Name, Iain WHITESIDE Primary Care Provider Ysabel Rivas PharmD Unavailable Reason for Visit * Reason Comments Med Refill Encounter Details Date Type Department Care Team (Late st Contact Info) Description 05/13/2022 Refill [facility] MEDICINE [address] [place] [address] [phone] NameIain MD [address] [place] [address] [phone] Coronary artery disease involving [place] coronary artery of [place] heart, unspecified whether angina present (Primary Dx) [...] Description 02/07/2025 9:30 AM EST Office Visit [facility] MEDICINE [address] [place] [address] [phone] Iain Moura MD [address] [place] [address] [phone] 02/08/2025 1:30 PM EST Office Visit [facility] MED & PEDS [address] [place] [address] Vianey Alaniz MD [address] [place] [address] 04/20/2025 10:30 AM EST Telemedicine [facility] MEDICINE [address] [place] [address] Milena Barnes, RN documented as of this encounter Visit Diagnoses Diagnosis Coronary artery disease involving [place] coronary artery of [place] heart, unspecified whether angina present- Primary documented in this encounter Care Teams Principal Trainer Relationship Specialty Start Date End Date Name, MD Iain [address] [place] [address] PCP - General Family Medicine 04/15/15 Ysabel Rivas PharmD [address] [place] [address] Pharmacist Internal Medicine 10/04/23 [facility] 02/23/24 documented as of this encounter
--- OUTSIDE RECORDS SUMMARY | 2025-02-05 07:37 | XMS_ITS | Encounter Summary ---
Author Organization [employer] Address 75 [facility] 7 [place] [address] Care Team Providers Care Loan Inspector Name Role Phone Name, Iain WHITESIDE Primary Care Provider [phone] Ysabel Rivas PharmD Unavailable [phone] Reason for Visit * Reason Onset Date Comments Call Back Request 01/12/2025 Encounter Details Date Type Department Care Team ([facility] st Contact Info) Description 01/12/2025 Telephone [facility] MED[facility]INE [address] [place] [address] Name, MD Iain [address] [place] [address] Call Back Request Social History Tobacco Use [...] Tc from pt awaiting a call from TECHNICAL ACCOUNT EXECUTIVE Nurse. Contact pt at [phone] documented in this encounter Plan of Treatment Upcoming Encounters Date Type Department Care Team ([facility] st Contact Info) Description 02/07/2025 9:30 AM EST Office Visit [address] [address] Name, MD Iain [address] [place] [address] 02/08/2025 1:30 PM EST Office Visit [facility] MED [facility] PEDS [address] [place] [address] Vianey Alaniz MD [address] [place] [address] 04/20/2025 10:30 AM EST Telemedicine [address] [address] Milena Barnes, RN documented as of this [...] documented as of this encounter Care Teams Loan Inspector Relationship Specialty Start Date End Date Name, MD Iain [address] [place] [address] PCP - General Family Medicine 04/15/15 Ysabel Rivas PharmD [address] [place] [address] Pharmacist Internal Medicine 10/04/23 [facility] 02/23/24 documented as of this encounter
--- OUTSIDE RECORDS SUMMARY | 2025-02-05 07:37 | XMS_ITS | Encounter Summary ---
Author Organization [employer] Address 75 [facility] 7t [place] [address] Care Team Providers Care Biogeographer Name Role Phone Name, Iain WHITESIDE Primary Care Provider [phone] Ysabel Rivas PharmD Unavailable [phone] Encounter Details Date Type Department Care Team ([facility] st Contact Info) Description 06/04/2023 Telephone [facility] MED[facility] [address] [place], [place] [phone] Name, MD Iain [address] [place] [address] Social History Tobacco Use Types Packs/Day Years [...] Description 02/07/2025 9:30 AM EST Office Visit [facility] MED[facility] [address] [place] [address] Name, MD Iain [address] [place] [address] 02/08/2025 1:30 PM EST Office Visit [facility]S [address] [place], [place] [phone] Vianey Alaniz MD [address] [place], [place] [phone] 04/20/2025 10:30 AM EST Telemedicine [address] [address] Milena Barnes, PAO documented as of this encounter Visit Diagnoses Not on filedocumented in this encounter Additional Health Concerns Assessment Noted Time PHQ-9 Depression Total Score: 0 08/29/19 23 9:29 AM EDT documented as of this encounter Care Teams Biogeographer Relationship Specialty Start Date End Date Name, MD Iain [address] [place] [phone] PCP - General Family Medicine 04/15/15 Ysabel Rivas PharmD [address] [place] [address] Pharmacist Internal Medicine 10/04/23 [facility] 02/23/24 documented as of this encounter
--- OUTSIDE RECORDS SUMMARY | 2025-02-05 07:37 | XMS_ITS | Clinical Summary ---
Author Organization [address] [place] [address] [place] [phone] Phone Care Team Providers Care Preparole Counseling Aide Name Role Phone Name, Iain WHITESIDE Primary Care Provider [phone] Medical History Medical History Date Comments Asthma [...] diabetes mellitus, co ntrolled, with renal complications ([facility] V24, [facility] V28) 05/09/2013 DX:Type 2 diabetes mellitus, controlled, with renal complications ([facility]); COMMENT: GFR 58 on 04/22/13. Family [...] to complete this topic Insurance MEDICAID - [place] [facility] JAIL OPTIONS Member Subscriber Plan / Payer (Ef fective for All Dates) Name:Rashid Mcdaniel Relation to Subscriber:Self Name:Rashid Mcdaniel Payer ID:[id number] Group ID:Not on file Type:Not on file Address: [address] [place] [phone] Care Teams Preparole Counseling Aide Relationship Specialty Start Date End Date Name, MD Iain [address] [place], [place] PCP - General Internal Medicine 09/26/14
--- OUTSIDE RECORDS SUMMARY | 2025-02-05 07:37 | XMS_ITS | Encounter Summary ---
Author Organization [employer] Address 75 [facility] 7 [place] [address] Care Team Providers Care Associate Partner Name Role Phone Name, Iain WHITESIDE Primary Care Provider [phone] Ysabel Rivas PharmD Unavailable [phone] Reason for Visit * Reason Onset Date Comments Referral 11/09/2024 Encounter Details Date Type Department Care Team ([facility] st Contact Info) Description 11/09/2024 Telephone [facility] [address] [place] [address] Name, MD Iain 230 [place] [address] Referral Social History Tobacco Use Types Packs/Day [...] is requesting a referral. Contact pt at [phone] documented in this encounter Plan of Treatment Upcoming Encounters Date Type Department Care Team (Late st Contact Info) Description 02/07/2025 9:30 AM EST Office Visit [facility] [place] [address] Name, MD Iain [address] [place], [place] 02/08/2025 1:30 PM EST Office Visit [facility] 505 [place], [place] [phone] Vianey Alaniz MD 505 [place], [place] [phone] 04/20/2025 10:30 AM EST Telemedicine [facility] 230 [place], [place] [phone] Milena Barnes RN documented as of this encounter Goals Goal Patient Goal Type Associated Problems Recent Progress Patient-Stated? Author Hemoglobin A1c < 7.5 Result Component 6.7( 10:12 AM EDT) No Ysabel Rivas, PharmD Note: Per ADA higher A1c goal would be appropriate given age. Will target 7.5% (over <8.0%) given cardiac hx (CAD, hx of [place]) Record your blood sugar as directed Result [...] documented as of this encounter Care Teams Associate Partner Relationship Specialty Start Date End Date Name, MD Iain Rj [place], [place] PCP - General Family Medicine 04/15/15 Ysabel Rivas, EricD [address] [place], [place] Pharmacist Internal Medicine 10/04/23 [facility] 02/23/24 documented as of this encounter
--- OUTSIDE RECORDS SUMMARY | 2025-02-05 07:37 | XMS_ITS | Encounter Summary ---
Author Organization [employer] Address 75 [facility] 7t [place] [address] Care Team Providers Care Quiller Machine Fixer Name Role Phone Name, Iain WHITESIDE Primary Care Provider [phone] Ysabel Rivas PharmD Unavailable [phone] Encounter Details Date Type Department Care Team ([facility] st Contact Info) Description 01/07/2024 Telephone [facility] [address] [place], [place] [phone] Name, MD Iain 230 [place] [address] Social History Tobacco Use Types Packs/Day Years [...] Description 02/07/2025 9:30 AM EST Office Visit [facility] [address] [place] [address] Name, MD Iain 230 [place] [address] 02/08/2025 1:30 PM EST Office Visit [facility] 505 [place] [address] Vianey Alaniz MD 505 [place] [address] 04/20/2025 10:30 AM EST Telemedicine [facility] [address] [place] [address] Milena Barnes, PAO documented as of this [...] documented as of this encounter Care Teams Quiller Machine Fixer Relationship Specialty Start Date End Date Name, MD Iain 230 [place], [place] [phone] PCP - General Family Medicine 04/15/15 Ysabel Rivas, Toney 230 [place] [address] Pharmacist Internal Medicine 10/04/23 [facility] 02/23/24 documented as of this encounter
--- OUTSIDE RECORDS SUMMARY | 2025-02-05 07:37 | XMS_ITS | Encounter Summary ---
Author Organization [employer] Address 75 [facility] 7t [place] [address] Care Team Providers Care Rescue Worker Name Role Phone Name, Iain WHITESIDE Primary Care Provider [phone] Ysabel Rivas PharmD Unavailable [phone] Reason for Visit * Reason Comments Med Refill Encounter Details Date Type Department Care Team (Late st Contact Info) Description 07/06/2023 Refill [facility] 230 [place] [address] Name, MD Iain 230 [place], [place] [phone] Chronic pain syndrome Social History Tobacco Use [...] Description 02/07/2025 9:30 AM EST Office Visit [facility] [address] [place] [address] Iain Moura MD [address] [place] [address] 02/08/2025 1:30 PM EST Office Visit [facility] PEDS 505 [place] [address] Vianey Alanzi MD 505 [place] [address] 04/20/2025 10:30 AM EST Telemedicine [facility] [address] [place] [address] Milena Barnes, RN documented as of this encounter Visit Diagnoses Diagnosis Chronic pain syndrome documented in this encounter Additional Health Concerns Assessment Noted Time PHQ-9 Depression Total Score: 0 08/29/19 23 9:29 AM EDT documented as of this encounter Care Teams Rescue Worker Relationship Specialty Start Date End Date Iain Moura MD [address] [place] [address] PCP - General Family Medicine 04/15/15 Ysabel Rivas PharmD [address] [place] [address] Pharmacist Internal Medicine 10/04/23 [facility] 02/23/24 documented as of this encounter
--- OUTSIDE RECORDS SUMMARY | 2025-02-05 07:37 | XMS_ITS | Encounter Summary ---
Author Organization [employer] Address 75 [facility] 7 [place] [address] Care Team Providers Care Relationship Management Lead Name Role Phone Name, Iain WHITESIDE Primary Care Provider [phone] Ysabel Rivas PharmD Unavailable [phone] Reason for Visit * Reason Onset Date Comments pre op 01/29/2025 Encounter Details Date Type Department Care Team (Late st Contact Info) Description 01/29/2025 Telephone [facility] 230 [place], [place] [phone] Name, MD Iain 230 [place], [place] [phone] pre op Social History Tobacco Use Types Packs/Day Years [...] encounter Miscellaneous Notes * Telephone Encounter - Sabas Pabon - 01/29/2025 1:20 PM EST Date of Surgery: 02/15 Surgical procedure being done: cataract right Type of anesthesia: MAC Lab needed: No EKG: No Surgeon's name: Itz Cazares Facility name: [facility] Surgeon's office number: [phone] Surgeon's office fax number: [phone] Contact name (person you spoke with): Collette Last office note from surgeon requested: Yes Send Message to Manuel Murdock accepted 02/08 apt , will contact pt documented in this encounter Plan of Treatment Upcoming Encounters Date Type Department Care Team ([facility] st Contact Info) Description 02/07/2025 9:30 AM EST Office Visit [facility] [address] [place] [phone] Name, MD Iain [address] [place] [address] [place] [address] 02/08/2025 1:30 PM EST Office Visit [facility] 505 [place] [address] Vianey Alaniz MD 505 [place] [address] 04/20/2025 10:30 AM EST Telemedicine [facility] 230 [place] [address] Milena Barnes RN documented as of this encounter Goals Goal Patient Goal Type Associated Problems Recent Progress Patient-Stated? Author Hemoglobin A1c < 7.5 Result Component 6.7(10/14/19 10:12 AM EDT) No Ysabel Rivas, Toney Note: Per ADA higher A1c goal would be appropriate given age. Will target 7.5% (over <8.0%) given cardiac hx (CAD, hx of [place]) Record your blood sugar as directed Result [...] has chronic kidney disease No Sabas Do documented as of this encounter Visit Diagnoses Not on filedocumented in this encounter Additional Health Concerns Active Problems Noted Date [...] 01/29/2025 Patient has chronic kidney disease 01/29/2025 Assessment Noted Time PHQ-9 Depression Total Score: 8 10/14/19 25 10:39 AM EDT documented as of this encounter Care Teams Relationship Management Lead Relationship Specialty Start Date End Date Name, MD Iain 230 [place] [address] PCP - General Family Medicine 04/15/15 Ysabel Rivas PharmD 230 [place] [address] Pharmacist Internal Medicine 10/04/23 [facility] 02/23/24 documented as of this encounter
--- OUTSIDE RECORDS SUMMARY | 2025-02-05 07:37 | XMS_ITS | Encounter Summary ---
Author Organization [employer] Address [address] [place] [address] 7t [place] [address] Care Team Providers Care Business Banking Officer Name Role Phone Name, Iain WHITESIDE Primary Care Provider [phone] Ysabel Rivas PharmD Unavailable [phone] Reason for Visit * Reason Comments Med Refill Encounter Details Date Type Department Care Team (Late st Contact Info) Description 09/04/2022 Refill [facility] [address] [place] [address] [phone] Name, MD Iain [address] [place] [address] [phone] Chronic pain syndrome Social History Tobacco Use [...] Description 02/07/2025 9:30 AM EST Office Visit [facility] [address] [place] [address] Name, MD Iain 230 [place] [address] 02/08/2025 1:30 PM EST Office Visit [facility] 505 [place] [address] Vianey Alaniz MD 505 [place] [address] 04/20/2025 10:30 AM EST Telemedicine [facility] 230 [place] [address] Milena Barnes, PAO documented as of this encounter Visit Diagnoses Diagnosis Chronic pain syndrome documented in this encounter Additional Health Concerns Assessment Noted Time PHQ-9 Depression Total Score: 0 08/29/19 23 9:29 AM EDT documented as of this encounter Care Teams Business Banking Officer Relationship Specialty Start Date End Date Name, MD Iain 230 [place] [address] PCP - General Family Medicine 04/15/15 Ysabel Rivas PharmD [address] [place] [address] Pharmacist Internal Medicine 10/04/23 [facility] 02/23/24 documented as of this encounter
--- OUTSIDE RECORDS SUMMARY | 2025-02-05 07:37 | XMS_ITS | Clinical Summary ---
Author Organization [facility], Address [address] [place] [address] [place] [address] Phone Care Team Providers Care Scientific Recruiter Name Role Phone Name, Iain WHITESIDE Primary Care Provider [phone] Allergies Active Allergy Reactions Criticality Noted Date [...] PM EDT) Hemoglobin A1C 9.2(H) (4.0-5.6) % [facility] Comment: MONITORING: In known diabetic patients, hemoglobin A1c targets should be discussed with health care provider. DIAGNOSTIC USE: The [place] Diabetes Association (ADA) and the World Health [...] Supplement 1 Testing performed or reported by [facility] [employer] a Service of [facility], [address] [place] [address] Sujata Arreguin MD, Wax Pot Tender [facility]# [id number] Blood specimen (specimen) Venous blood / Unknown 11/15/2020 3:57 PM EDT 11/15/2020 3:58 PM EDT us Yfn Ramirez MD LAB BLOOD ORDERABLES Final Re sult [facility] from Last 3 Months or Most Recently Relevant to Health Maintenance Insurance Care Teams Scientific Recruiter Relationship Specialty Start Date End Date Name, MD Iain [address] [place] [address] PCP - General Internal Medicine 09/23/20
--- OUTSIDE RECORDS SUMMARY | 2025-02-05 07:37 | XMS_ITS | Encounter Summary ---
Author Organization [employer] Address 75 [facility] 7t [place] [address] Care Team Providers Care Refrigeration Insulator Name Role Phone Name, Iain WHITESIDE Primary Care Provider [phone] Ysabel Rivas PharmD Unavailable [phone] Reason for Visit * Reason Comments Med Refill Encounter Details Date Type Department Care Team (Late st Contact Info) Description 10/08/2023 Refill [facility] 230 [place] [address] Name, MD Iain 230 [place], [place] [phone] Chronic pain syndrome Social History Tobacco Use [...] Description 02/07/2025 9:30 AM EST Office Visit [facility] [address] [place] [address] NameIain MD [address] [place] [address] 02/08/2025 1:30 PM EST Office Visit [facility] 505 [place] [address] Vianey Alaniz MD 505 [place] [address] 04/20/2025 10:30 AM EST Telemedicine [facility] [address] [place] [address] Milena Barnes, RN documented as of this encounter Goals Goal Patient Goal Type Associated Problems Recent Progress Patient-Stated? Author Hemoglobin A1c < 7.5 Result Component 6.7( 10:12 AM EDT) Ysabel Cervantes, PharmD Note: Per ADA higher A1c goal would be appropriate given age. Will target 7.5% (over <8.0%) given cardiac hx (CAD, hx of [place]) Record your blood sugar as directed Result [...] documented as of this encounter Care Teams Refrigeration Insulator Relationship Specialty Start Date End Date Name, MD Iain 230 [place] [address] PCP - General Family Medicine 04/15/15 Ysabel Rivas PharmD 230 [place] [address] Pharmacist Internal Medicine 10/04/23 [facility] 02/23/24 documented as of this encounter
--- OUTSIDE RECORDS SUMMARY | 2025-02-05 07:37 | XMS_ITS | Encounter Summary ---
Author Organization [employer] Address [address] [place] [address] 7t [place] [address] Care Team Providers Care Inclusion Manager Name Role Phone Name, Iain WHITESIDE Primary Care Provider [phone] Ysabel Rivas PharmD Unavailable [phone] Encounter Details Date Type Department Care Team (Late st Contact Info) Description 03/11/2022 Orders Only [facility] MED & PEDS 505 [place] [address] Joanie Tillman LPN Social History Tobacco Use [...] Description 02/07/2025 9:30 AM EST Office Visit [address] [address] [place], MD Iain [address] [place] [address] 02/08/2025 1:30 PM EST Office Visit [facility] PED[facility] 505 [place] [address] Vianey Alaniz MD 505 [place] [address] 04/20/2025 10:30 AM EST Telemedicine [address] [address] Milena Barnes, RN documented as of this encounter Visit Diagnoses Not on filedocumented in this encounter Care Teams Inclusion Manager Relationship Specialty Start Date End Date Name, MD Iain 230 [place] [address] PCP - General Family Medicine 04/15/15 Ysabel Rivas PharmD 230 [place] [address] Pharmacist Internal Medicine 10/04/23 [facility] 02/23/24 documented as of this encounter
--- OUTSIDE RECORDS SUMMARY | 2025-02-05 07:37 | XMS_ITS | Encounter Summary ---
Author Organization [employer] Address 75 [facility] 7t [place] [address] Care Team Providers Care Manager Diesel Name Role Phone Name, Iain WHITESIDE Primary Care Provider [phone] Ysabel Rivas PharmD Unavailable [phone] Reason for Visit * Reason Comments Med Refill Encounter Details Date Type Department Care Team (Late st Contact Info) Description 08/05/2023 Refill [facility] 230 [place] [address] Name, MD Iain 230 [place], [place] [phone] Chronic pain syndrome Social History Tobacco Use [...] Description 02/07/2025 9:30 AM EST Office Visit [facility] [address] [place] [address] Iain Moura MD [address] [place] [address] 02/08/2025 1:30 PM EST Office Visit [facility] 505 [place] [address] Vianey Alaniz MD 505 [place] [address] 04/20/2025 10:30 AM EST Telemedicine [facility] [address] [place] [address] Milena Barnes, RN documented as of this encounter Visit Diagnoses Diagnosis Chronic pain syndrome documented in this encounter Additional Health Concerns Assessment Noted Time PHQ-9 Depression Total Score: 0 08/29/19 23 9:29 AM EDT documented as of this encounter Care Teams Manager Diesel Relationship Specialty Start Date End Date Iain Moura MD [address] [place] [address] PCP - General Family Medicine 04/15/15 Ysabel Rivas PharmD [address] [place] [address] Pharmacist Internal Medicine 10/04/23 [facility] 02/23/24 documented as of this encounter
--- OUTSIDE RECORDS SUMMARY | 2025-02-05 07:37 | XMS_ITS | Encounter Summary ---
Author Organization [employer] Address [address] [place] [address] [place] [address] Care Team Providers Care Senior Ui Software Engineer Name Role Phone Name, Iain WHITESIDE Primary Care Provider Ysabel Rivas PharmD Unavailable Reason for Visit * Reason Comments Med Refill Encounter Details Date Type Department Care Team (Late st Contact Info) Description 04/09/2022 Refill [facility] [address] [place] [address] [phone] Name, MD Iain [address] [place] [address] [phone] Social History Tobacco Use Types Packs/Day Years [...] Description 02/07/2025 9:30 AM EST Office Visit [facility] [address] [place] [address] NameIain MD [address] [place] [address] [phone] 02/08/2025 1:30 PM EST Office Visit [facility] 505 [place], [place] [phone] Vianey Alaniz MD 505 [place], [place] [phone] 04/20/2025 10:30 AM EST Telemedicine [facility] 230 [place] [address] Milena Barnes, RN documented as of this encounter Visit Diagnoses Not on filedocumented in this encounter Care Teams Senior Ui Software Engineer Relationship Specialty Start Date End Date Name, MD Iain 230 [place] [address] PCP - General Family Medicine 04/15/15 Ysabel Rivas PharmD 230 [place] [address] Pharmacist Internal Medicine 10/04/23 [facility] 02/23/24 documented as of this encounter
--- OUTSIDE RECORDS SUMMARY | 2025-02-05 07:37 | XMS_ITS | Encounter Summary ---
Author Organization [employer] Address 75 [facility] 7t [place] [address] Care Team Providers Care Geotechnical Intern Name Role Phone Name, Iain WHITESIDE Primary Care Provider [phone] Ysabel Rivas PharmD Unavailable [phone] Reason for Visit * Reason Comments Med Refill Encounter Details Date Type Department Care Team (Late st Contact Info) Description 02/13/2024 Refill [facility] 230 [place] [address] Name, MD Iain 230 [place], [place] [phone] Social History Tobacco Use Types Packs/Day Years [...] placed to pt via BLS interpreting ([place] ID#[id number]). Spoke to pt spouse Katelyn regarding pt [...] Description 02/07/2025 9:30 AM EST Office Visit [facility] 230 [place] [address] Name, MD Iain [address] [place] [address] 02/08/2025 1:30 PM EST Office Visit [facility]S 505 [place], [place] [phone] Vianey Alaniz MD 505 [place], [place] [phone] 04/20/2025 10:30 AM EST Telemedicine [facility] 230 [place] [address] Milena Barnes, RN documented as of this encounter Goals Goal Patient Goal Type Associated Problems Recent Progress Patient-Stated? Author Hemoglobin A1c < 7.5 Result Component 6.7( 10:12 AM EDT) No Ysabel Rivas PharmD Note: Per ADA higher A1c goal would be appropriate given age. Will target 7.5% (over <8.0%) given cardiac hx (CAD, hx of [place]) Record your blood sugar as directed Result [...] documented as of this encounter Care Teams Geotechnical Intern Relationship Specialty Start Date End Date Name, MD Iain 230 [place] [address] PCP - General Family Medicine 04/15/15 Ysabel Rivas PharmD [address] [place] [address] Pharmacist Internal Medicine 10/04/23 [facility] 02/23/24 documented as of this encounter
== END 2025-02-05 07:35 | disposition home or self-care (01) ==
LOC: HO.US 07:34
PROVIDERS: PCP Internal Medicine Geriatric Medicine; Visit Provider Internal Medicine
DX: K74.60 Unspecified cirrhosis of liver (principal)
CPT/HCPCS: 76700

== ENCOUNTER → 2025-02-05 07:36 | Outpatient (BNV) | payer OTHER, SELFPAY | PROVIDERS: PCP Internal Medicine Geriatric Medicine; Visit Provider Radiology Diagnostic Radiology | DX: K74.60 Unspecified cirrhosis of liver (principal); N28.1 Cyst of kidney, acquired; I77.811 Abdominal aortic ectasia | CPT/HCPCS: 76700 ==

== ENCOUNTER 2025-02-06 06:38 | Day surgery (SDC) | payer OTHER, SELFPAY ==
--- OUTSIDE RECORDS SUMMARY | 2025-01-10 23:59 | XMS_ITS | Continuity of Care Document ---
Author Organization [facility] Address [address] [place] [address]- Care Team Providers Care Valve Machine Operator Name Role Phone Name Iain WHITESIDE Primary Care Physician [phone] [id number] Date(s): 12/11/24 - 01/10/25 [facility] [address] [place] [id number] Encounter Type: Triage Allergies, Adverse Reactions, Alerts Substance Criticality Severity Reaction Reaction Severity Status Vicodin Active Sting of Hornets, Wasps, and Bees Causing Poisoning and Toxic Reactions Active Medications acetaminophen-oxyCODONE 325 mg-5 mg oral tablet 1, tablet, By Mouth, Every 12 hours, PRN, Refills 0, Tot. Refills 0, Maintenance, Pain , Severe, 02/09/24 2:56:00 PM EST, Tablet, Partial fill upon patient request if the prescription is for a schedule II opioid drug. Start Date: 02/09/24 Status: Ordered Medication Dispense Status: Completed Total Allowed Fills: 1 Fills Dispensed: 0 atorvastatin 20 mg oral tablet 1 tablet = 20 mg, By Mouth, Daily at bedtime, 0 Refills, Maintenance, 02/09/24 2:56:00 PM EST, Tablet, Partial fill upon patient request if the prescription is for a schedule II opioid drug. Start Date: 02/09/24 Status: Ordered Medication Dispense Status: Completed Total Allowed Fills: 1 Fills Dispensed: 0 colchicine 0.6 mg oral tablet 0.6 mg, By Mouth, 2 times a day, # 180 tablet, Refills 0, Tot. Refills 0, Maintenance, 02/12/24 1:49:00 PM EST, Route to Pharmacy Electronically, [facility], Partial fill upon patient request if the prescription is for a schedule II opioid drug., 170, cm, 02/12/24 11:43:00 EST, Height,103.1, kg, 02/09/24 19:13:00 EST, Dry Weight Start Date: 02/12/24 Stop Date: 05/12/24 Status: Ordered Medication Dispense Status: Completed Quantity: 180.0 Unit: tablet Total Allowed Fills: 1 Fills Dispensed: 0 duloxetine 30 mg oral enteric coated capsule 1 capsule = 30 mg, By Mouth, Daily, # 30 capsule, 0 Refills, Maintenance, 02/09/24 2:57:00 PM EST, Partial fill upon patient request if the prescription is for a schedule II opioid drug. Start Date: 02/09/24 Status: Ordered Medication Dispense Status: Completed Quantity: 30.0 Unit: capsule Total Allowed Fills: 1 Fills Dispensed: 0 Eliquis 5 mg oral tablet 1 tablet = 5 mg, By Mouth, 2 times a day, # 60 tablet, 5 Refills, Maintenance, 02/12/24 1:49:00 PM EST, Tablet, [facility], Partial fill upon patient request if the prescription is for aschedule II opioid drug., 170, cm, 02/12/24 11:43:00 EST, Height, 103.1, kg, 02/09/24 19:13:00 EST,Dry Weight Start Date: 02/12/24 Status: Ordered Medication Dispense Status: Completed Quantity: 60.0 Unit: tablet Total Allowed Fills: 6 Fills Dispensed: 0 ferrous sulfate 325 mg oral enteric coated tablet 325 mg, By Mouth, Daily, # 30 tablet, Refills 0, Tot. Refills 0, Maintenance, 02/12/24 1:49:00 PM EST, Route to Pharmacy Electronically, [facility], Partial fill upon patient request if the prescription is for a schedule II opioid drug., 170, cm, 02/12/24 11:43:00 EST, Height, 103.1, kg, 02/09/24 19:13:00 EST, Dry Weight Start Date: 02/12/24 Stop Date: 03/13/24 Status: Ordered Medication Dispense Status: Completed Quantity: 30.0 Unit: tablet Total Allowed Fills: 1 Fills Dispensed: 0 Lantus Solostar Pen 100 units/mL subcutaneous solution = 12 units, Subcutaneous Injection, Daily at bedtime Start Date: 02/09/24 Status: Ordered Medication Dispense Status: Completed Total Allowed Fills: 1 Fills Dispensed: 0 losartan 50 mg oral tablet 1 tablet = 50 mg, By Mouth, Daily, # 30 tablet, 0 Refills, Maintenance, 02/09/24 2:56:00 PM EST, Tablet, Partial fill upon patient request if the prescription is for a schedule II opioid drug. Start Date: 02/09/24 Status: Ordered Medication Dispense Status: Completed Quantity: 30.0 Unit: tablet Total Allowed Fills: 1 Fills Dispensed: 0 metoprolol 25 mg oral tablet, extended release 25 mg, 1, tablet, By Mouth, Daily, # 30 tablet, Refills 0, Tot. Refills 0, Maintenance, 02/12/24 1:50:00 PM EST, Route to Pharmacy Electronically, [facility], Partial fill upon patient request if the prescription is for a schedule II opioid drug., 170, cm, 02/12/24 11:43:00 EST, Height, 103.1, kg, 02/09/24 19:13:00 EST, Dry Weight Start Date: 02/12/24 Status: Ordered Medication Dispense Status: Completed Quantity: 30.0 Unit: tablet Total Allowed Fills: 1 Fills Dispensed: 0 Multiple Vitamins with Folic Acid and Ubiquinone oral tablet 1 tablet, By Mouth, Daily, # 90 tablet, 0 Refills, Maintenance, 02/09/24 6:44:00 PM EST, Tablet, Partial fill upon patient request if the prescription is for a schedule II opioid drug. Start Date: 02/09/24 Status: Ordered Medication Dispense Status: Completed Quantity: 90.0 Unit: tablet Total Allowed Fills: 1 Fills Dispensed: 0 omeprazole 20 mg oral enteric coated capsule 1 capsule = 20 mg, By Mouth, 2 times a day, # 60 capsule, 0 Refills, Maintenance, 02/12/24 1:49:00 PM EST, EC Capsule, [facility] 3, Partial fill upon patient request if the prescription is for a schedule II opioid drug., 170, cm, 02/12/24 11:43:00 EST, Height, 103.1, kg, 02/09/24 19:13:00 EST, Dry Weight Start Date: 02/12/24 Status: Ordered Medication Dispense Status: Completed Quantity: 60.0 Unit: capsule Total Allowed Fills: 1 Fills Dispensed: 0 Ozempic 8 mg/3 mL (2 mg dose) subcutaneous solution = 2 mg, Subcutaneous Injection, Every week, in the abdomen, thigh, or upper arm, # 3 mL, 0 Refills,Maintenance, 02/09/24 2:56:00 PM EST, Solution, Partial fill upon patient request if the prescription is for a schedule II opioid drug. Start Date: 02/09/24 Status: Ordered Medication Dispense Status: Completed Quantity: 3.0 Unit: mL Total Allowed Fills: 1 Fills Dispensed: 0 Synjardy XR 10 mg-1000 mg oral tablet, extended release 1 tablet, By Mouth, Daily in AM, # 30 tablet, 0 Refills, Maintenance, 02/09/24 2:56:00 PM EST, ER Tablet, Partial fill upon patient request if the prescription is for a schedule II opioid drug. Start Date: 02/09/24 Status: Ordered Medication Dispense Status: Completed Quantity: 30.0 Unit: tablet Total Allowed Fills: 1 Fills Dispensed: 0 traZODone 50 mg oral tablet 50 mg, 1, tablet, By Mouth, Daily at bedtime, Refills 0, Maintenance, 02/09/24 2:57:00 PM EST, Partial fill upon patient request if the prescription is for a schedule II opioid drug. Start Date: 02/09/24 Status: Ordered Medication Dispense Status: Completed Total Allowed Fills: 1 Fills Dispensed: 0 Problem List Condition Confirmation Course Effective Dates Status Health St atus Informant COVID-19 1 Confirmed 02/22/24 Active Straining with stools Confirmed Active Diabetes Confirmed Active Encounter for diagnostic colonoscopy due to change in bowel habits Confirmed Active Blood in the stool Confirmed Active Helicobacter pylori (H. pylori) infection Confirmed 11/05/17 Active Obese class I Confirmed Active Heme positive stool Confirmed Active *[id number] Surplus Property Disposal Agent Montserrat Duncan Confirmed Active Tubular adenoma of colon 2018 x 2, repeat colonoscopy in 2022 Confirmed 11/05/17 Active 1Problem added by Discern Expert Social History Social History Type Response Smoking Status Former smoker; Tobac co user in household: Yes; Other: Ex-; entered on: 04/27/17 Sex Sex Representation Male (finding) Patient Care team information Care Team Personnel Name: Lucio Lebron RN Position: S RN Member Role: Primary Care Nurse Name: Brianda Hurtado RN Position: S RN Member Role: Primary Care Nurse Name: Teetee Hill RN Position: S RN Member Role: Primary Care Nurse Name: Iain Moura MD Position: [facility] Outreach Member Role: PCP Address: [address] [place] [id number] Telecom: Name: Kenzie Silva RN Position: [facility] RN Member Role: Primary Care Nurse Name: Rohan CEDENO, Teresa Jack Position: S RN Member Role: Primary Care Nurse Name: Lucero Sandoval RN Position: [facility] SN RN Member Role: Primary Care Nurse Care Team Related Persons Name: ERICKSON CHAND JR Name: ESTRADA CHAND Insurance Providers Guarantor name: ERICKSON CHAND [facility] Information #: 1 Payer: [facility] [employer] [employer] Payer Identifier: RADHA Member Number: [id number] Group Number: [id number] Subscriber Identifier: RADHA Relationship to Subscriber: self Coverage Type: Medicare Managed Care (Includes Medicare Advantage Plans) Coverage Verification Date: RADHA Telecom: NA Address: NA
--- OUTSIDE RECORDS SUMMARY | 2025-01-12 11:00 | XMS_ITS | Encounter Summary ---
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 I have eula rutherford 10/13/[address] you li ve. Do you have problems with any of the following? None of the above 10/13/2024 Food Insecurity Answer Date Recorded Within the past 12 months, y ou worried that your food would run out before you got money to buy more: Never True 10/13/2024 Within the past 12 months,th e food you bought just didn't last and you didn't have enough money to get more: Never True 10/2024 Transportation Answer Date Recorded In the past 12 months, has l ack of transportation kept you from medical appts, meetings, work or from getting things needed for daily living? No 10/13/2024 Utilities Answer Date Recorded In the past 12 months, has t he electric, gas, oil or water company threatened to shut off services in your home? No 10/13/2024 Depression Answer Date Recorded Patient Health Questionnaire-2 Score 0 10/13/2024 Internet Access Answer Date Recorded Internet Access Q1 Yes 10/13/2024 Internet Access Q2 Not on file 10/13/2024 Sex and Gender Information Value Date Recorded Sex Assigned at Male 01/05/2022 10:25 AM EDT Legal Sex Male 10:25 AM EDT Gender Identity Male 01/05/2022 10:25 AM EDT Sexual Orientation Straight 01/05/2022 10 :25 AM EDT documented as of this encounter Progress Notes * Milena Barnes RN - 01/12/2025 11:00 AM EST SUBJECTIVE: Rashid Mcdaniel is a 79 y.o. 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 Significant other Katelyn actively involved with call and assisted with translation as needed. Rashid Mcdaniel does not report adherence to Percocet 5 mg, take 1 tablet every 12 hours PRN, last refilled 12/29/2024. Pt states he usually takes 2 doses in a day, but as the weather has gotten colder, he has used 3 doses at times. The patient last took Percocet on: 01/12/2025 Medication is: 100% % effective at alleviating pain. 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 Reviewed his percocet order. Pt reminded to take medication as ordered. Advised to speak with his PCP if his pain issues have changed. Pt is aware he cannot get an early refill. Vital Signs Pain Score: 8 Pain Loc: Back Pain Education: Yes Additional pain site: knee's and left arm Last PCP visit: 10/13/2024 Controlled substance agreement signed: Controlled Substance Agreement 11/10/2024 PARKING RAMP ATTENDANT Tele Tier: 2 Current Medications[1] Smoking status: Denies ETOH use: Denies Illicit substances: Denies Marijuana use: Denies ASSESSMENT: No diagnosis found. PLAN: Information on pain group given: Previously discussed Information on acupuncture given: Previously discussed Narcan education provided: Previously discussed Narcan prescription: active Will update PCP with Percocet count Rashid Mcdaniel will continue taking medication as prescribed and follow up at the next Tele PARKING RAMP ATTENDANT visit or sooner if needed. Rashid Mcdaniel has verbalized understanding of care plan. Future Appointments Date Time Provider Department Center 01/12/2025 11:00 AM Milena Barnes RN [facility] 01/19/2025 4:00 PM Tricia King MD [facility] 02/07/2025 9:30 AM Iain Moura MD [facility] 04/20/2025 10:30 AM Milena Barnes RN [facility] Milena Barnes RN [1] Current Outpatient Medications: Alcohol Swabs (B-D SINGLE USE SWABS REGULAR) pads, Use as directed, up to 4 times daily., Disp: 100each, Rfl: 11 atorvastatin (Lipitor) 20 MG tablet, Take 1 tablet (20 mg) by mouth at bedtime., Disp: 90 tablet, Rfl: 3 Continuous Glucose Manager Baby (FreeStyle Fran 2 Lutz) device, Scan sensor every 8 hours, Disp: 1 each, Rfl: 0 Continuous Glucose Sensor (FreeStyle Fran 2 Plus Sensor) misc, 1 each every 8 (eight) hours. Apply1 sensor every 15 days as directed for CGM. Continue to scan Q8H, at minimum, to capture 24 hr BG data., Disp: 2 each, Rfl: 11 DULoxetine (Cymbalta) [address] capsule, Do not crush or chew.TAKE 1 CAPSULE BY MOUTH EVERY MORNING DO NOT BREAK, CRUSH, DISSOLVE OR CHEW, Disp: 30 capsule, Rfl: 11 Eliquis 5 MG tablet, Take 1 tablet by mouth 2 times daily., Disp: , Rfl: empagliflozin-metFORMIN ER (Synjardy XR) 10-1000 MG 24 hr tablet, Take 1 tablet by mouth with breakfast., Disp: 90 tablet, Rfl: 3 ferrous sulfate 325 (65 Fe) MG EC tablet, Take 1 tablet by mouth Once per day., Disp: , Rfl: glucose 4 g chewable tablet, Chew 4 tablets (16 g) if needed for low blood sugar. (BG < 70 MG/DL). Repeat as needed & as directed., Disp: 40 tablet, Rfl: 5 glucose blood (FreeStyle Precision Bob Test) test strip, Use as needed to check blood glucose readings by subcutaneous route, Disp: 100 each, Rfl: 11 insulin glargine (Lantus SoloStar) 100 UNIT/ML pen, Inject 12 Units under the skin at bedtime., Disp: 15 mL, Rfl: 5 metoprolol succinate XL (Toprol-XL) 25 MG 24 hr tablet, Take 1 tablet (25 mg) by mouth Once per day., Disp: 90 tablet, Rfl: 3 naloxone (Narcan) 4 mg/0.1 mL nasal spray, Administer 1 spray (4 mg) into affected nostril(s) if needed for opioid reversal. May repeat every 2-3 minutes if needed, alternating nostrils, until medical assistance becomes available., Disp: 2 each, Rfl: 2 omeprazole (PriLOSEC) [address] capsule, Take 1 capsule by mouth before breakfast and before eveningmeal. Do not crush or chew., Disp: , Rfl: oxyCODONE-acetaminophen (Percocet) 5-325 MG tablet, Take 1 tablet by mouth every 12 (twelve) hours if needed for severe pain for up to 28 days. Do not start before December 29, 2024., Disp: 56 tablet,Rfl: 0 Semaglutide, 2 MG/DOSE, (Ozempic, 2 MG/DOSE,) 8 MG/3ML solution pen-injector, Inject 0.75 mL (2 mg)under the skin 1 (one) time per week., Disp: 3 mL, Rfl: 11 sildenafil (Viagra) 100 MG tablet, TAKE 1 TABLET BY MOUTH 1 HR BEFORE SEXUAL RELATIONS ONCE DAILY NEEDED, Disp: 10 tablet, Rfl: 0 Sure Comfort Pen [place] 31G X 5 MM misc, Use as instructedUSE DIRECTED EVERY DAY WITH INSULIN, Disp: 100 each, Rfl: 3 traZODone (Desyrel) 50 MG tablet, TAKE 1 TABLET BY MOUTH EVERY DAY AT BEDTIME, Disp: 90 tablet, Rfl: 1 TRUEplus Lancets 33G misc, USE TO TEST BLOOD SUGAR 3 times DAILY, Disp: 100 each, Rfl: 11 Ventolin HFA 108 (90 Base) MCG/ACT inhaler, Inhale 2 puffs Every 4-6 hours as needed., Disp: , Rfl: documented in this encounter Plan of Treatment Upcoming Encounters Date Type Department Care Team (Late st Contact Info) Description 01/19/2025 4:00 PM EST Office Visit [address] [phone] Tricia King MD [address] [place] [phone] 02/07/2025 9:30 AM EST Office Visit [address] [address] Iain Moura MD [address] [place] [address] [phone] 04/20/2025 10:30 AM EST Telemedicine [address] [address] Milena Barnes, PAO documented as of this encounter Goals Goal Patient Goal Type Associated Problems Recent Progress Patient-Stated? Author Hemoglobin A1c < 7.5 Result Component 6.7( 10:12 AM EDT) No Ysabel Rivas, Toney Note: Per ADA higher A1c goal would be appropriate given age. Will target 7.5% (over <8.0%) given cardiac hx (CAD, hx of [place]) Record your blood sugar as directed Result Component No Ysabel Rivas, PharmD Note: Use CGM, ensuring sensor is scanned at least once every 8 hours to capture 24H data. Check BG manually, as directed. documented as of this encounter Visit Diagnoses Diagnosis Long-term current use of opiate analgesic Encounter for long-term (current) use of other medications documented in this encounter Additional Health Concerns Assessment Noted Time PHQ-9 Depression Total Score: 8 10/14/19 25 10:39 AM EDT documented as of this encounter Care Teams Certified Nurse Midwife Relationship Specialty Start Date End Date Iain Moura MD [address] [place] [address], [place] [address] PCP - General Family Medicine 04/15/15 Ysabel Rivas PharmD [address] [place] [address] Pharmacist Internal Medicine 10/04/23 [facility] 02/23/24 documented as of this encounter
--- OUTSIDE RECORDS SUMMARY | 2025-01-16 17:01 | XMS_ITS | Encounter Summary ---
Author Organization [employer] Address [address] [place] [address] [address] [place] [address] Care Team Providers Care Superintendent Pipelines Name Role Phone Name, Iain WHITESIDE Primary Care Provider [phone] Ysabel Rivas PharmD Unavailable Reason for Visit * Reason Comments Med Refill Encounter Details Date Type Department Care Team (Late st Contact Info) Description 05/13/2022 Refill [facility] [address] [place] [address] [phone] Name, MD Iain [address] [place] [phone] Coronary artery disease involving gakona coronary artery of gakona heart, unspecified whether angina present (Primary Dx) [...] Description 01/19/2025 4:00 PM EST Office Visit [facility] [address] [place] [address] [phone] Tricia King MD [address] [place] [phone] 02/07/2025 9:30 AM EST Office Visit [facility] [address] [place] [phone] Name[place] [phone] 04/20/2025 10:30 AM EST Telemedicine [facility] [place] [address] Milena Barnes, RN documented as of this encounter Visit Diagnoses Diagnosis Coronary artery disease involving gakona coronary artery of gakona heart, unspecified whether angina present- Primary documented in this encounter Care Teams Superintendent Pipelines Relationship Specialty Start Date End Date [place] [address] PCP - General Family Medicine 04/15/15 [place] [address] Pharmacist Internal Medicine 10/04/23 [facility] 02/23/24 documented as of this encounter
--- OUTSIDE RECORDS SUMMARY | 2025-01-16 17:01 | XMS_ITS | Encounter Summary ---
Author Organization [employer] Address [address] [facility] [address] [place] [address] Care Team Providers Care Broiler Manager Name Role Phone Name, Iain WHITESIDE Primary Care Provider [phone] Ysabel Rivas PharmD Unavailable [phone] Reason for Visit * Reason Onset Date Comments Referral 11/09/2024 Encounter Details Date Type Department Care Team ([facility] st Contact Info) Description 11/09/2024 Telephone [facility] [address] [place] [address] Name, MD Iain [address] [place] [address] Referral Social History Tobacco Use Types Packs/Day Years [...] encounter Miscellaneous Notes * Telephone Encounter - Leela Barakat RN - 11/10/2024 9:03 AM EDT Tc to pt in regards to ne referral request. Pt reports pt is supposed to be tested for a wheelchair and [facility] reported they cannot provide that service. is requestinga new referral to an office that can. Advised we'll send a message to the PCP and call them tolet them know what they recommend. verbalized understanding and message sent to PCP for review. * Telephone Encounter - Kassandra Rudd - 11/09/2024 12:11 PM EDT TC from spouse stating she called [facility], and they informed her they no longer provide the needed services. Spouse is requesting a referral. Contact pt at [phone] documented in this encounter Plan of Treatment Upcoming Encounters Date Type Department Care Team (Late st Contact Info) Description 01/19/2025 4:00 PM EST Office Visit [facility] [address] [place], [place] [phone] Tricia King MD [place], [place] 02/07/2025 9:30 AM EST [facility] [place] [place] [phone] Name, MD Iain [place], [place] 04/20/2025 10:30 AM EST Telemedicine [facility] [address] [place], [place] [phone] Milena Barnes RN documented as of this encounter Goals Goal Patient Goal Type Associated Problems Recent Progress Patient-Stated? Author Hemoglobin A1c < 7.5 Result Component 6.7( 10:12 AM EDT) No Ysabel Rivas, PharmDagoberto Note: Per ADA higher A1c goal would be appropriate given age. Will target 7.5% (over <8.0%) given cardiac hx (CAD, hx of [place]) Record your blood sugar as directed Result [...] documented as of this encounter Care Teams Broiler Manager Relationship Specialty Start Date End Date Iain Moura MD [facility] [place] [place] PCP - General Family Medicine 04/15/15 Ysabel Rivas, EricD [address] [place], [place] [phone] Pharmacist Internal Medicine 10/04/23 [facility] 02/23/24 documented as of this encounter
--- OUTSIDE RECORDS SUMMARY | 2025-01-16 17:01 | XMS_ITS | Encounter Summary ---
Author Organization [employer] Address [address] [place] [address] [address] [place] [address] Care Team Providers Care Display Artist Name Role Phone Name, Iain WHITESIDE Primary Care Provider Ysabel Rivas PharmD Unavailable [phone] Encounter Details Date Type Department Care Team (Late st Contact Info) Description 03/11/2022 Orders Only [facility] [address] [place] [address] Joanie Tillman LPN Social History Tobacco Use [...] Description 01/19/2025 4:00 PM EST Office Visit [address] [address] Tricia King MD [address] [place] [phone] 02/07/2025 9:30 AM EST Office Visit [address] [address] Iain Moura MD [address] [place] [phone] 04/20/2025 10:30 AM EST Telemedicine [address] [address] Milena Barnes, RN documented as of this encounter Visit Diagnoses Not on filedocumented in this encounter Care Teams Display Artist Relationship Specialty Start Date End Date Name, MD Iain [address] [place] [address] PCP - General Family Medicine 04/15/15 Ysabel Rivas PharmD [address] [place] [address] Pharmacist Internal Medicine 10/04/23 [facility] 02/23/24 documented as of this encounter
--- OUTSIDE RECORDS SUMMARY | 2025-01-16 17:01 | XMS_ITS | Encounter Summary ---
Author Organization [employer] Address [address] [place] [address] [place] [address] Care Team Providers Care Gluer Machine Operator Name Role Phone Name, Iain WHITESIDE Primary Care Provider Ysabel Rivas PharmD Unavailable [phone] Reason for Visit * Reason Comments Med Refill Encounter Details Date Type Department Care Team (Late st Contact Info) Description 04/09/2022 Refill [facility] [address] [place] [address] [phone] Name, MD Iain [address] [place] [address] [phone] Social History Tobacco Use Types Packs/Day Years [...] Description 01/19/2025 4:00 PM EST Office Visit [facility] [address] [place] [address] Tricia King MD [address] [place], [place] [phone] 02/07/2025 9:30 AM EST Office Visit [facility] [place] [address] Name, MD Iain [facility] [address] 04/20/2025 10:30 AM EST Telemedicine [address] [address] Milena Barnes, PAO documented as of this encounter Visit Diagnoses Not on filedocumented in this encounter Care Teams Gluer Machine Operator Relationship Specialty Start Date End Date Name, [place] [address] PCP - General Family Medicine 04/15/15 Ysabel Rivas PharmD [address] [place] [phone] Pharmacist Internal Medicine 10/04/23 [facility] 02/23/24 documented as of this encounter
--- OUTSIDE RECORDS SUMMARY | 2025-01-16 17:01 | XMS_ITS | Encounter Summary ---
Author Organization [employer] Address [address] [facility] 7t [place] [address] Care Team Providers Care Hot Packer Name Role Phone Name, Iain WHITESIDE Primary Care Provider [phone] Ysabel Rivas PharmD Unavailable [phone] Reason for Visit * Reason Onset Date Comments Hospital Follow-up 08/13/2023 Encounter Details Date Type Department Care Team ([facility] st Contact Info) Description 08/13/2023 Telephone [facility] [address] [place] [address] Name, MD Iain [address] [place], [place] [phone] Hospital Follow-up Social History Tobacco Use Types [...] EDT Tc from November with [facility] Still Operator requesting a HDF appt. Hospital: [facility] Date of admission: 08/09 Discharge date: 08/11 Diagnosed: Hyperkalemia documented in this encounter Plan of Treatment Upcoming Encounters Date Type Department Care Team (Late st Contact Info) Description 01/19/2025 4:00 PM EST Office Visit [facility] [address] [place] [address] Tricia King MD [address] [place] [phone] 02/07/2025 9:30 AM EST Office Visit [facility] [address] [place] [address] Name, MD Iain [address] [place] [address] 04/20/2025 10:30 AM EST Telemedicine [facility] [address] [place] [address] Milena Barnes RN documented as of this encounter Visit Diagnoses Not on filedocumented in this encounter Additional Health Concerns Assessment Noted Time PHQ-9 Depression Total Score: 0 08/29/19 23 9:29 AM EDT documented as of this encounter Care Teams Hot Packer Relationship Specialty Start Date End Date NameIain MD [address] [place] [address] PCP - General Family Medicine 04/15/15 Ysabel Rivas PharmD [address] [place] [address] Pharmacist Internal Medicine 10/04/23 [facility] 02/23/24 documented as of this encounter
--- OUTSIDE RECORDS SUMMARY | 2025-01-16 17:01 | XMS_ITS | Clinical Summary ---
Author Organization [address] [place] [address] [place] [phone] Phone Care Team Providers Care Industrial Analyst Name Role Phone Name, Iain WHITESIDE Primary Care Provider [phone] Medical History Medical History Date Comments Asthma [...] diabetes mellitus, co ntrolled, with renal complications ([facility]/HCC V24, [facility]/HCC V28) 05/09/2013 DX:Type 2 diabetes mellitus, controlled, with renal complications ([facility]); COMMENT: GFR 58 on 04/22/13. Family History Medical History Relation Name Comments Blindness Neg Hx Cataracts Neg Hx Glaucoma Neg Hx Macular degeneration Neg Hx Strabismus Neg Hx Relation Name Status Comments Father (Age 106) Healthy Mother (Age 98) Healthy Social History Tobacco Use Types Packs/Day Years Used Date Smoking Tobacco: Former Cigarettes 0.5 Q uit: 04/24/2009 Smokeless Tobacco: Never Alcohol [...] series) 05/11/2019 Cholesterol Screening (Lipid Panel) 02/04/2022 Falls Risk Assessment 02/04/2022 Medicare Annual Wellness Visit 02/04/2022 Social Influencers of Health Screening 02/04/2022 Diabetes: Annual Urine Albumin-Creatinine Ratio (uACR) 02/12/2022 Diabetes: Blood Sugar Contro l Test (HGBA1C) 02/12/2022 Hypertension/CHF/CAD Annual BMP Blood Test 02/12/2022 Depression Screening 03/08/2024 COVID-19 Vaccine ( - 2024-2 6 season) 2024 Influenza Vaccine (#1) 2024 2, 11/11/2010, 12/20/2009 HIB Vaccines Aged Out No [...] on patient's age to complete this topic Insurance MEDICAID - [place] [facility] [employer] [facility] [employer] Member Subscriber Plan / Payer (Ef fective for All Dates) Name:Erickson Mcdaniel Relation to Subscriber:Self Name:Erickson Mcdaniel Payer ID:[id number] Group ID:Not on file Type:Not on file Address: [address] [place] [id number] Care Teams Industrial Analyst Relationship Specialty Start Date End Date Name, MD Iain [address] [place], [place] PCP - General Internal Medicine 09/26/14
--- OUTSIDE RECORDS SUMMARY | 2025-01-16 17:01 | XMS_ITS | Clinical Summary ---
Author Organization [employer] Address [address] [facility] 7t [place] [address] Care Team Providers Care Slip Cover Sewer Name Role Phone Name, Iain WHITESIDE Primary Care Provider [phone] Ysabel Rivas PharmD Unavailable [phone] Allergies Active Allergy Reactions Criticality Noted Date Comments Bee Venom 04/10/2013 Hydrocodone-Acetaminophen Nausea And Vomiting 0 09/05/2009 Medications Ventolin HFA 108 (90 Base) MCG/ACT inhaler Inhale 2 puffs Every 4-6 hours as needed. 022 Active TRUEplus Lancets 33G misc USE TO TEST BLOOD SUGAR 3 times DAILY 100 each 11 024 Active Alcohol Swabs (B-D SINGLE USE SWABS REGULAR) padsIndication s:Type 2 diabetes mellitus with hyperglycemia, unspecified whether watermelon inspector insulin use (HCC) Use as directed, up to 4 times daily. 100 each 11 024 Active Sure Comfort Pen [place] 31G X 5 MM misc Use as instructedUSE DIRECTED EVERY DAY WITH INSULIN 100 each 3 024 Active Eliquis 5 MG tablet Take 1 tablet by mouth 2 times daily. 024 Active ferrous sulfate 325 (65 Fe) MG EC tablet Take 1 tablet by mouth Once per day. 024 Active omeprazole (PriLOSEC) [address] capsule Take 1 capsule by mouth before breakfast and before evening meal. Do not crush or chew. Active metoprolol succinate XL (Toprol-XL) 25 MG 24 hr tablet Take 1 tablet (25 mg) by mouth Once per day. 90 tablet 3 025 Active atorvastatin (Lipitor) 20 MG tabletIndicati ons:Coronary artery disease involving [place] coronary artery of [place] heart, unspecified whether angina present,Type 2 diabetes mellitus with other specified complication, without long-term current use of insulin ([facility]) Take 1 tablet (20 mg) by mouth at bedtime. 90 tablet 3 Active empagliflozin- metFORMIN ER (Synjardy XR) 10-1000 MG 24 hr tabletIndicati ons:Type 2 diabetes mellitus with other specified complication, without long-term current use of insulin ([facility]) Take 1 tablet by mouth with breakfast. 90 tablet 3 025 2025 Active glucose 4 g chewable tabletIndicati ons:Type 2 diabetes mellitus with other specified complication, without long-term current use of insulin ([facility]) Chew 4 tablets (16 g) if needed for low blood sugar. (BG < 70 MG/DL). Repeat as needed & as directed. 40 tablet 5 Active insulin glargine (Lantus SoloStar) 100 UNIT/ML penIndications :Type 2 diabetes mellitus with other specified complication, without long-term current use of insulin ([facility]) Inject 12 Units under the skin at bedtime. 15 mL Active Semaglutide, 2 MG/DOSE, (Ozempic, 2 MG/DOSE,) 8 MG/3ML solution pen-injectorIn dications:Type 2 diabetes mellitus with other specified complication, without long-term current use of insulin ([facility]) Inject 0.75 mL (2 mg) under the skin 1 (one) time per week. 3 mL Active sildenafil (Viagra) 100 MG tablet TAKE 1 TABLET BY MOUTH 1 HR BEFORE SEXUAL RELATIONS ONCE DAILY NEEDED 10 tablet Active Continuous Glucose Sensor (FreeStyle Fran 2 Plus Sensor) miscIndication s:Type 2 diabetes mellitus with other specified complication, without long-term current use of insulin ([facility]) 1 each every 8 (eight) hours. Apply 1 sensor every 15 days as directed for CGM. Continue to scan Q8H, at minimum, to capture 24 hr BG data. 2 each Active glucose blood (FreeStyle Precision Bob Test) test stripIndicatio ns:Type 2 diabetes mellitus with other specified complication, without long-term current use of insulin ([facility]) Use as needed to check blood glucose readings by subcutaneous route 100 each Active Continuous Glucose Sprinkler Inspector (FreeStyle Fran 2 [place]) deviceIndicati ons:Type 2 diabetes mellitus with other specified complication, without long-term current use of insulin ([facility]) Scan sensor every 8 hours 1 each Active naloxone (Narcan) 4 mg/0.1 mL nasal spray Administer 1 spray (4 mg) into affected nostril(s) if needed for opioid reversal. May repeat every 2-3 minutes if needed, alternating nostrils, until medical assistance becomes available. 2 each 2 Active traZODone (Desyrel) 50 MG tabletIndicati ons:Depression , unspecified depression type TAKE 1 TABLET BY MOUTH EVERY DAY AT BEDTIME 90 tablet 1 Active DULoxetine (Cymbalta) [address] capsule Do not crush or chew.TAKE 1 CAPSULE BY MOUTH EVERY MORNING DO NOT BREAK, CRUSH, DISSOLVE OR CHEW 30 capsule Active oxyCODONE-acet aminophen (Percocet) 5-325 MG tabletIndicati ons:Chronic pain syndrome Take 1 tablet by mouth every 12 (twelve) hours if needed for severe pain for up to 28 days. Do not start before December 29, 2024. 56 tablet 025 2024 Active oxyCODONE-acet aminophen (Percocet) 5-325 MG tabletIndicati ons:Chronic pain syndrome Take 1 tablet by mouth every 12 (twelve) hours if needed for severe pain for up to 28 days. Do not start before November 30, 2024. 56 tablet 025 2024 Discontinued(R eorder (will not trigger notification to Pharmacy)) Active Problems Problem Noted Date Diagnosed Date Long-term current use of opiate analgesic 2024 Pericarditis 04/04/2024 Paroxysmal A-fib 04/04/2024 Class 1 obesity 02/28/2024 Gastrointestinal hemorrhage 08/25/2022 Perforation of tympanic membrane 08/25/2022 Headache 03/20/2022 Portal hypertensive gastropathy (CMS/HCC) (CMS/H CC) 03/20/2022 AVM (arteriovenous malformation) of colon 2022 Cirrhosis of liver (CMS/HCC) 12/12/2021 Overview (03/25/2023): EGD/colonoscopy 2019: EGD with [...] pylori infection 11/05/2017 Overview (03/25/2023): Treated successfully 2018 by [facility] Tubular adenoma of colon 11/05/2017 Respiratory crackles 05/31/2017 Depressive disorder 06/18/2015 Onychomycosis 05/13/2015 BPH (benign prostatic hyperplasia) 07/04/2014 Obstructive sleep apnea 02/20/2014 CKD (chronic kidney disease) stage 3, GFR 30-59 ml/min ([facility]) 05/09/2013 Overview (08/25/2022): GFR 58 04/2013 Coronary artery disease 04/06/2013 Overview (03/25/2023): Patient [place] cardiac [place] [facility] [place] minimal coronary irregularities Hemorrhoids 04/06/2013 Obesity 04/06/2013 Old MS (myocardial infarction) 04/06/2013 Type 2 diabetes mellitus 06/02/2011 Overview (08/25/2022): GFR 58 on 04/22/13. NS/ Cataracts out side eye exam 12/06/12 Dr. Walker ED urology consult 12/29/12 Kezia Eduardo PA-C. Hyperlipidemia 06/18/2010 COPD (chronic obstructive pulmonary disease) 07/2009 Back pain 06/10/2009 Asthma 05/01/2009 Hypertension 05/01/2009 Resolved Problems Problem Noted Date Diagnosed Date Resolved Date Disease due to severe acute respiratory syndrome coronavirus 2 (SARS-CoV-2) 02/22/2024 08/0 10/2024 Overview (04/03/2024): Problem added by Discern Expert Diarrhea 08/25/2022 09/17/2022 Straining with stools 08/25/20222023 History of colonoscopy 03/11/202203/25 Iron deficiency anemia 08/08/201809/17 Cough 05/31/2017 03/25/2023 Malaise 05/31/2017 09/17/2022 Occult blood in stools 03/30/201709/17 Diabetes mellitus type 2, uncontrolled 06/18/2015 03/25/2023 Late effect of stroke 04/06/20132022 Overview (08/25/2022): history of stroke with residual left arm weakness Encounters Date Type Department Care Team Description 01/12/2025 11:00 AM EST Telemedicine [facility] [address] [place] [address] Milena Barnes, RN Long-term current use of opiate analgesic 01/12/2025 Telephone [facility] [address] [place] [address] Milena Barnes RN 01/12/2025 Travel 01/12/2025 Telephone [facility] [address] [place] [address] Iain Moura MD Call Back Request 01/05/2025 Telephone [facility] [address] [place] [address] Iain Moura MD Prior Authorization 12/26/2024 Refill [facility] [address] [place] [address] Iain Moura MD Chronic pain syndrome 12/05/2024 Refill [facility] [address] [place] [address] Iain Moura MD 11/29/2024 Telephone [facility] [place] [address] Iain Moura MD Med Refill 11/27/2024 Refill [facility] [place] [address] Iain Moura MD Chronic pain syndrome 11/15/2024 Telephone [facility] [place] [address] Iain Moura MD 11/12/2024 Refill [facility] [place] [address] Iain Moura MD Depression, unspecified depression type 11/10/2024 9:00 AM EDT Telemedicine [facility] [place] [address] Milena Barnes, RN Long-term current use of opiate analgesic 11/10/2024 Refill [facility] [place] [address] Milena Barnes RN 11/10/2024 Travel 11/09/2024 Telephone [facility] [place] [address] Iain Moura MD Referral 11/03/2024 Telephone [facility] [place] [address] Iain Moura MD Med Refill (Pt requesting sensors doesn't have any left ) 10/30/2024 Refill [facility] [place] [address] Iain Moura MD Type 2 diabetes mellitus with other specified complication, without long-term current use of insulin ([facility]) (Primary Dx); Type 2 diabetes mellitus with other specified complication, without long-term current use of insulin (CMS/HCC) 10/24/2024 Refill [facility] [place] [address] Iain Moura MD Chronic pain syndrome from Last 3 Months Immunizations Immunization Administration Dates Next Due Hep B, adult [...] Sign Reading Time Taken Comments Blood Pressure 132/62 10/13/2024 10:08 AM EDT Pulse 52 10/13/2024 10:08 AM EDT Temperature 36 C (96.8 F) 10/13/2024 10:08 AM EDT Respiratory Rate 14 10/13/2024 10:08 AM EDT Oxygen Saturation 98% 10/13/2024 10:08 AM EDT Inhaled Oxygen Concentration - - Weight 93.3 kg (205 lb 9.6 oz) 10/13/2024 10:08 AM EDT Height 177.8 cm (5' 10 ) 10/13/2024 10:08 AM EDT Body Mass Index 29.5 10/13/2024 10:08 AM EDT Plan of Treatment Upcoming Encounters Date Type Department Care Team (Late st Contact Info) Description 01/19/2025 4:00 PM EST Office Visit [facility] [address] [place] [address] Tricia King MD [address] [place] [address] 02/07/2025 9:30 AM EST Office Visit [facility] [address] [place] [phone] Name, MD Iain [address] [place] [address] 04/20/2025 10:30 AM EST Telemedicine [facility] [address] [place] [address] Milena Barnes, RN Health Maintenance Due Date Last Done Comments Diabetes: Urine Protein Screening 03/26/2024 03/26/2023, 06/24/2021, 05/26/2021, Additional history exists COVID-19 Vaccine ( season) 2024 12/01/2023, 01/19/2022, 07/02/2021, Additional history exists Influenza Vaccine (#1) 2024 , 03/25/2023, 12/07/2022, Additional history exists Diabetes: Foot Exam 11/30/2024 12/01/2023, 12/01/2023, 12/01/2023, Additional history exists Diabetes: Hemoglobin A1C 04/15/2025 025, 08/09/2024, 03/07/2024, Additional history exists Eye Exam 05/24/2025 05/25/2023 Lipid Panel 08/09/2025 08/09/2024, 12/06, 12/07/2022, Additional history exists Alcohol/Substance Use Screening 10/13/2025 10/13/2024 Depression Screening 10/13/2025 10/13/2024, 10/14/19 SDOH Screening 10/13/2025 10/13/2024 Tobacco Screening 10/13/2025 10/13/2024 DTaP/Tdap/Td Vaccines (2 - Td or Tdap) 02/11/2026 02/12/2016 Zoster Vaccines Completed 04/15/2021, 02/03/2021 Pneumococcal Vaccine: 50+ Years Completed 09/02/2023, 12/22/2016, 12/11/2015 Hepatitis B Vaccines Completed 11/03/2023, 03/25/2023, 01/19/2022 RSV Patients and Patients Aged 60 years [...] Component 6.7( 10:12 AM EDT) No Ysabel Rivas PharmD Note: Per ADA higher A1c goal would be appropriate given age. Will target 7.5% (over <8.0%) given cardiac hx (CAD, hx of [place]) Record your blood sugar as directed Result Component No Ysabel Rivas PharmD Note: Use CGM, ensuring sensor is scanned at least once every 8 hours to capture 24H data. Check BG manually, as directed. Procedures Procedure Name Priority Date/Time Associated Diagnosis Comments POCT GLYCATED HEMOGLOBIN, TOTAL Routine 10/13/2024 10:12 AM EDT Type 2 diabetes mellitus with other specified complication, without long-term current use of insulin ([facility]) LIPID PANEL, STANDARD Routine 08/09/2024 10:26 AM EDT HM DIABETES EYE EXAM Routine 05/25/2023 ALBUMIN, RANDOM URINE W/CREATININE Routine 03/26/2023 9:53 AM EST Type 2 diabetes mellitus with other specified complication, without long-term current use of insulin ([facility]) from Last 3 Months or Most Recently Relevant to Health Maintenance Results * (ABNORMAL) POCT HGB A1C (10/13/2024 10:12 AM EDT) Hemoglobin A1C 6.7(A) 4.0 - 5.7 % QC Media Lot # [id number] Lot# Expiration Date Blood 10/13/2024 10:1 2 AM EDT us Iain Moura MD POINT OF CARE TEST ENTER/EDIT OR DERABLES Final Result * (ABNORMAL) Lipid Panel, Standard (08/09/2024 10:26 AM EDT) Triglycerides 107 <150 mg/dL [facility] Comment:Desirable Triglyceri de: less than 150 mg/dLBorderline High Triglyceride 150-199 mg/dLHigh Triglyceride: 200-499 mg/dLVery High Triglyceride: greater than or equal to 5OO mg/dL Cholesterol 116 <200 mg/dL [facility] Comment:Desirable Cholestero l: less than 200 mg/dLBorderline High Cholesterol: 200-239 mg/dLHigh Cholesterol: greater than 239 mg/dL LDL Cholesterol Calculated 62 <100 mg/dL [facility] Comment:Desirable LDL: less than 100 mg/dLNear Optimal/Above Optimal LDL: 110- 129 mg/dLBorderline High LDL: 130-159 mg/dLHigh LDL: 160-189 mg/dLVery High LDL: greater than or equal to 190 mg/dL HDL Cholesterol 33(L) >40 mg/dL [facility] Comment:Desirable HDL: great er than 40 mg/dL Note: This HDL assay may give artificially low results in patients with liver disease. 08/09/2024 10:2 6 AM EDT 08/09/2024 10:26 AM EDT Generic External Data Provider LAB BLOOD ORDERAB LES Final Result [facility] [address] [place] [address] [phone] * Hm Diabetes Eye Exam (05/25/2023) Eye Exam Normal Normal, BIRADS 0 , BIRADS 1 , BIRADS 2, BIRADS 3 , BIRADS 4+ us Iain Moura MD HEALTH MAINTENANCE Final Result * (ABNORMAL) Albumin, Random Urine W/Creatinine (03/26/2023 9:53 AM EST) Creatinine, Urine 295.56 mg/dL [facility] Microalbumin Urine 140.0 mg/L H [facility] Microalbum Creatinine Ratio Ur 47.3(H) <30 ug/mg cr [facility] Comment:Albumin/Creatinine R atio Reference Ranges: Normal: < 30 ug/mg creatinine Microalbuminuria: 30 - 300 ug/mg creatinineClinical Albuminuria: > 300 ug/mg creatinine Urine (Urine, Random) 03/26/2023 9:53 AM EST 03/26/2023 11:15 AM EST us Iain Moura MD LAB URINE ORDERABLES Final Resul t [facility] [address] [place] [address] [phone] from Last 3 Months or Most Recently Relevant to Health Maintenance Insurance [facility] [employer] (HMO D-SNP) [place] [id number] Care Teams Slip Cover Sewer Relationship Specialty Start Date End Date Name, MD Iain [address] [place] [address] PCP - General Family Medicine 04/15/15 Ysabel Rivas, EricD [address] [place] [address] Pharmacist Internal Medicine 10/04/23 [facility] 02/23/24
--- OUTSIDE RECORDS SUMMARY | 2025-01-16 17:01 | XMS_ITS | Encounter Summary ---
Author Organization [employer] Address [address] [facility] 7t [place] [address] Care Team Providers Care Bundle Wrapper Name Role Phone Name, Iain WHITESIDE Primary Care Provider [phone] Ysabel Rivas PharmD Unavailable [phone] Encounter Details Date Type Department Care Team ([facility] st Contact Info) Description 01/07/2024 Telephone [facility] [address] [place], [place] [phone] Name, MD Iain [address] [place] [address] Social History Tobacco Use Types Packs/Day Years [...] Description 01/19/2025 4:00 PM EST Office Visit [facility] [address] [place] [phone] Tricia King MD [address] [place] [address] 02/07/2025 9:30 AM EST Office Visit [address] [phone] Name, MD Iain [address] [place] [address] 04/20/2025 10:30 AM EST Telemedicine [address] [address] Milena Barnes RN documented as of this encounter Goals Goal Patient Goal Type Associated Problems Recent Progress Patient-Stated? Author Hemoglobin A1c < 7.5 Result Component 6.7( 10:12 AM EDT) No Ysabel Rivas, PharmD Note: Per ADA higher A1c goal would be appropriate given age. Will target 7.5% (over <8.0%) given cardiac hx (CAD, hx of [place]) Record your blood sugar as directed Result [...] documented as of this encounter Care Teams Bundle Wrapper Relationship Specialty Start Date End Date Name, MD Iain [address] [place], [place] [phone] PCP - General Family Medicine 04/15/15 Ysabel Rivas, Toney [address] [place] [address] Pharmacist Internal Medicine 10/04/23 [facility] 02/23/24 documented as of this encounter
--- OUTSIDE RECORDS SUMMARY | 2025-01-16 17:01 | XMS_ITS | Encounter Summary ---
Author Organization [employer] Address 75 [facility] 7t [place] [address] Care Team Providers Care City Plant Supervisor Name Role Phone Name, Iain WHITESIDE Primary Care Provider [phone] Ysabel Rivas PharmD Unavailable [phone] Encounter Details Date Type Department Care Team ([facility] st Contact Info) Description 01/12/2025 Telephone [facility] [address] [place] [address] Milena Barnes RN Social History Tobacco Use Types Packs/Day Years [...] encounter Miscellaneous Notes * Telephone Encounter - Milena Barnes RN - 01/12/2025 10:30 AM EST 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 Pt states he usually takes 2 doses in a day, but as the weather has gotten colder, he has used 3 doses at times. Reviewed his percocet order. Pt reminded to take medication as ordered. Advised to speak with his PCP if his pain issues have changed. Pt is aware he cannot get an early refill. documented in this encounter Plan of Treatment Upcoming Encounters Date Type Department Care Team (Late st Contact Info) Description 01/19/2025 4:00 PM EST Office Visit [facility] [address] [place] [address] Tricia King MD [address] [place] [address] 02/07/2025 9:30 AM EST Office Visit [facility] [address] [place] [address] Name, MD Iain [address] [place] [address] 04/20/2025 10:30 AM EST Telemedicine [facility] [address] [place] [address] Milena Barnes RN documented as of this encounter Goals Goal Patient Goal Type Associated Problems Recent Progress Patient-Stated? Author Hemoglobin A1c < 7.5 Result Component 6.7( 10:12 AM EDT) No Ysabel Rivas, Toney Note: Per ADA higher A1c goal would be appropriate given age. Will target 7.5% (over <8.0%) given cardiac hx (CAD, hx of [place]) Record your blood sugar as directed Result [...] documented as of this encounter Care Teams City Plant Supervisor Relationship Specialty Start Date End Date Name, MD Iain [address] [place] [address] PCP - General Family Medicine 04/15/15 Ysabel Rivas PharmD [address] [place] [address] Pharmacist Internal Medicine 10/04/23 [facility] 02/23/24 documented as of this encounter
--- OUTSIDE RECORDS SUMMARY | 2025-01-16 17:01 | XMS_ITS | Encounter Summary ---
Author Organization [employer] Address 75 [facility] 7t [place] [address] Care Team Providers Care Reading Assistant Name Role Phone Name, Iain WHITESIDE Primary Care Provider [phone] Ysabel Rivas PharmD Unavailable [phone] Reason for Visit * Reason Comments Med Refill Encounter Details Date Type Department Care Team (Late st Contact Info) Description 08/05/2023 Refill [facility] [address] [place] [address] Name, MD Iain 230 [place], [place] [phone] Chronic pain syndrome Social History Tobacco Use [...] Description 01/19/2025 4:00 PM EST Office Visit [address] [address] Trciia King MD [address] [place] [address] 02/07/2025 9:30 AM EST Office Visit [address] [address] Iain Moura MD [address] [place] [address] 04/20/2025 10:30 AM EST Telemedicine [address] [address] Milena Barnes, PAO documented as of this encounter Visit Diagnoses Diagnosis Chronic pain syndrome documented in this encounter Additional Health Concerns Assessment Noted Time PHQ-9 Depression Total Score: 0 08/29/19 23 9:29 AM EDT documented as of this encounter Care Teams Reading Assistant Relationship Specialty Start Date End Date Iain Moura MD [address] [place] [address] PCP - General Family Medicine 04/15/15 Ysabel Rivas PharmD [address] [place] [address] Pharmacist Internal Medicine 10/04/23 [facility] 02/23/24 documented as of this encounter
--- OUTSIDE RECORDS SUMMARY | 2025-01-16 17:01 | XMS_ITS | Encounter Summary ---
Author Organization [employer] Address 75 [facility] 7t [place] [address] Care Team Providers Care Register Repairer Name Role Phone Name, Iain WHITESIDE Primary Care Provider [phone] Ysabel Rivas PharmD Unavailable [phone] Encounter Details Date Type Department Care Team (Latest Contact Info) Description 01/12/2025 Travel Social History Tobacco Use Types Packs/Day Years [...] Description 01/19/2025 4:00 PM EST Office Visit [address] [address] Tricia King MD [address] [place] [address] 02/07/2025 9:30 AM EST Office Visit [address] [address] Name, MD Iain [address] [place] [address] 04/20/2025 10:30 AM EST Telemedicine [address] [phone] Milena Barnes RN documented as of this encounter Goals Goal Patient Goal Type Associated Problems Recent Progress Patient-Stated? Author Hemoglobin A1c < 7.5 Result Component 6.7( 10:12 AM EDT) No Ysabel Rivas, PharmD Note: Per ADA higher A1c goal would be appropriate given age. Will target 7.5% (over <8.0%) given cardiac hx (CAD, hx of [place]) Record your blood sugar as directed Result [...] documented as of this encounter Care Teams Register Repairer Relationship Specialty Start Date End Date Name, MD Iain 230 [place] [address] PCP - General Family Medicine 04/15/15 Ysabel Rivas PharmD [address] [place] [address] Pharmacist Internal Medicine 10/04/23 [facility] 02/23/24 documented as of this encounter
--- OUTSIDE RECORDS SUMMARY | 2025-01-16 17:01 | XMS_ITS | Encounter Summary ---
Author Organization [employer] Address 75 [facility] 7t [place] [address] Care Team Providers Care Acid Plant Helper Name Role Phone Name, Iain WHITESIDE Primary Care Provider Ysabel Rivas PharmD Unavailable [phone] Reason for Visit * Reason Comments Med Refill Encounter Details Date Type Department Care Team (Late st Contact Info) Description 01/14/2023 Refill [facility]INE 230 [place] [address] Name, MD Iain 230 [place], [place] [phone] Chronic pain syndrome Social History Tobacco Use [...] Description 01/19/2025 4:00 PM EST Office Visit [address] [address] Tricia King MD [address] [place] [address] 02/07/2025 9:30 AM EST Office Visit [address] [address] Iain Moura MD [address] [place] [address] 04/20/2025 10:30 AM EST Telemedicine [address] [address] Milena Barnes, PAO documented as of this encounter Visit Diagnoses Diagnosis Chronic pain syndrome documented in this encounter Additional Health Concerns Assessment Noted Time PHQ-9 Depression Total Score: 0 08/29/19 23 9:29 AM EDT documented as of this encounter Care Teams Acid Plant Helper Relationship Specialty Start Date End Date Iain Moura MD [address] [place] [address] PCP - General Family Medicine 04/15/15 Ysabel Rivas PharmD [address] [place] [address] Pharmacist Internal Medicine 10/04/23 [facility] 02/23/24 documented as of this encounter
--- OUTSIDE RECORDS SUMMARY | 2025-01-16 17:01 | XMS_ITS | Encounter Summary ---
Author Organization [employer] Address 75 [facility] 7t [place] [address] Care Team Providers Care Environmental Assistant Name Role Phone Name, Iain WHITESIDE Primary Care Provider [phone] Ysabel Rivas PharmD Unavailable [phone] Reason for Visit * Reason Comments Med Refill Encounter Details Date Type Department Care Team (Late st Contact Info) Description 10/08/2023 Refill [facility] MEDICINE 230 [place] [address] Name, MD Iain [address] [place], [place] [phone] Chronic pain syndrome Social History Tobacco Use [...] Description 01/19/2025 4:00 PM EST Office Visit [address] [address] Tricia King MD [address] [place] [address] 02/07/2025 9:30 AM EST Office Visit [address] [address] Name, MD Iain [address] [place] [address] 04/20/2025 10:30 AM EST Telemedicine [address] [address] Milena Barnes, PAO documented as of this encounter Goals Goal Patient Goal Type Associated Problems Recent Progress Patient-Stated? Author Hemoglobin A1c < 7.5 Result Component 6.7( 10:12 AM EDT) Ysabel Cervantes, PharmD Note: Per ADA higher A1c goal would be appropriate given age. Will target 7.5% (over <8.0%) given cardiac hx (CAD, hx of [place]) Record your blood sugar as directed Result [...] documented as of this encounter Care Teams Environmental Assistant Relationship Specialty Start Date End Date Name, MD Iain [address] [place] [address] PCP - General Family Medicine 04/15/15 Ysabel Rivas PharmD [address] [place] [address] Pharmacist Internal Medicine 10/04/23 [facility] 02/23/24 documented as of this encounter
--- OUTSIDE RECORDS SUMMARY | 2025-01-16 17:01 | XMS_ITS | Encounter Summary ---
Author Organization [employer] Address 75 [facility] 7t [place] [address] Care Team Providers Care Sales Operations Consultant Name Role Phone Name, Iain WHITESIDE Primary Care Provider [phone] Ysabel Rivas PharmD Unavailable [phone] Reason for Visit * Reason Onset Date Comments Med Refill 11/29/2024 Encounter Details Date Type Department Care Team ([facility] st Contact Info) Description 11/29/[address] [facility] MEDICINE 230 [place] [address] Name, MD Iain [address] [place] [address] Med Refill Social History Tobacco Use Types Packs/Day Years [...] encounter Miscellaneous Notes * Telephone Encounter - Joanie Tillman LPN - 11/29/2024 1:51 PM EDT Medication prescribed by DEL ACEVEDO * Telephone Encounter - Sabas Pabon - 11/29/2024 1:49 PM EDT TC from pt requesting medication refill. Medications needing refill : Eliquis 5 MG tablet To be sent to: [facility]/pharmacy #[id number] [place], [place] - [address] AT [facility] documented in this encounter Plan of Treatment Upcoming Encounters Date Type Department Care Team (Late st Contact Info) Description 01/19/2025 4:00 PM EST Office Visit [facility] MED[facility]INE 230 [place] [address] Tricia King MD 230 [place] [address] 02/07/2025 9:30 AM EST Office Visit [address] [place], [place] [phone] [place] [address] 04/20/2025 10:30 AM EST Telemedicine [address] [phone] Milena Barnes, RN documented as of this encounter Goals Goal Patient Goal Type Associated Problems Recent Progress Patient-Stated? Author Hemoglobin A1c < 7.5 Result Component 6.7( 10:12 AM EDT) No Ysabel Rivas, Toney Note: Per ADA higher A1c goal would be appropriate given age. Will target 7.5% (over <8.0%) given cardiac hx (CAD, hx of [place]) Record your blood sugar as directed Result [...] documented as of this encounter Care Teams Sales Operations Consultant Relationship Specialty Start Date End Date [place] [address] PCP - General Family Medicine 04/15/15 [place] [address] Pharmacist Internal Medicine 10/04/23 [facility] 02/23/24 documented as of this encounter
--- OUTSIDE RECORDS SUMMARY | 2025-01-16 17:01 | XMS_ITS | Encounter Summary ---
Author Organization [employer] Address 75 [facility] 7t [place] [address] Care Team Providers Care Telesales Representative Name Role Phone Name, Iain WHITESIDE Primary Care Provider [phone] Ysabel Rivas PharmD Unavailable [phone] Reason for Visit * Reason Comments Med Refill Encounter Details Date Type Department Care Team (Late st Contact Info) Description 07/06/2023 Refill [facility] MEDICINE 230 [place] [address] Name, MD Iain 230 [place], [place] [phone] Chronic pain syndrome Social History Tobacco Use [...] Description 01/19/2025 4:00 PM EST Office Visit [address] [address] Tricia King MD [address] [place] [address] 02/07/2025 9:30 AM EST Office Visit [address] [address] Iain Moura MD [address] [place] [address] 04/20/2025 10:30 AM EST Telemedicine [address] [address] Milena Barnes, PAO documented as of this encounter Visit Diagnoses Diagnosis Chronic pain syndrome documented in this encounter Additional Health Concerns Assessment Noted Time PHQ-9 Depression Total Score: 0 08/29/19 23 9:29 AM EDT documented as of this encounter Care Teams Telesales Representative Relationship Specialty Start Date End Date Iain Moura MD [address] [place] [address] PCP - General Family Medicine 04/15/15 Ysabel Rivas PharmD [address] [place] [address] Pharmacist Internal Medicine 10/04/23 [facility] 02/23/24 documented as of this encounter
--- OUTSIDE RECORDS SUMMARY | 2025-01-16 17:01 | XMS_ITS | Clinical Summary ---
Author Organization [facility], Address [address] [place] [address] [place] [address] Phone Care Team Providers Care Streetcar Repairer Helper Name Role Phone Name, Iain WHITESIDE Primary Care Provider [phone] Allergies Active Allergy Reactions Criticality Noted Date [...] Diabetes: Hemoglobin A1C 02/14/2021 11/15/2020 Influenza Vaccine (#1) 2024 Hepatitis B Vaccine Aged Out No [...] PM EDT) Hemoglobin A1C 9.2(H) (4.0-5.6) % [facility] Comment: MONITORING: In known diabetic patients, hemoglobin A1c targets should be discussed with health care provider. DIAGNOSTIC USE: The [place] Diabetes [employer] (ADA) and the World Health [...] Supplement 1 Testing performed or reported by [facility] Reference [employer], a Service of [facility], [address] [place] [address] Sujata Arreguin MD, Crab Butcher [facility]# [id number] Blood specimen (specimen) Venous blood / Unknown 11/15/2020 3:57 PM EDT 11/15/2020 3:58 PM EDT us Yfn Ramirez MD LAB BLOOD ORDERABLES Final Re sult [facility] from Last 3 Months or Most Recently Relevant to Health Maintenance Insurance Care Teams Streetcar Repairer Helper Relationship Specialty Start Date End Date Name, MD Iain [address] [place] [address] PCP - General Internal Medicine 09/23/20
--- OUTSIDE RECORDS SUMMARY | 2025-01-16 17:01 | XMS_ITS | Encounter Summary ---
Author Organization [employer] Address 75 [facility] 7t [place] [address] Care Team Providers Care Carton Filler Name Role Phone Name, Iain WHITESIDE Primary Care Provider [phone] Ysabel Rivas PharmD Unavailable [phone] Encounter Details Date Type Department Care Team ([facility] st Contact Info) Description 06/04/[address] [facility] MEDICINE 230 [place], [place] [phone] Name, MD Iain [address] [place] [address] Social History Tobacco Use Types Packs/Day Years [...] Description 01/19/2025 4:00 PM EST Office Visit [address] [address] Tricia King MD [address] [place] [address] 02/07/2025 9:30 AM EST Office Visit [address] [address] Name, MD Iain [address] [place] [address] 04/20/2025 10:30 AM EST Telemedicine [address] [address] Milena Barnes, PAO documented as of this encounter Visit Diagnoses Not on filedocumented in this encounter Additional Health Concerns Assessment Noted Time PHQ-9 Depression Total Score: 0 08/29/19 23 9:29 AM EDT documented as of this encounter Care Teams Carton Filler Relationship Specialty Start Date End Date NameIain MD [address] [place] [address] PCP - General Family Medicine 04/15/15 Ysabel Rivas PharmD [address] [place] [address] Pharmacist Internal Medicine 10/04/23 [facility] 02/23/24 documented as of this encounter
--- OUTSIDE RECORDS SUMMARY | 2025-01-16 17:01 | XMS_ITS | Encounter Summary ---
Author Organization [employer] Address 75 [facility] 7 [place] [address] Care Team Providers Care Lending Advisor Name Role Phone Name, Iain WHITESIDE Primary Care Provider [phone] Ysabel Rivas PharmD Unavailable Reason for Visit * Reason Onset Date Comments Call Back Request 01/12/2025 Encounter Details Date Type Department Care Team ([facility] st Contact Info) Description 01/12/2025 Telephone [facility] 230 [place] [address] Name, MD Iain 230 [place] [address] Call Back Request Social History Tobacco Use Types Packs/Day Years [...] encounter Miscellaneous Notes * Telephone Encounter - Iain Giles - 01/12/2025 9:57 AM EST Tc from pt awaiting a call from MANAGER DENTAL Nurse. Contact pt at [phone] documented in this encounter Plan of Treatment Upcoming Encounters Date Type Department Care Team ([facility] st Contact Info) Description 01/19/2025 4:00 PM EST Office Visit [address] [address] Tricia King MD [address] [place] [address] 02/07/2025 9:30 AM EST Office Visit [address] [address] Name, MD Iain [address] [place] [address] 04/20/2025 10:30 AM EST Telemedicine [address] [address] Milena Barnes, RN documented as of this encounter Goals Goal Patient Goal Type Associated Problems Recent Progress Patient-Stated? Author Hemoglobin A1c < 7.5 Result Component 6.7( 5 10:12 AM EDT) No Ysabel Rivas PharmD Note: Per ADA higher A1c goal would be appropriate given age. Will target 7.5% (over <8.0%) given cardiac hx (CAD, hx of [place]) Record your blood sugar as directed Result [...] documented as of this encounter Care Teams Lending Advisor Relationship Specialty Start Date End Date Name, MD Iain 230 [place] [address] PCP - General Family Medicine 04/15/15 Ysabel Rivas PharmD 230 [place] [address] Pharmacist Internal Medicine 10/04/23 [facility] 02/23/24 documented as of this encounter
--- OUTSIDE RECORDS SUMMARY | 2025-01-16 17:02 | XMS_ITS | Encounter Summary ---
Author Organization [employer] Address [address] [place] [address] 7t [place] [address] Care Team Providers Care Foundry Superintendant Name Role Phone Name, Iain WHITESIDE Primary Care Provider [phone] Ysabel Rivas PharmD Unavailable [phone] Reason for Visit * Reason Comments Med Refill Encounter Details Date Type Department Care Team (Late st Contact Info) Description 09/04/2022 Refill [facility] MEDICINE [address] [place] [address] [phone] Name, MD Iain [address] [place] [address] [phone] Chronic pain syndrome Social History Tobacco Use [...] Description 01/19/2025 4:00 PM EST Office Visit [facility] MEDICINE [address] [place] [address] [place] [address] 02/07/2025 9:30 AM EST Office Visit [facility] [place] [address] Name, [place] [address] 04/20/2025 10:30 AM EST Telemedicine [facility] [place] [address] Milena Barnes, PAO documented as of this encounter Visit Diagnoses Diagnosis Chronic pain syndrome documented in this encounter Additional Health Concerns Assessment Noted Time PHQ-9 Depression Total Score: 0 08/29/19 9:29 AM EDT documented as of this encounter Care Teams Foundry Superintendant Relationship Specialty Start Date End Date Name, [place] [address] PCP - General Family Medicine 04/15/15 [place] [address] Pharmacist Internal Medicine 10/04/23 [facility] 02/23/24 documented as of this encounter
--- OUTSIDE RECORDS SUMMARY | 2025-01-16 17:02 | XMS_ITS | Encounter Summary ---
Author Organization [employer] Address 75 [facility] 7t [place] [address] Care Team Providers Care Office Mail Clerk Name Role Phone Name, Iain WHITESIDE Primary Care Provider [phone] Ysabel Rivas PharmD Unavailable [phone] Reason for Visit * Reason Comments Med Refill Encounter Details Date Type Department Care Team (Late st Contact Info) Description 02/13/2024 Refill [facility] MEDICINE 230 [place] [address] Name, MD Iain 230 [place], [place] [phone] Social History Tobacco Use Types Packs/Day Years [...] placed to pt via BLS interpreting ([place] ID#[id number]). Spoke to pt spouse Katelyn regarding pt [...] 01/19/2025 4:00 PM EST Office Visit [facility] MEDICINE [address] [place] [address] Tricia King MD [address] [place] [address] 02/07/2025 9:30 AM EST Office Visit [address] [address] Name, MD Iain [address] [place] [address] 04/20/2025 10:30 AM EST Telemedicine [facility] MEDICINE [address] [place] [address] Milena Barnes, RN documented as of this [...] documented as of this encounter Care Teams Office Mail Clerk Relationship Specialty Start Date End Date Name, [place] [address] PCP - General Family Medicine 04/15/15 Ysabel Rivas PharmD [address] [place] [address] Pharmacist Internal Medicine 10/04/23 [facility] 02/23/24 documented as of this encounter
--- NOTE | 2025-01-31 11:32 | HO.ANESPROP2 ---
Documented by User: Kiara Palacios NP 02/05/25 10:39 HPI - Anesthesia Eval Consult details Narrative: 79yo M for Upper Endoscopy Cardiac optimized. Eval with [facility] cardiology 02/02/25. Multiple hospitalizations 2023 with pericardial effusion (resolved on imaging) and afib (eliquis). Stable and asymptomatic at preop visit. Pending echo order but not needed for EGD. Last EGD 02/2023 with MAC Cirrhosis Anesthesia Pre-Procedure Meds Is the patient on any of the following meds?: GLP1/DPP4 and SGLT2 Inhib PMFSH Active Problems Active Problems: All Active Problems Pericarditis (Acute) Dilated bile duct (Acute) Diastasis recti (Acute) Dysphagia (Acute) Helicobacter pylori gastritis (Acute) Personal history of colonic polyps (Acute) Cirrhosis (Acute) Past Medical History Medical History Chronic renal insufficiency Sleep apnea CVA (cerebral vascular accident) BPH (benign prostatic hyperplasia) Depression Alcohol use disorder Cirrhosis Elevated cholesterol Chronic prescription opiate use Obesity Type 2 diabetes Coronary artery disease Hypertension Family History Family history of problems with anesthesia: No Surgical History Surgical History Hx of transurethral resection of prostate History of esophagogastroduodenoscopy (EGD) Hx of colonoscopy History of Problems with Anesthesia: No Social History Social History Household Members: Spouse Housing: House Are you a primary child adolescent care to a significant other at home: No Do you presently have visiting nurse or other home services: Yes Patient Tobacco Use Status: Former Tobacco user Tobacco use type: Cigarette Have you been hit, kicked, punched, or otherwise hurt by someone within the past year? If so, by whom?: No Are you DNR?: No Advance Directives: No Advance Directives Information Provided: Yes Meds Allergies Allergy/AdvReac Type Severity Reaction Status Date / Time hydrocodone (Vicodin) Allergy Intermediate Rash Verified 08/09/24 09:05 Home Medications ?Medication ?Instructions ?Recorded ?Confirmed ?Last Taken ?Type atorvastatin 20 mg tablet 20 mg PO BEDTIME 01/06/22 01/31/25 Unknown History blood sugar diagnostic (FreeStyle #10 ea 01/06/22 Unknown History Lite Strips) lancets 33 gauge (TRUEplus Lancets) #100 ea 01/06/22 Unknown History metoprolol tartrate 50 mg tablet 50 mg PO BID 01/06/22 01/31/25 Unknown History trazodone 50 mg tablet 50 mg PO BEDTIME 01/06/22 01/31/25 Unknown History ferrous sulfate 325 mg (65 mg 325 mg PO DAILY 02/26/22 01/31/25 Unknown History iron) tablet losartan 50 mg tablet 50 mg PO DAILY 11/18/22 01/31/25 Unknown History multivitamin 1 tab PO DAILY 11/18/22 01/31/25 Unknown History sitagliptin phosphate 50 1 tab PO BID 11/18/22 01/31/25 02/01/25 History mg-metformin 500 mg tablet (Viviana) duloxetine 30 mg capsule,delayed 30 mg PO DAILY 12/30/22 01/31/25 Unknown History release loratadine 10 mg tablet 10 mg PO DAILY 05/29/24 02/06/25 Unknown History semaglutide 2 mg/dose (8 mg/3 mL) 2 mg subcut QWEEK 05/29/24 02/06/25 01/28/25 History subcutaneous pen injector (Ozempic) albuterol sulfate 90 mcg/actuation 2 puff inhalation Q4-6H PRN 01/31/25 01/31/25 Unknown History aerosol inhaler (Ventolin HFA) Shortness Of Breath Or Wheezing apixaban 5 mg tablet (Eliquis) 5 mg PO BID 01/31/25 01/31/25 02/01/25 History colchicine 0.6 mg tablet 0.6 mg PO BID 01/31/25 01/31/25 Unknown History empagliflozin 10 mg-metformin ER 1 tab PO DAILY 01/31/25 01/31/25 02/01/25 History 1,000 mg tablet,extended release 24hr (Synjardy XR) insulin glargine 100 unit/mL (3 12 unit subcut BEDTIME 01/31/25 01/31/25 02/05/25 History mL) subcutaneous pen (Lantus Solostar U-100 Insulin) Exam Pertinent Lab Results Pertinent Lab Results: Laboratory Tests 08/09/24 10:26 WBC 5.5 Hgb 14.7 D Hct 44.0 D Plt Count 183 Sodium 139 Potassium 5.1 Chloride 102 Carbon Dioxide 29 BUN 23 H Creatinine 1.07 Narrative Narrative: EKG 01/2025 Ventricular Rate: 55 BPM Atrial Rate: 55 BPM P-R Interval: 128 ms QRS Duration: 118 ms Q-T Interval: 494 ms QTC Calculation(Bazett): 472 ms P Spring: 96 degrees R Spring: -11 degrees T Spring: 148 degrees Sinus bradycardia Left ventricular hypertrophy with QRS widening and repolarization abnormality ST segment depression T wave inversions Abnormal ECG When compared with ECG of 01-Mar-2024 14:52, ST less depressed in Inferior leads Confirmed by Hany Boggs ([id number]) on 02/02/2025 12:55:08 PM CTA 02/2024 IMPRESSION: 1. No significant change of the right greater than left bilateral dependent reticular opacities compatible with known COVID infection and/or atelectasis. No consolidative pneumonia. 2. Decreasing pericardial effusion, now very small with a maximum thickness of about 0.6 cm. 3. No acute abnormality within the abdomen or pelvis. ECHO 02/2024 Summary 1) Technically difficult study 2) The LV systolic function is vigorous. The left ventricular ejection fraction is 65-70 %. There are no definite regional wall motion abnormalities; the apex is not well visualized due to foreshortening. 3) The left ventricular wall thickness is moderately increased. 4) The right ventricle is poorly visualized. The right ventricular size and function appears grossly normal. 5) There is a moderate pericardial effusion, noted most prominently adjacent to the RV free wall There is no clear evidence of cardiac tamponade. Comparison Comparison is made to the report of the study of March 02, 2018. Pericardial effusion is now present Assessment and Plan Assessment Anesthesia Assessment: Chart Reviewed Final Anesthetic Review Family History of Problems with Anesthesia: No History of Problems with Anesthesia: No Documented by User: Fadi Howe MD 02/06/25 08:04 [facility] Past Medical History Medical History Chronic renal insufficiency Sleep apnea CVA (cerebral vascular accident) BPH (benign prostatic hyperplasia) Depression Alcohol use disorder Cirrhosis Elevated cholesterol Chronic prescription opiate use Obesity Type 2 diabetes Coronary artery disease Hypertension Surgical History Surgical History Hx of transurethral resection of prostate History of esophagogastroduodenoscopy (EGD) Hx of colonoscopy Social History Social History Household Members: Spouse Housing: House Are you a primary child adolescent care to a significant other at home: No Do you presently have visiting nurse or other home services: Yes Patient Tobacco Use Status: Former Tobacco user Tobacco use type: Cigarette Have you been hit, kicked, punched, or otherwise hurt by someone within the past year? If so, by whom?: No Are you DNR?: No Advance Directives: No Advance Directives Information Provided: Yes Meds Allergies Allergy/AdvReac Type Severity Reaction Status Date / Time hydrocodone (Vicodin) Allergy Intermediate Rash Verified 08/09/24 09:05 Home Medications ?Medication ?Instructions ?Recorded ?Confirmed ?Last Taken ?Type atorvastatin 20 mg tablet 20 mg PO BEDTIME 01/06/22 01/31/25 Unknown History blood sugar diagnostic (FreeStyle #10 ea 01/06/22 Unknown History Lite Strips) lancets 33 gauge (TRUEplus Lancets) #100 ea 01/06/22 Unknown History metoprolol tartrate 50 mg tablet 50 mg PO BID 01/06/22 01/31/25 Unknown History trazodone 50 mg tablet 50 mg PO BEDTIME 01/06/22 01/31/25 Unknown History ferrous sulfate 325 mg (65 mg 325 mg PO DAILY 02/26/22 01/31/25 Unknown History iron) tablet losartan 50 mg tablet 50 mg PO DAILY 11/18/22 01/31/25 Unknown History multivitamin 1 tab PO DAILY 11/18/22 01/31/25 Unknown History sitagliptin phosphate 50 1 tab PO BID 11/18/22 01/31/25 02/01/25 History mg-metformin 500 mg tablet (Janumet) duloxetine 30 mg capsule,delayed 30 mg PO DAILY 12/30/22 01/31/25 Unknown History release loratadine 10 mg tablet 10 mg PO DAILY 05/29/24 02/06/25 Unknown History semaglutide 2 mg/dose (8 mg/3 mL) 2 mg subcut QWEEK 05/29/24 02/06/25 01/28/25 History subcutaneous pen injector (Ozempic) albuterol sulfate 90 mcg/actuation 2 puff inhalation Q4-6H PRN 01/31/25 01/31/25 Unknown History aerosol inhaler (Ventolin HFA) Shortness Of Breath Or Wheezing apixaban 5 mg tablet (Eliquis) 5 mg PO BID 01/31/25 01/31/25 02/01/25 History colchicine 0.6 mg tablet 0.6 mg PO BID 01/31/25 01/31/25 Unknown History empagliflozin 10 mg-metformin ER 1 tab PO DAILY 01/31/25 01/31/25 02/01/25 History 1,000 mg tablet,extended release 24hr (Synjardy XR) insulin glargine 100 unit/mL (3 12 unit subcut BEDTIME 01/31/25 01/31/25 02/05/25 History mL) subcutaneous pen (Lantus Solostar U-100 Insulin) Exam Airway Mallampati Class: II TM Dist: >3cm Neck ROM: Full Loose/Missing/Broken Teeth: Yes Assessment and Plan Assessment Anesthesia Assessment: Anesthesia Plan Discussed Final Anesthetic Review NPO: Yes ASA Class: III Final Preanesthetic Review: No Changes in Pt Med Stat, Meds/Allgs Chart Reviewed, Consent Obtained/Reviewed and Anes Risks/Benef Reviewed Patient Risk: Intermediate Procedure Risk: Low Anesthetic Plan Anesthetic Plan: MAC: Disposition: Standard PACU
[2025-01-31 14:29] VITALS: BMI 32.4
[2025-02-06 06:55] LABS: Glucose, Whole Blood 355 mg/dL (60-115)
[2025-02-06 07:00] VITALS: BP 137/55; PULSE 55; RESP 18; TEMP 36.9; O2SAT 95; BMI 32.1
[2025-02-06] MEDS: Lactated Ringers 1,000 ML 100 ML IVCONT (07:16)
--- NOTE | 2025-02-06 07:38 | PC.NURSE ---
5 units of lispro given sq per dr leary order for poc 335
--- NOTE | 2025-02-06 07:45 | MHC.SHP ---
Pre-Procedural Eval Section A - 24 Hr Update-Section A only Date of Service: 02/06/25 Section B - Complete if H&P > 30 days Chief Complaint: Unspecified cirrhosis of liver Details of Present Illness: Chronic renal insufficiency Sleep apnea CVA (cerebral vascular accident) BPH (benign prostatic hyperplasia) Depression Alcohol use disorder Cirrhosis Elevated cholesterol Chronic prescription opiate use Obesity Type 2 diabetes Coronary artery disease Hypertension Present Medications: see Short Stay Collaborative assessment Allergies: Allergies Allergy/AdvReac Type Severity Reaction Status Date / Time hydrocodone (Vicodin) Allergy Intermediate Rash Verified 08/09/24 09:05 Review of Systems Review of Systems Comment: Ten point ROS negative Exam Exam Comment: Gen appear: No acute distress HEENT: no icterus Chest: No overt resp distress Abd: soft, nontender, nondistended Psych: Stable affect, answering questions appropriately Neuro: A/Ox3 noted to move all extremities spontaneously Ext: no peripheral edema Plan Diagnosis/Plan: Unchanged I have reviewed the history and physical and performed a pertinent physical examination on my patient. No changes have occurred unless specified. Time Spent With Patient Time: Total time managing care of this patient today ____ minutes.
--- NOTE | 2025-02-06 08:08 | P.OP_ITS ---
Operative Note Operative Note Date of Service: 02/06/25 Narrative: Procedure: Esophagogastroduodenoscopy Endoscopist: Margaret Bruce MD Indication: Cirrhosis r/o varices Anesthesia Provider: Fadi Howe MD Anesthesia Type: MAC ?? EGD Procedure:?? The procedure, indications, preparation and potential complications were revie wed with the patient, who indicated understanding and gave written informed consent to proceed. A physical exam was performed. The endoscope was introduced through the mouth, and advanced to the second part of duodenum. The mucosa was carefully examined on slow withdrawal of the endoscope. The patient tolerated the procedure well. There were no immediate complications.? ? EGD Findings:? * Esophagus:? Normal mucosa noted in the entire esophagus. The Z line was at 40 cm and irregular to 39 cm however biopsies for BE were not obtained due to patient's age and length of segment. * Stomach:? Erythema and edema in the antrum was noted. Retroflexion was performed in the cardia. No fundal varices were noted. Cold forceps biopsies were taken from the gastric body and antrum. * Duodenum:? Normal mucosa was noted in the whole of the examined duodenum. One sessile polyp of size 12 mm noted in the duodenal bulb. Cold forceps polypectomy was performed. The polyp was completely removed and retrieved. ? EGD Impressions:? * Irregular Z line * Gastritis (biopsy) * Duodenal polyp (biopsy) Recommendations:?? * Follow biopsy results. Our office will call or send a letter with results within 7-10 days. * Continue PPI therapy. * Avoid NSAIDs. * Repeat EGD in 2 years for variceal screening depending on overall health status. * Patient also had an outpatient ultrasound yesterday. Contracted gallbladder noted. Will obtain LFTs in PACU. Above has been reviewed with the patient.
[2025-02-06 08:14] VITALS: BP 100/60; PULSE 55; RESP 16; TEMP 36.8; O2SAT 100
[2025-02-06 08:29] VITALS: BP 100/60; PULSE 57; RESP 16; O2SAT 97
[2025-02-06 08:35] VITALS: BP 122/69; PULSE 64; RESP 16; TEMP 36.6; O2SAT 100
[2025-02-06 08:56] LABS: Alanine Aminotransferase 10 U/L (0-40); Albumin Level 3.6 g/dL (3.5-5.0); Alkaline Phosphatase 70 U/L (39-117); Aspartate Amino Transferase 21 U/L (5-37); Total Protein 6.9 g/dL (6.5-8.0)
== END 2025-02-06 09:30 | disposition home or self-care (01) ==
PROVIDERS: PCP Internal Medicine Geriatric Medicine; Visit Provider Internal Medicine
PROC: 0DJ08ZZ Inspection of Upper Intestinal Tract, Via Natural or Artificial Opening Endoscopic (ICD-10-PCS; CPT 43235; principal; 2025-02-06 07:30)
DX: K74.60 Unspecified cirrhosis of liver (principal); E11.9 Type 2 diabetes mellitus without complications; K83.8 Other specified diseases of biliary tract; Z86.0101 Personal history of adenomatous and serrated colon polyps; K31.7 Polyp of stomach and duodenum; K29.70 Gastritis, unspecified, without bleeding
CPT/HCPCS: 43239; 36415; 80076; 82947; 88305; 88313; 88342; J2003; J2704

== ENCOUNTER → 2025-02-06 06:38 | Outpatient (BNV) | payer OTHER, SELFPAY | PROVIDERS: PCP Internal Medicine Geriatric Medicine; Visit Provider Internal Medicine | DX: K74.60 Unspecified cirrhosis of liver (principal); K22.89 Other specified disease of esophagus; K29.70 Gastritis, unspecified, without bleeding; K31.7 Polyp of stomach and duodenum | CPT/HCPCS: 43239 ==